=== PATIENT | female | born 1990 | race American Indian/Alaskan Native ===

== ENCOUNTER 2017-01-28 14:08 | Observation (INO) | payer MEDICAID, OTHER ==
[2017-01-28 14:24] VITALS: BMI 24.3
[2017-01-28 14:41] VITALS: BP 101/57; TEMP 97.5
[2017-01-28] MEDS ORDERED: Sodium Chloride 0.9% 1,000 ML IV STA (14:45)
[2017-01-28 15:05] LABS: URINE APPEARANCE CLEAR (CLEAR); URINE BILIRUBIN NEGATIVE (NEGATIVE); URINE BLOOD MODERATE (NEGATIVE); URINE COLOR YELLOW (YELLOW); URINE GLUCOSE (UA) NEGATIVE (NEGATIVE); URINE KETONE TRACE mg/dL (NEGATIVE); URINE LEUKOCYTE ESTERASE NEGATIVE Leu/uL (NEGATIVE); URINE PROTEIN NEGATIVE mg/dL (<30 mg/dL); URINE UROBILINOGEN 0.2 E.U./dL (<1 E.U./dL)
[2017-01-28 15:13] LABS: ADD MANUAL DIFF? NO
[2017-01-28 15:14] LABS: URINE BACTERIA FEW (NEG); URINE EPITHELIAL CELLS 0 - 2 /hpf (0-5); URINE WBC 0 - 2 /hpf (0-6)
[2017-01-28 15:17] LABS: BASO # 0.01 K/mm3 (0.0-2.0); BASO % 0.2 % (0.0-3.0); EOS # 0.1 (0.0-0.7); EOS % 2.5 % (1.5-5.0); GRAN # 2.44 (1.4-6.5); GRAN % 50.4 % (50.0-68.0); HEMATOCRIT 31.6 % (36.0-48.0); LYMPH # 2.1 (1.2-3.4); MEAN CORPUSCULAR HEMOGLOBIN 38.3 pg (25.0-35.0); MEAN CORPUSCULAR HGB CONC 36.1 g/dl (31.0-37.0); MEAN PLATELET VOLUME 8.7 fl (7.0-11.0); MONO # 0.1 (0.1-0.6); MONO % 2.9 % (1.0-6.0); PLATELET COUNT 250 10^3/uL (120.0-450.0); RED CELL DISTRIBUTION WIDTH 14.8 % (11.5-14.5); WHITE BLOOD COUNT 4.8 10^3/ul (4.5-11.0)
[2017-01-28 15:30] LABS: ALB/GLOB RATIO 1.4 (1.1-1.8); ALKALINE PHOSPHATASE 51 U/L (38-133); ALT/SGPT 25 U/L (7-56); AMYLASE 99 U/L (35-125); AST/SGOT 40 U/L (15-39); BILIRUBIN,TOTAL 0.9 mg/dL (0.2-1.3); BLOOD UREA NITROGEN 15 mg/dL (7-21); CALCIUM 9.7 mg/dL (8.4-10.5); CARBON DIOXIDE 31 mmol/L (21-33); CHLORIDE 102 mmol/L (98-107); GFR AFRICAN-AMERICAN > 60; GLUCOSE,RANDOM 84 mg/dL (70-110); LIPASE 85 U/L (23-300); POTASSIUM 4.7 mmol/L (3.6-5.0); SODIUM 140 mmol/L (132-148)
--- NOTE | 2017-01-28 16:20 | ED PDOC ---
Arrival/HPI - General Chief Complaint: GI Problem Time Seen by Provider: 01/28/17 14:29 Historian: Patient - History of Present Illness Narrative History of Present Illness (Text): 01/28/17 16:18 26-year-old female presents today with worsening abdominal pain since mid December. Patient states for almost a month the patient has been having diffuse abdominal pain greater in the right upper quadrant of the abdomen. Patient denies nausea vomiting or diarrhea. Complaining of urinating more frequently. Denies dysuria. Denies vaginal bleeding or vaginal discharge. Denies . No medications have been taken for pain at home. Patient denies any alleviating or exacerbating factors. Patient states she is also having back pain. No chest pain or shortness of breath. No other complaints Past Medical History - Provider Review Nursing Documentation Reviewed: Yes - Travel History Have you recently traveled outside [place] w/in the past 3 mons?: No - Infectious Disease Hx of Infectious Diseases: None - Tetanus Immunization Tetanus Immunization: Unknown - Past Medical History Past Medical History: No Previous - Cardiac Hx Cardiac Disorders: No - Pulmonary Hx Respiratory Disorders: No - Neurological Hx Neurological Disorder: No - HEENT Hx HEENT Disorder: No - Renal Hx Renal Disorder: No - Endocrine/Metabolic Hx Endocrine Disorders: No - Hematological/Oncological Hx Blood Disorders: No - Integumentary Hx Dermatological Disorder: No - Musculoskeletal/Rheumatological Hx Musculoskeletal Disorders: No - Gastrointestinal Hx Gastrointestinal Disorders: No - Genitourinary/Gynecological Hx Genitourinary Disorders: No - Psychiatric Hx Depression: No Hx Emotional Abuse: No Hx Physical Abuse: No Hx Substance Use: No - Past Surgical History Past Surgical History: No Previous - Anesthesia Hx Anesthesia: No Hx Anesthesia Reactions: No Hx Malignant Hyperthermia: No - Suicidal Assessment Feels Threatened In Home Enviroment: No Family/Social History - Physician Review Nursing Documentation Reviewed: Yes Family/Social History: Unknown Family HX Smoking Status: Former Smoker Hx Alcohol Use: No Hx Substance Use: No Hx Substance Use Treatment: No Allergies/Home Meds Allergies/Adverse Reactions: Allergies citric acid Allergy (Verified 01/28/17 14:24) ANAPHYLAXIS ORANGE Allergy (Verified 09/01/16 17:58) SHORTNESS OF BREATH Review of Systems - Review of Systems Constitutional: absent: Fatigue, Fevers Respiratory: absent: SOB, Cough Cardiovascular: absent: Chest Pain, Palpitations Gastrointestinal: Abdominal Pain. absent: Constipation, Diarrhea, Nausea, Vomiting, Appetite Changes Genitourinary Female: Frequency. absent: Dysuria, Hematuria, Vaginal Bleeding, Vaginal Discharge Musculoskeletal: Back Pain. absent: Arthralgias, Neck Pain Skin: absent: Rash, Pruritis Neurological: absent: Headache, Dizziness Psychiatric: absent: Anxiety, Depression Physical Exam Vital Signs Reviewed: Yes Vital Signs Temp Pulse Resp BP Pulse Ox 01/28/17 16:25 95 H 16 98 01/28/17 14:40 97.5 F L 97 H 18 101/57 L 100 Temperature: Afebrile Blood Pressure: Normal Pulse: Regular Respiratory Rate: Normal Appearance: Positive for: Well-Appearing, Non-Toxic, Comfortable Pain Distress: None Mental Status: Positive for: Alert and Oriented X 3 - Systems Exam Head: Present: Atraumatic Mouth: Present: Moist Mucous Membranes Neck: Present: Normal Range of Motion Respiratory/Chest: Present: Clear to Auscultation, Good Air Exchange. No: Respiratory Distress, Accessory Muscle Use Cardiovascular: Present: Regular Rate and Rhythm, Normal S1, S2. No: Murmurs Abdomen: Present: Tenderness (+ minimal ruq tenderness; ), Normal Bowel Sounds. No: Distention, Peritoneal Signs, Rebound Back: Present: Normal Inspection. No: CVA Tenderness, Midline Tenderness, Paraspinal Tenderness Neurological: Present: GCS=15, Speech Normal Skin: Present: Warm, Dry, Normal Color. No: Rashes Psychiatric: Present: Alert, Oriented x 3 Medical Decision Making ED Course and Treatment: 01/28/17 16:32 Patient is nontoxic well appearing with stable vital signs presenting with abdominal pain ruq, and lower abdomen. CBC wnl CMP wnl Amylase wnl Lipase wnl Urinalysis + blood CAT scan:FINDINGS: LOWER THORAX: Unremarkable. LIVER: Unremarkable. No gross lesion or ductal dilatation. GALLBLADDER AND BILE DUCTS: Unremarkable. PANCREAS: Unremarkable. No gross lesion or ductal dilatation. SPLEEN: Unremarkable. Small accessory splenule. ADRENALS: Unremarkable. No mass. KIDNEYS AND URETERS: Unremarkable. No hydronephrosis. No solid mass. VASCULATURE: Unremarkable. No aortic aneurysm. BOWEL: Unremarkable. No obstruction. No gross mural thickening. Constipation without fecal impaction or obstruction. APPENDIX: Unremarkable. Normal appendix. PERITONEUM: Unremarkable. No free fluid. No free air. LYMPH NODES: Multiple small mesenteric lymph nodes compatible with mesenteric adenitis. Similar small periaortic lymph nodes identified none larger than 1 cm. BLADDER: Unremarkable. REPRODUCTIVE: Left ovarian cyst 2.1 x 3.3 cm. BONES: No acute fracture. OTHER FINDINGS: None. IMPRESSION: 1. No evidence of renal calculus disease, obstructive uropathy, hydroureter. No bladder abnormalities identified. 2. Findings suggestive of mesenteric adenitis. 3. Unilateral left-sided adnexal cyst. Patient reassessment: pt non toxic well appearing; no distress. eating in er. Discussed all results with patient in depth all aspects of this case were discussed the attending of record. Impression: Abdominal pain, mesenteric adenitis, ovarian cyst Motrin every 6 hours as needed for pain Follow up with primary care physician within the next 2 days Follow up with assistant public defender within the next 2 days. Return immediately if symptoms worsen persist or if new symptoms develop: High fevers, increasing pain, vomiting, diarrhea or any other concerning symptoms develop - Lab Interpretations Lab Results: Lab Results 01/28/17 14:30: Urine Color Yellow, Urine Appearance Clear, Urine pH 6.0, Ur Specific Hamilton >= 1.030, Urine Protein Negative, Urine Glucose (UA) Negative, Urine Ketones Trace H, Urine Blood Moderate H, Urine Nitrate Negative, Urine Bilirubin Negative, Urine Urobilinogen 0.2, Ur Leukocyte Esterase Negative, Urine RBC 2 - 5, Urine WBC 0 - 2, Ur Epithelial Cells 0 - 2, Urine Bacteria Few , Urine HCG, Qual Negative - Medication Orders Current Medication Orders: Discontinued Medications Sodium Chloride (Sodium Chloride 0.9%) 1,000 mls @ 999 mls/hr IV .Q1H1M STA Stop: 01/28/17 15:45 Last Admin: 01/28/17 15:16 Dose: 999 MLS/HR eMAR Start Stop Document 01/28/17 15:16 [email or web address] (Rec: 01/28/17 15:16 [email or web address] [id number]) Intravenous Solution Start Date 01/28/17 Start Time 15:16 End Date 01/28/17 ED OBSERVATION Discharge: Yes Date of observation admission: 01/28/17 Time of observation admission: 14:45 - Observation admission statement Patient is being placed in observation because:: abdominal pain - Goals of Observation Goals of observation are:: improvement in symptoms. diagnosis of pain - Progress Note Progress Note: 01/28/17 15:55 pt non toxic well appearing; no distress. 01/28/17 18:18 pt non toxic well appearing; no distress. stable vitals. Disposition/Present on Arrival - Present on Arrival Any Indicators Present on Arrival: No History of DVT/PE: No History of Uncontrolled Diabetes: No Urinary Catheter: No History of Decub. Ulcer: No History Surgical Site Infection Following: None - Disposition Have Diagnosis and Disposition been Completed?: Yes Diagnosis: Abdominal pain, Mesenteric adenitis, Ovarian cyst Disposition: HOME/ ROUTINE Disposition Time: 18:21 Patient Plan: Discharge Patient Problems: Current Active Problems Problem Status Diagnosed Abdominal pain Acute Mesenteric adenitis Acute Ovarian cyst Acute Condition: GOOD
[2017-01-28 16:26] VITALS: PULSE 95; RESP 16; O2SAT 98
--- NOTE | 2017-01-28 18:14 | CT ---
PROCEDURE: CT Abdomen and Pelvis without intravenous contrast HISTORY: right sided ABDOMINAL PAIN/ back pain By history, negative test (concurrent with this examination). COMPARISON: None. TECHNIQUE: Unenhanced study. Neither oral nor intravenous contrast administered. Radiation dose: Total exam DLP = 696.71 mGy-cm. FINDINGS: LOWER THORAX: Unremarkable. LIVER: Unremarkable. No gross lesion or ductal dilatation. GALLBLADDER AND BILE DUCTS: Unremarkable. PANCREAS: Unremarkable. No gross lesion or ductal dilatation. SPLEEN: Unremarkable. Small accessory splenule. ADRENALS: Unremarkable. No mass. KIDNEYS AND URETERS: Unremarkable. No hydronephrosis. No solid mass. VASCULATURE: Unremarkable. No aortic aneurysm. BOWEL: Unremarkable. No obstruction. No gross mural thickening. Constipation without fecal impaction or obstruction. APPENDIX: Unremarkable. Normal appendix. PERITONEUM: Unremarkable. No free fluid. No free air. LYMPH NODES: Multiple small mesenteric lymph nodes compatible with mesenteric adenitis. Similar small periaortic lymph nodes identified none larger than 1 cm. BLADDER: Unremarkable. REPRODUCTIVE: Left ovarian cyst 2.1 x 3.3 cm. BONES: No acute fracture. OTHER FINDINGS: None. IMPRESSION: 1. No evidence of renal calculus disease, obstructive uropathy, hydroureter. No bladder abnormalities identified. 2. Findings suggestive of mesenteric adenitis. 3. Unilateral left-sided adnexal cyst.
== END 2017-01-28 18:22 | disposition home or self-care (01) ==
LOC: ED 14:08 → EROBSV 14:45
PROVIDERS: ADMIT Emergency Medicine; ATTEND Emergency Medicine
DX: R10.84 Generalized abdominal pain (principal); I88.0 Nonspecific mesenteric lymphadenitis; N83.202 Unspecified ovarian cyst, left side; Z87.891 Personal history of nicotine dependence
CPT/HCPCS: 74176; 80053; 81001; 82150; 83690; 84703; 85025; 99284; G0378; J7040

== ENCOUNTER 2017-10-02 13:28 | Emergency (ER) | payer MEDICAID, OTHER ==
[2017-10-02 13:40] VITALS: RESP 18; TEMP 98.3; O2SAT 100; BMI 25.8
--- NOTE | 2017-10-02 15:31 | ED PDOC ---
Arrival/HPI - General Chief Complaint: Lower Extremity Problem/Injury Time Seen by Provider: 10/02/17 13:46 Historian: Patient - History of Present Illness Narrative History of Present Illness (Text): 10/02/17 17:52 27 y/o female presents to the ED complaining of right knee pain since this morning. Pt states she's had the same knee pain intermittently for 8 yrs. States 8 yrs ago she had a knee injury from playing basketball. Every since then , she's had reoccurrence of pain everytime it's cold outside. Pt states she took Aspirin this morning with relief of pain. States last time she had an XR of the knee was 8 yrs ago. Denies any new trauma, fall, numbness of the lower extremity or any other symptoms. Past Medical History - Provider Review Nursing Documentation Reviewed: Yes - Travel History Have you recently traveled outside [place] w/in the past 3 mons?: No - Past History Past History: Non-Contributing - Infectious Disease Hx of Infectious Diseases: None - Tetanus Immunization Tetanus Immunization: Unknown - Past Medical History Past Medical History: No Previous - Cardiac Hx Cardiac Disorders: No - Pulmonary Hx Respiratory Disorders: No - Neurological Hx Neurological Disorder: No - HEENT Hx HEENT Disorder: No - Renal Hx Renal Disorder: No - Endocrine/Metabolic Hx Endocrine Disorders: No - Hematological/Oncological Hx Blood Disorders: No - Integumentary Hx Dermatological Disorder: No - Musculoskeletal/Rheumatological Hx Musculoskeletal Disorders: No - Gastrointestinal Hx Gastrointestinal Disorders: No - Genitourinary/Gynecological Hx Genitourinary Disorders: No - Psychiatric Hx Depression: No Hx Emotional Abuse: No Hx Physical Abuse: No Hx Substance Use: No - Past Surgical History Past Surgical History: No Previous - Anesthesia Hx Anesthesia: No Hx Anesthesia Reactions: No Hx Malignant Hyperthermia: No - Suicidal Assessment Feels Threatened In Home Enviroment: No Family/Social History - Physician Review Nursing Documentation Reviewed: Yes Family/Social History: Unknown Family HX Smoking Status: Former Smoker Hx Alcohol Use: No Hx Substance Use: No Hx Substance Use Treatment: No Allergies/Home Meds Allergies/Adverse Reactions: Allergies citric acid Allergy (Verified 10/02/17 13:40) ANAPHYLAXIS ORANGE Allergy (Verified 10/02/17 13:40) SHORTNESS OF BREATH Review of Systems - Physician Review All systems were reviewed & negative as marked: Yes - Review of Systems Constitutional: absent: Fevers Musculoskeletal: Other (right knee pain) Skin: Normal Psychiatric: Normal Physical Exam Vital Signs Reviewed: Yes Vital Signs Temp Pulse Resp BP Pulse Ox 10/02/17 15:49 91 H 18 117/72 100 10/02/17 13:37 98.3 F 97 H 18 112/75 100 Temperature: Afebrile Blood Pressure: Normal Pulse: Regular Respiratory Rate: Normal Appearance: Positive for: Well-Appearing, Non-Toxic Pain Distress: None Mental Status: Positive for: Alert and Oriented X 3 - Systems Exam Lower Extremity: Present: Normal Inspection, NORMAL PULSES, Normal ROM, Tenderness (mild tenderness on medial aspect of right knee), Neurovascularly Intact. No: CALF TENDERNESS, Swelling, Erythema, Deformity Neurological: Present: GCS=15 Skin: Present: Warm, Dry Psychiatric: Present: Alert, Oriented x 3 Medical Decision Making ED Course and Treatment: 10/02/17 18:15 Knee pain for 8 yrs with recent reoccurence since this morning. No pain while in the ED. XR of knee negative for fracture or any acute pathology. No reoccurrence of pain while in the ED. BERNICE wrap ordered. Follow up with PCP in 2 days advised. Pt expressed understanding and agrees with the plan. Reassessment Condition: Unchanged - RAD Interpretation Radiology Orders: 10/02/17 14:32 KNEE W PATELLA RIGHT 3 VIEW [RAD] Stat Disposition/Present on Arrival - Present on Arrival Any Indicators Present on Arrival: No History of DVT/PE: No History of Uncontrolled Diabetes: No Urinary Catheter: No History of Decub. Ulcer: No History Surgical Site Infection Following: None - Disposition Have Diagnosis and Disposition been Completed?: Yes Diagnosis: Knee pain, chronic Disposition: HOME/ ROUTINE Disposition Time: 15:28 Patient Plan: Discharge Condition: STABLE Discharge Instructions (ExitCare): Knee Pain (ED) Print Language: CYPRIOT Additional Instructions: Rest,apply ice, use bernice wrap for compression. Take Naproxen as needed for pain. FOllow up with a r specialist if no improvement of pain within 5 days. Return to the ED if symptoms worsen. Prescriptions: Naproxen [Naprosyn] 500 mg PO BID PRN #30 tablet PRN Reason: Pain, Moderate (4-7) Referrals: Susan Dexter MD [Primary Care Provider] - Follow up with primary
--- NOTE | 2017-10-02 15:34 | RAD ---
PROCEDURE: Right Knee Radiographs. HISTORY: knee pain COMPARISON: None. FINDINGS: BONES: Normal. No fracture. JOINTS: Normal. No osteoarthritis. JOINT EFFUSION: None. OTHER FINDINGS: None. IMPRESSION: Normal radiographs of the right knee.
[2017-10-02 16:00] VITALS: BP 117/72; PULSE 91
== END 2017-10-02 15:49 | disposition home or self-care (01) ==
LOC: ED 13:28
DX: M25.561 Pain in right knee (principal); G89.29 Other chronic pain

== ENCOUNTER 2017-12-03 06:08 | Emergency (ER) | payer OTHER ==
[2017-12-03 07:04] VITALS: RESP 16
[2017-12-03 07:23] VITALS: PULSE 82; O2SAT 99
[2017-12-03] MEDS ORDERED: Sodium Chloride 0.9% 1,000 ML IV STA (07:32)
[2017-12-03] MEDS ORDERED: Iohexol 240 (50 ml) ONE (07:37)
--- NOTE | 2017-12-03 08:07 | ED PDOC ---
Arrival/HPI - General Chief Complaint: Medical Clearance Time Seen by Provider: 12/03/17 07:15 Historian: Patient - History of Present Illness Narrative History of Present Illness (Text): 12/03/17 08:07 A 27 year old female presents to the emergency department complaining of diffuse abdominal pain for a month. Notes pain has been increasing over the past week. Patient reports similar complaint 8-9 months ago, where she was evaluated in emergency department, discharged and never followed up with outbound sales executive or physician. Patient denies any fever, nausea, vomiting, blood in stool, blood in urine, dysuria or any other complaints at this time. Time/Duration: Other (month) Symptom Onset: Sudden Symptom Course: Unchanged Activities at Onset: Rest Context: Home Associated Symptoms (Text): none Past Medical History - Provider Review Nursing Documentation Reviewed: Yes - Past History Past History: Non-Contributing - Infectious Disease Hx of Infectious Diseases: None - Tetanus Immunization Tetanus Immunization: Unknown - Past Medical History Past Medical History: No Previous - Cardiac Hx Cardiac Disorders: No - Pulmonary Hx Respiratory Disorders: No - Neurological Hx Neurological Disorder: No - HEENT Hx HEENT Disorder: No - Renal Hx Renal Disorder: No - Endocrine/Metabolic Hx Endocrine Disorders: No - Hematological/Oncological Hx Blood Disorders: No - Integumentary Hx Dermatological Disorder: No - Musculoskeletal/Rheumatological Hx Musculoskeletal Disorders: No - Gastrointestinal Hx Gastrointestinal Disorders: No - Genitourinary/Gynecological Hx Genitourinary Disorders: No - Psychiatric Hx Depression: No Hx Emotional Abuse: No Hx Physical Abuse: No Hx Substance Use: No - Past Surgical History Past Surgical History: No Previous - Anesthesia Hx Anesthesia: No Hx Anesthesia Reactions: No Hx Malignant Hyperthermia: No - Suicidal Assessment Feels Threatened In Home Enviroment: No Family/Social History - Physician Review Nursing Documentation Reviewed: Yes Family/Social History: No Known Family HX Smoking Status: Never Smoked Hx Alcohol Use: No Frequency of alcohol use: Daily Hx Substance Use: No Hx Substance Use Treatment: No Allergies/Home Meds Allergies/Adverse Reactions: Allergies No Known Allergies Allergy (Verified 12/03/17 07:05) Review of Systems - Physician Review All systems were reviewed & negative as marked: Yes - Review of Systems Constitutional: absent: Fevers Gastrointestinal: Abdominal Pain (diffuse). absent: Nausea, Vomiting, Hematochezia Genitourinary Female: absent: Dysuria, Hematuria Physical Exam Vital Signs Reviewed: Yes Vital Signs Temp Pulse Resp BP Pulse Ox 12/03/17 11:00 98.1 F 82 16 111/72 99 12/03/17 07:19 98.4 F 82 16 123/67 99 12/03/17 06:21 99.3 F 121 H 16 115/58 L 98 Temperature: Afebrile Blood Pressure: Hypotensive Pulse: Tachycardic Respiratory Rate: Normal Appearance: Positive for: Well-Appearing, Non-Toxic, Comfortable Pain Distress: None Mental Status: Positive for: Alert and Oriented X 3 - Systems Exam Head: Present: Atraumatic, Normocephalic Pupils: Present: PERRL Extroacular Muscles: Present: EOMI Conjunctiva: Present: Normal Mouth: Present: Moist Mucous Membranes Neck: Present: Normal Range of Motion Respiratory/Chest: Present: Clear to Auscultation, Good Air Exchange. No: Respiratory Distress, Accessory Muscle Use Cardiovascular: Present: Regular Rate and Rhythm, Normal S1, S2. No: Murmurs Abdomen: Present: Tenderness (diffuse), Normal Bowel Sounds, Other (not cooperative with exam, abd soft, positive bowel sounds). No: Distention, Peritoneal Signs Back: Present: Normal Inspection Upper Extremity: Present: Normal Inspection. No: Cyanosis, Edema Lower Extremity: Present: Normal Inspection. No: Edema Neurological: Present: GCS=15, CN II-XII Intact, Speech Normal Skin: Present: Warm, Dry, Normal Color. No: Rashes Psychiatric: Present: Alert, Oriented x 3, Normal Insight, Normal Concentration Medical Decision Making ED Course and Treatment: 12/03/17 08:04 Impression: A 27 year old female with diffuse abdominal pain. Plan: -- CT abd/pelvis -- labs -- Urinalysis -- Pepcid, IV fluids -- Reassess and disposition Prior Visits: Notes and results from previous visits were reviewed. Patient was last seen in the emergency department on 10/02/17 for evaluation of right knee pain. Progress Notes: 12/03/17 10:24 CT Abdomen and Pelvis with contrast Creator : Sidney Torres MD FINDINGS: LOWER THORAX: Unremarkable. LIVER: Unremarkable. No gross lesion or ductal dilatation. GALLBLADDER AND BILE DUCTS: Unremarkable. PANCREAS: Unremarkable. No gross lesion or ductal dilatation. SPLEEN: Unremarkable. ADRENALS: Unremarkable. No mass. KIDNEYS AND URETERS: Unremarkable. No hydronephrosis. No solid mass. VASCULATURE: Unremarkable. No aortic aneurysm. BOWEL: Unremarkable. No obstruction. No gross mural thickening. APPENDIX:Normal appendix. PERITONEUM: Unremarkable. No free fluid. No free air. LYMPH NODES: Unremarkable. No enlarged lymph nodes. BLADDER: Unremarkable. REPRODUCTIVE: There is a small amount of fluid in the cul-de-sac. Bilateral ovarian cysts are seen. BONES: No acute fracture. IMPRESSION: No evidence of appendicitis. Bilateral ovarian cysts. Small amount of fluid in the cul-de-sac consistent with recent cyst rupture. 12/03/17 10:45 On re-evaluation, patient feels better and is in no acute distress. I have discussed the results and plan with the patient, who expresses understanding. Patient in agreement with plan to be discharged home. Patient is stable for discharge. Patient was instructed to follow up with physician or return if symptoms worsen or new concerning symptoms arise. - Lab Interpretations Lab Results: 12/03/17 08:00 12/03/17 08:00 Lab Results 12/03/17 08:00: Sodium 144, Potassium 3.9, Chloride 108 H, Carbon Dioxide 25, Anion Gap 16, BUN 11, Creatinine 0.8, Est GFR ( Amer) > 60, Est GFR (Non- Af Amer) > 60, Random Glucose 92, Calcium 9.7, Total Bilirubin 0.5, AST 49 H, ALT 46, Alkaline Phosphatase 62, Total Protein 7.9, Albumin 4.7, Globulin 3.2, Albumin/Globulin Ratio 1.5, Amylase 67, Lipase 73 12/03/17 08:00: Urine Color Yellow, Urine Appearance Turbid, Urine pH 6.0, Ur Specific M[place]ers >= 1.030, Urine Protein Trace H, Urine Glucose (UA) Negative, Urine Ketones Trace H, Urine Blood Large H, Urine Nitrate Negative, Urine Bilirubin Negative, Urine Urobilinogen 1.0 H, Ur Leukocyte Esterase Negative, Urine RBC 10 - 15, Urine WBC 0 - 2, Ur Epithelial Cells 10 - 12, Urine Bacteria Mod 12/03/17 08:00: WBC 9.2 D, RBC 3.38 L, Hgb 12.6, Hct 37.4, MCV 110.7 H, MCH 37.3 H, MCHC 33.7, RDW 13.7, Plt Count 428, MPV 8.9, Gran % 68.7 H, Lymph % ( Auto) 25.5, [place] % (Auto) 4.1, Eos % (Auto) 1.5, Baso % (Auto) 0.2, Gran # 6.33 , Lymph # 2.4, Cand[place] # 0.4, Eos # 0.1, Baso # 0.02 I have reviewed the lab results: Yes - RAD Interpretation Radiology Orders: 12/03/17 07:32 ABD PELVIS PO & IV CONTRAST [CT] Stat - Medication Orders Current Medication Orders: Discontinued Medications Famotidine (Pepcid) 20 mg IVP STAT STA Stop: 12/03/17 07:33 Last Admin: 12/03/17 08:00 Dose: 20 mg IVP Administration Document 12/03/17 08:00 MS (Rec: 12/03/17 08:40 [place] [facility] [id number] Charges for Administration # of IVP Administrations 1 Sodium Chloride (Sodium Chloride 0.9%) 1,000 mls @ 1,000 mls/hr IV .Q1H STA Stop: 12/03/17 08:31 Last Admin: 12/03/17 08:40 Dose: 1,000 mls/hr eMAR Start Stop Document 12/03/17 08:40 MS (Rec: 12/03/17 08:40 MS [facility] [id number]) Intravenous Solution Start Date 12/03/17 Start Time 08:00 End Date 12/03/17 End time 09:00 Total Infusion Time 60 Ibuprofen (Motrin Tab) 600 mg PO STAT STA Stop: 12/03/17 10:44 Last Admin: 12/03/17 10:55 Dose: 600 mg MAR Pain/Vitals Document 12/03/17 10:55 MS (Rec: 12/03/17 11:02 MS [facility] [id number]) Pain Reassessment Is This A Pain ReAssessment? No Sleep Is patient sleeping during reassessment? No Pain Scale Used Pain Scale Used Numeric Location Upper or Lower Lower Pain Location Body Site Abdomen Description Intermittent - Scribe Statement The provider has reviewed the documentation as recorded by the Ela Garcia Provider Scribe Attestation: All medical record entries made by the Scribe were at my direction and personally dictated by me. I have reviewed the chart and agree that the record accurately reflects my personal performance of the history, physical exam, medical decision making, and the department course for this patient. I have also personally directed, reviewed, and agree with the discharge instructions and disposition. Disposition/Present on Arrival - Present on Arrival Any Indicators Present on Arrival: No History of DVT/PE: No History of Uncontrolled Diabetes: No Urinary Catheter: No History of Decub. Ulcer: No History Surgical Site Infection Following: None - Disposition Have Diagnosis and Disposition been Completed?: Yes Diagnosis: Ovarian cyst Disposition: HOME/ ROUTINE Disposition Time: 10:20 Condition: IMPROVED Discharge Instructions (ExitCare): Ovarian Cyst (ED) Additional Instructions: Thank you for letting us take care of you today. The emergency medical care you received today was directed at your acute symptoms. If you were prescribed any medication, please fill it and take as directed. It may take several days for your symptoms to resolve. Return to the Emergency Department if your symptoms worsen, do not improve, or if you have any other problems. Please contact your doctor or call one of the physicians/clinics you have been referred to that are listed on the Patient Visit Information form that is included in your discharge packet. Bring any paperwork you were given at discharge with you along with any medications you are taking to your follow up visit. Our treatment cannot replace ongoing medical care by a primary care provider (PCP) outside of the emergency department. Thank you for allowing the [facility] team to be part of your care today. Follow up with the clinic for outpatient care and management. Prescriptions: Ibuprofen [Motrin] 600 mg PO Q6 PRN #20 tab PRN Reason: Pain, Moderate (4-7) Referrals: [facility] [Outside] - Follow up with primary [facility] [Outside] - Follow up with primary Forms: [employer] ([place]ian)
[2017-12-03 08:23] LABS: BASO # 0.02 K/mm3 (0.0-2.0); BASO % 0.2 % (0.0-3.0); EOS # 0.1 (0.0-0.7); EOS % 1.5 % (1.5-5.0); GRAN # 6.33 (1.4-6.5); GRAN % 68.7 % (50.0-68.0); HEMOGLOBIN 12.6 g/dL (12.0-16.0); LYMPH # 2.4 (1.2-3.4); LYMPH % 25.5 % (22.0-35.0); MEAN CELL VOLUME 110.7 fl (80.0-105.0); MEAN CORPUSCULAR HEMOGLOBIN 37.3 pg (25.0-35.0); MEAN CORPUSCULAR HGB CONC 33.7 g/dl (31.0-37.0); MEAN PLATELET VOLUME 8.9 fl (7.0-11.0); MONO # 0.4 (0.1-0.6); MONO % 4.1 % (1.0-6.0); RBC 3.38 10^6/uL (3.5-6.1); RED CELL DISTRIBUTION WIDTH 13.7 % (11.5-14.5); URINE APPEARANCE TURBID (CLEAR); URINE BILIRUBIN NEGATIVE (NEGATIVE); URINE BLOOD LARGE (NEGATIVE); URINE COLOR YELLOW (YELLOW); URINE GLUCOSE (UA) NEGATIVE (NEGATIVE); URINE LEUKOCYTE ESTERASE NEGATIVE Leu/uL (NEGATIVE); URINE NITRATE NEGATIVE (NEGATIVE); URINE PROTEIN TRACE mg/dL (<30 mg/dL); WHITE BLOOD COUNT 9.2 10^3/ul (4.5-11.0)
[2017-12-03 08:33] LABS: BLOOD UREA NITROGEN 11 mg/dL (7-21); GFR AFRICAN-AMERICAN > 60; GFR NON-AFRICAN AMERICAN > 60
[2017-12-03 08:34] LABS: ALB/GLOB RATIO 1.5 (1.1-1.8); ALBUMIN 4.7 g/dL (3.0-4.8); ALT/SGPT 46 U/L (7-56); AMYLASE 67 U/L (35-125); AST/SGOT 49 U/L (14-36); CALCIUM 9.7 mg/dL (8.4-10.5); LIPASE 73 U/L (23-300)
[2017-12-03 08:36] LABS: URINE BACTERIA MOD (NEG); URINE WBC 0 - 2 /hpf (0-6)
[2017-12-03] MEDS ORDERED: Iohexol 350 MG/100 ML VIAL ONE (09:00)
--- NOTE | 2017-12-03 10:23 | CT ---
PROCEDURE: CT Abdomen and Pelvis with contrast HISTORY: abd pain- mostly in RLQ COMPARISON: None. TECHNIQUE: Contrast dose: 100 cc of Omni 350 Radiation dose: Total exam DLP = 887 mGy-cm. This CT exam was performed using one or more of the following dose reduction techniques: Automated exposure control, adjustment of the mA and/or kV according to patient size, and/or use of iterative reconstruction technique. FINDINGS: LOWER THORAX: Unremarkable. LIVER: Unremarkable. No gross lesion or ductal dilatation. GALLBLADDER AND BILE DUCTS: Unremarkable. PANCREAS: Unremarkable. No gross lesion or ductal dilatation. SPLEEN: Unremarkable. ADRENALS: Unremarkable. No mass. KIDNEYS AND URETERS: Unremarkable. No hydronephrosis. No solid mass. VASCULATURE: Unremarkable. No aortic aneurysm. BOWEL: Unremarkable. No obstruction. No gross mural thickening. APPENDIX: Normal appendix. PERITONEUM: Unremarkable. No free fluid. No free air. LYMPH NODES: Unremarkable. No enlarged lymph nodes. BLADDER: Unremarkable. REPRODUCTIVE: There is a small amount of fluid in the cul-de-sac. Bilateral ovarian cysts are seen. BONES: No acute fracture. OTHER FINDINGS: None. IMPRESSION: No evidence of appendicitis. Bilateral ovarian cysts. Small amount of fluid in the cul-de-sac consistent with recent cyst rupture.
[2017-12-03 11:14] VITALS: BP 111/72; TEMP 98.1
== END 2017-12-03 11:00 | disposition home or self-care (01) ==
LOC: ED 06:08
DX: N83.201 Unspecified ovarian cyst, right side (principal); N83.202 Unspecified ovarian cyst, left side
CPT/HCPCS: 74177; 80053; 81001; 82150; 83690; 85025; 87086; 96361; 96374; 99283; J7040; Q9966; Q9967

== ENCOUNTER 2017-12-09 10:01 | Inpatient (IN) | payer MEDICAID, OTHER ==
[2017-12-09 10:25] VITALS: BMI 26.6
--- NOTE | 2017-12-09 12:37 | ED PDOC ---
Arrival/HPI - General Chief Complaint: Cough, Cold, Congestion Time Seen by Provider: 12/09/17 11:08 Historian: Patient - History of Present Illness Narrative History of Present Illness (Text): 12/09/17 12:37 A 27 year old female presents to the emergency department complaining of a worsening cough for the past day and an episode of hemoptysis. She also notes right lower rib pain that radiates to her side. Patient was recently hospitalized 2 days ago for pneumonia and discharged on antibiotics, which she started taking today. Patient reports bilateral leg numbness for 1 year and weakness b/l Right greater than Left that began approximately 3 months ago. She notes being seen by a neurologist, who said she'd have to be worked up with Lupus. Patient denies any fever, chills, nausea, vomiting, abdominal pain, chest pain, shortness of breath or any other complaints. Patient denies any recent travel. PMD: Dr. Dexter Time/Duration: Other (few days) Symptom Course: Worsening (today) Context: Home Past Medical History - Provider Review Nursing Documentation Reviewed: Yes - Past History Past History: Non-Contributing - Infectious Disease Hx of Infectious Diseases: None - Tetanus Immunization Tetanus Immunization: Unknown - Past Medical History Past Medical History: No Previous - Cardiac Hx Cardiac Disorders: No - Pulmonary Hx Respiratory Disorders: Yes Hx Pneumonia: Yes - Neurological Hx Neurological Disorder: No - HEENT Hx HEENT Disorder: No - Renal Hx Renal Disorder: No - Endocrine/Metabolic Hx Endocrine Disorders: No - Hematological/Oncological Hx Blood Disorders: No - Integumentary Hx Dermatological Disorder: No - Musculoskeletal/Rheumatological Hx Musculoskeletal Disorders: Yes Hx Back Pain: Yes - Gastrointestinal Hx Gastrointestinal Disorders: No - Genitourinary/Gynecological Hx Genitourinary Disorders: Yes Other/Comment: OVARIAN CYST - Psychiatric Hx Psychophysiologic Disorder: Yes Hx Anxiety: Yes Hx Depression: No Hx Emotional Abuse: No Hx Physical Abuse: No Hx Substance Use: No - Past Surgical History Past Surgical History: No Previous - Surgical History Hx Cardiac Catheterization: No Hx Coronary Stent: No - Anesthesia Hx Anesthesia: No Hx Anesthesia Reactions: No Hx Malignant Hyperthermia: No - Suicidal Assessment Feels Threatened In Home Enviroment: No Family/Social History - Physician Review Nursing Documentation Reviewed: Yes Family/Social History: No Known Family HX Smoking Status: Never Smoked Hx Alcohol Use: No Hx Substance Use: No Hx Substance Use Treatment: No Allergies/Home Meds Allergies/Adverse Reactions: Allergies No Known Allergies Allergy (Verified 12/09/17 10:26) Review of Systems - Physician Review All systems were reviewed & negative as marked: Yes - Review of Systems Constitutional: absent: Fevers, Night Sweats Respiratory: Cough (+hemoptysis). absent: SOB Cardiovascular: absent: Chest Pain Gastrointestinal: absent: Abdominal Pain, Nausea, Vomiting Musculoskeletal: Other (right lower rib pain) Neurological: Other (chronic bilateral leg numbness/weakness) Physical Exam Vital Signs Reviewed: Yes Vital Signs Temp Pulse Resp BP Pulse Ox 12/09/17 21:44 121 H 18 106/72 99 12/09/17 19:10 125 H 18 110/70 98 12/09/17 17:00 137 H 18 103/63 99 12/09/17 15:44 99.9 F H 141 H 18 149/66 100 12/09/17 10:24 100.0 F H 130 H 20 124/71 96 Temperature: Febrile Blood Pressure: Normal Pulse: Tachycardic Respiratory Rate: Normal Appearance: Positive for: Well-Appearing, Non-Toxic, Comfortable Pain Distress: None Mental Status: Positive for: Alert and Oriented X 3 - Systems Exam Head: Present: Atraumatic, Normocephalic Pupils: Present: PERRL Extroacular Muscles: Present: EOMI Conjunctiva: Present: Normal Mouth: Present: Moist Mucous Membranes Neck: Present: Normal Range of Motion Respiratory/Chest: Present: Clear to Auscultation, Good Air Exchange, Tender to Palpation (right lower rib anterir chest tenderness). No: Respiratory Distress , Accessory Muscle Use Cardiovascular: Present: Regular Rate and Rhythm, Normal S1, S2. No: Murmurs Abdomen: Present: Normal Bowel Sounds. No: Tenderness, Distention, Peritoneal Signs Back: Present: Normal Inspection. No: Midline Tenderness, Paraspinal Tenderness Upper Extremity: Present: Normal Inspection. No: Cyanosis, Edema Lower Extremity: Present: NORMAL PULSES, Normal ROM, Swelling (trace swelling on right lower leg; no swelling on left), Other (Lower extremity weakness, right greater than left). No: Edema, CALF TENDERNESS, Tenderness, Erythema, Deformity, Temperature Abnormalties Neurological: Present: GCS=15, CN II-XII Intact, Speech Normal. No: Motor Func Grossly Intact (4/5 on left and 3/5 on right) Skin: Present: Warm, Dry, Normal Color. No: Rashes Psychiatric: Present: Alert, Oriented x 3, Normal Insight, Normal Concentration Medical Decision Making ED Course and Treatment: 12/09/17 12:37 Impression: A 27 year old female with worsening cough. Patient notes 1 episode of coughing up a blood and right lower rib pain. Patient also reports chronic bilateral leg numbness/weakness. Differential Diagnosis included but are not limited to: Pneumonia vs Viral Syndrome vs Chest wall MSK; Leg Weakness chronic Plan: -- Chest CT -- Chest xray -- EKG -- Labs -- Blood and Urine culture -- Urinalysis -- Rapid flu -- Tylenol -- Reassess and disposition Progress Notes: Report Date : 12/09/2017 15:15:42 PROCEDURE: CT Chest without contrast Dictator : Arianna Weems MD IMPRESSION: Findings are compatible with pneumonia in the posterior right lower lobe. No pleural effusion. Follow-up after medical management is recommended to ensure complete resolution. 12/09/17 15:40 Reviewed labs and imaging with patient, who expresses understanding. Patient reports feeling anxious, will order Ativan. She said the last time she was in the hospital she thought she was tachycardic because of her anxiety. Report Date : 12/09/2017 16:48:08 PROCEDURE: CHEST RADIOGRAPH, 1 VIEW Dictator : Arianna Weems MD IMPRESSION: Right lower lobe pneumonia. Follow-up to resolution is advised 12/09/17 18:30 EKG shows sinus tachycardia at 137 BPM with T-wave inversions in V4-V6 which is a change from previous EKGs 11/11/18 and 09/01/16. Interpreted by me. 12/09/17 19:20 Patient continues to be tachy at 125 bpm despite Ativan PO. Considering the hemoptysis may not be from PNA, will consider PE. Explained to patient that a CTA is indicated and she agreed to repeat CT despite further radiation. LE doppler ordered. 12/09/17 21:11 Spoke with organic extractions technician, reports positive for DVT on right. 12/09/17 22:[address] Berg, accepts admission to his service. He will f/u CT results. Heparin drip started on actual weights. Patient could not tolerate CT because of pain to her right ribs while laying down. Morphine IV ordered and will repeat attempt at CT. Oxy sat 100% on RA and pt denies CP and SOB. Patient is stable for Telemetry. - Critical Care Critical Care Minutes: 60 minutes - Lab Interpretations Lab Results: 12/09/17 14:45 12/09/17 17:00 Lab Results 12/09/17 19:50: pO2 39, VBG pH 7.39, VBG pCO2 46.0, VBG HCO3 27.8, VBG Total CO2 29.2 H, VBG O2 Sat (Calc) 74.8 H, VBG Base Excess 2.2 H, VBG Potassium 4.2, Sodium 139.0, Chloride 107.0, Glucose 107 H, Lactate 1.1, FiO2 21.0, Venous Blood Potassium 4.2 12/09/17 17:00: Sodium 141, Chloride 105, Potassium 4.1, Carbon Dioxide 25, Anion Gap 15, BUN 15, Creatinine 0.8, Est GFR ( Amer) > 60, Est GFR (Non- Af Amer) > 60, Random Glucose 95, Calcium 10.0, Total Bilirubin 0.7, AST 43 H, ALT 65 H, Alkaline Phosphatase 82, Total Protein 7.6, Albumin 4.2, Globulin 3.4 , Albumin/Globulin Ratio 1.2, Lipase 99 12/09/17 14:45: Influenza Typ A,B (EIA) Negative for flu a/b 12/09/17 14:45: pO2 42, VBG pH 7.36, VBG pCO2 46.0, VBG HCO3 26.0, VBG Total CO2 27.4, VBG O2 Sat (Calc) 76.0 H, VBG Base Excess 0.1, VBG Potassium 4.9, Sodium 143.0, Chloride 108.0 H, Glucose 98, Lactate 2.0, FiO2 21.0, Venous Blood Potassium 4.9 12/09/17 14:45: WBC 11.8 H, RBC 3.09 L, Hgb 11.4 L, Hct 35.0 L, MCV 113.3 H, MCH 36.9 H, MCHC 32.6, RDW 14.1, Plt Count 272, MPV 9.3, Gran % 77.7 H, Lymph % (Auto) 15.7 L, [place] % (Auto) 6.3 H, Eos % (Auto) 0.2 L, Baso % (Auto) 0.1, Gran # 9.16 H, Lymph # 1.9, [place] # 0.7 H, Eos # 0.0, Baso # 0.01 12/09/17 13:42: Urine Color Yellow, Urine Appearance Turbid, Urine pH 5.5, Ur Specific [place] >= 1.030, Urine Protein 100 H, Urine Glucose (UA) Negative, Urine Ketones Negative, Urine Blood Large H, Urine Nitrate Negative, Urine Bilirubin Negative, Urine Urobilinogen 1.0 H, Ur Leukocyte Esterase Negative, Urine RBC 10 - 15, Urine WBC 0 - 2, Ur Epithelial Cells 6 - 8, Urine Bacteria Few I have reviewed the lab results: Yes - RAD Interpretation Radiology Orders: 12/09/17 12:42 CHEST ONE VIEW [RAD] Stat 12/09/17 13:21 CHEST W/O CONTRAST [CT] Stat 12/09/17 19:08 ANGIO CHEST PE PROTOCOL [CT] Stat DUPLEX LOWER EXTRM VEIN BILAT [US] Stat - Medication Orders Current Medication Orders: Discontinued Medications Acetaminophen (Tylenol 325mg Tab) 975 mg PO STAT STA Stop: 12/09/17 12:43 Last Admin: 12/09/17 15:23 Dose: 975 mg MAR Pain/Vitals Document 12/09/17 15:23 OCS (Rec: 12/09/17 15:[address] [facility]-[id number]) Pain Reassessment Is This A Pain ReAssessment? Yes Sleep Is patient sleeping during reassessment? No Presence of Pain Presence of Pain Yes Location Left, Right or Bilateral Bilateral Pain Location Body Site Back Description Constant Intensity 7 Scale Used Numeric Aggravating Factors ADL's Lorazepam (Ativan) 1 mg PO ONCE ONE PRN Reason: Protocol Stop: 12/09/17 16:15 Last Admin: 12/09/17 17:35 Dose: 1 mg Morphine Sulfate (Morphine) 4 mg IVP STAT STA Stop: 12/09/17 21:59 - Scribe Statement The provider has reviewed the documentation as recorded by the Jamieibhusam Manning Provider Scribe Attestation: All medical record entries made by the Scribe were at my direction and personally dictated by me. I have reviewed the chart and agree that the record accurately reflects my personal performance of the history, physical exam, medical decision making, and the department course for this patient. I have also personally directed, reviewed, and agree with the discharge instructions and disposition. Disposition/Present on Arrival - Present on Arrival Any Indicators Present on Arrival: No History of DVT/PE: No History of Uncontrolled Diabetes: No Urinary Catheter: No History of Decub. Ulcer: No History Surgical Site Infection Following: None - Disposition Have Diagnosis and Disposition been Completed?: Yes Diagnosis: Pneumonia, Leg weakness, DVT (deep venous thrombosis) Disposition: HOSPITALIZED Disposition Time: 18:16 Patient Plan: Admission Patient Problems: Current Active Problems Problem Status Onset DVT (deep venous thrombosis) Acute Leg weakness Acute Pneumonia Acute Condition: GUARDED Additional Instructions: Ms Perez, thank you for letting us take care of you today. Your provider was Dr. Bullock. You were treated for Pneumonia; Leg Weakness. The emergency medical care you received today was directed at your acute symptoms. If you were prescribed any medication, please fill it and take as directed. It may take several days for your symptoms to resolve. Return to the Emergency Department if your symptoms worsen, do not improve, or if you have any other problems. Please contact your doctor or call one of the physicians/clinics you have been referred to that are listed on the Patient Visit Information form that is included in your discharge packet. Bring any paperwork you were given at discharge with you along with any medications you are taking to your follow up visit. Our treatment cannot replace ongoing medical care by a primary care provider (PCP) outside of the emergency department. Thank you for allowing the [facility] team to be part of your care today. If you had an X-Ray or CT scan: A Radiologist will review the ED reading if any change in treatment is needed we will contact you. If you had a blood, urine, or wound culture: It will take several days for the results, if any change in treatment is needed we will contact you. If you had an STI test: It will take 48 hours for the results. Please call after 1 week if you have not heard back. Referrals: [facility] [Outside] - Follow up with primary Susan Dexter MD [Primary Care Provider] - Follow up with primary Forms: [employer] ([place])
[2017-12-09 13:57] LABS: PH,URINE 5.5 (4.7-8.0); URINE APPEARANCE TURBID (CLEAR); URINE BILIRUBIN NEGATIVE (NEGATIVE); URINE BLOOD LARGE (NEGATIVE); URINE COLOR YELLOW (YELLOW); URINE GLUCOSE (UA) NEGATIVE (NEGATIVE); URINE LEUKOCYTE ESTERASE NEGATIVE Leu/uL (NEGATIVE); URINE NITRATE NEGATIVE (NEGATIVE); URINE PROTEIN 100 mg/dL (<30 mg/dL)
[2017-12-09 14:03] LABS: URINE BACTERIA FEW (NEG); URINE WBC 0 - 2 /hpf (0-6)
[2017-12-09 14:55] LABS: VENOUS BLOOD GAS BASE EXCESS 0.1 mmol/L (0.0-2.0); VENOUS BLOOD GAS PO2 42 mm/Hg (30-55); VENOUS BLOOD PH 7.36 (7.32-7.43)
[2017-12-09 15:14] LABS: BASO # 0.01 K/mm3 (0.0-2.0); BASO % 0.1 % (0.0-3.0); EOS % 0.2 % (1.5-5.0); GRAN # 9.16 (1.4-6.5); GRAN % 77.7 % (50.0-68.0); HEMOGLOBIN 11.4 g/dL (12.0-16.0); LYMPH # 1.9 (1.2-3.4); LYMPH % 15.7 % (22.0-35.0); MEAN CELL VOLUME 113.3 fl (80.0-105.0); MEAN CORPUSCULAR HEMOGLOBIN 36.9 pg (25.0-35.0); MEAN CORPUSCULAR HGB CONC 32.6 g/dl (31.0-37.0); MEAN PLATELET VOLUME 9.3 fl (7.0-11.0); MONO # 0.7 (0.1-0.6); MONO % 6.3 % (1.0-6.0); RBC 3.09 10^6/uL (3.5-6.1); RED CELL DISTRIBUTION WIDTH 14.1 % (11.5-14.5); WHITE BLOOD COUNT 11.8 10^3/ul (4.5-11.0)
--- NOTE | 2017-12-09 15:17 | CT ---
PROCEDURE: CT Chest without contrast HISTORY: Hemoptysis COMPARISON: Plain radiographs from 12/07/2017 TECHNIQUE: Contiguous axial images were obtained through the chest without intravenous contrast enhancement. Sagittal and coronal reconstructions were performed. Radiation dose (DLP): 396.48 mGy-cm. This CT exam was performed using one or more of the following dose reduction techniques: Automated exposure control, adjustment of the mA and/or kV according to patient size, and/or use of iterative reconstruction technique. FINDINGS: LUNGS: The lungs are well inflated. There is confluent airspace disease in the posterior right lower lobe. There is also discoid atelectasis in the lateral basal segment of the left lower lobe. The left lung is clear. There are no endobronchial lesions. MEDIASTINUM: The aorta is normal in caliber. The heart is normal in size. No pericardial effusion. No bulky mediastinal lymphadenopathy. PLEURA: No pleural fluid. No pneumothorax. BONES: No fracture. No destructive lesion. Within normal limits for the patient's age. UPPER ABDOMEN: Grossly unremarkable. OTHER FINDINGS: None. IMPRESSION: Findings are compatible with pneumonia in the posterior right lower lobe. No pleural effusion. Follow-up after medical management is recommended to ensure complete resolution.
--- NOTE | 2017-12-09 16:49 | RAD ---
PROCEDURE: CHEST RADIOGRAPH, 1 VIEW HISTORY: cough r/o pna COMPARISON: 12/07/2017 FINDINGS: LUNGS: The lungs are well inflated. There is confluent airspace disease in the right lower lobe. PLEURA: No pneumothorax or pleural fluid seen. CARDIOVASCULAR: Normal. OSSEOUS STRUCTURES: No significant abnormalities. VISUALIZED UPPER ABDOMEN: Normal. OTHER FINDINGS: None. IMPRESSION: Right lower lobe pneumonia. Follow-up to resolution is advised
[2017-12-09 17:38] LABS: ALB/GLOB RATIO 1.2 (1.1-1.8); ALBUMIN 4.2 g/dL (3.0-4.8); ALT/SGPT 65 U/L (7-56); AST/SGOT 43 U/L (14-36); BLOOD UREA NITROGEN 15 mg/dL (7-21); GFR AFRICAN-AMERICAN > 60; GFR NON-AFRICAN AMERICAN > 60; LIPASE 99 U/L (23-300)
--- NOTE | 2017-12-09 17:57 | CARD ---
APPROVED REPORT EKG Measurement Heart [id number] NC 104P [id number] <Conclusion> Sinus tachycardia with short NC T wave abnormality, consider lateral ischemia Abnormal ECG
[2017-12-09 20:07] LABS: VENOUS BLOOD GAS BASE EXCESS 2.2 mmol/L (0.0-2.0); VENOUS BLOOD GAS PO2 39 mm/Hg (30-55); VENOUS BLOOD PH 7.39 (7.32-7.43)
[2017-12-09] MEDS ORDERED: Iodixanol 320 MG/ML 100 ML BOTTLE IV ONE (20:25)
[2017-12-09] MEDS ORDERED: Morphine 4 mg/ml ISec IVP STA (21:58)
--- NOTE | 2017-12-09 22:41 | CP.PCM.HP ---
<Christian Gonzalez - Last Filed: 12/09/17 23:10> History of Present Illness - History of Present Illness History of Present Illness: CC: Cough with hemoptysis Subjective: HPI: Patient is a 27 year old female with past medical history of ovarian cysts, right patellar hair line fracture, community acquired pneumonia who presents to the emergency department for evaluation and treatment of cough and hemoptysis. States that she experienced cough with red tinged sputum. She was concerned and was brought in by EMS. Admits to swelling in her right lower extremity. Also admits to baseline difficulty ambulating due to sacral pain but is able to walk with assistance. Admits to baseline abdominal discomfort which she believes is secondary to not experiencing a bowel movement in several days. Admits to right lateral wall rib discomfort that radiates to the right side of her back. Denies provoking events. Patient denies intractable headache, fever, chills, dizziness , ringing in the ears, cough, shortness of breath, nausea, vomiting, and diarrhea. ROS: 12 point review of systems negative except as indicated in HPI PMHx: ovarian cysts, right patellar hair line fracture PSHx: denies Family Hx: mother- htn, hpl, pancreatic cancer Social Hx: denies ETOH use, quit tobacco use 1 year ago, smoked for 2-3 years 5 cigs/day, denies illicit drug use Medications: Please see medication reconciliation PMD: Dr. Susan Sanchez located in [facility]: [facility] [place] Physical Examination: - Constitutional Appears: Non-toxic, No Acute Distress - Head Exam Head Exam: atraumatic, normocephalic - Eye Exam Eye Exam: Normal appearance, PERRL. absent: Scleral icterus - ENT Exam ENT Exam: Mucous Membranes Moist - Neck Exam Neck exam: Normal Inspection - Respiratory Exam Respiratory Exam: Normal Breathing Pattern, decreased breath sounds Right lower lobe - Cardiovascular Exam Cardiovascular Exam: tachycardia, +S1, +S2. absent: Gallop, JVD - GI/Abdominal Exam GI & Abdominal Exam: Normal Bowel Sounds, absent: Distended, Guarding, Pulsatile Mass, Rebound, Rigid - Extremities Exam Extremities exam: calf tenderness in right lower extremity; trace edema in right lower extremity - Neurological Exam Neurological exam: Patient is awake, alert, responds to verbal stimuli, answers questions appropriately, follows commands, and moves extremities past midline, CN II-XII intact, muscle strength 5/5 throughout, sensation intact to touch throughout - Psychiatric Exam Psychiatric exam: anxious - Skin Skin Exam: warm and dry Assessment and Plan: Patient is a 27 year old female with past medical history of ovarian cysts who was admitted for evaluation and treatment of cough with blood tinged sputum production. Cough/Hemoptysis - Extremity ultrasound- as per ED physician, DVT is seen in right LE - CT angio ordered by ED and pending at the time of admission - heparin bolus given and heparin drip to be started in ED - suspected unprovoked PE- cognos report developer consulted- appreciate recommendations EKG Abnormality - sinus tachycardia, t wave abnormality Qtc- 564ms - cardiac isoenzymes stat and trended - aspirin started Back Pain; Rib Pain - 12/08/[address]- No evidence of an acute thoracic spine abnormality - 12/08/[address]- No evidence of an acute abnormality in the lumbar spine; Right lower lobe infiltrate and consolidation with trace right pleural effusion suspicious for right lower lobe pneumonia. - high risk fall precautions - PT/OT evaluation and treatment - ibuprofen prn pain Community Acquired Pneumonia; Sepsis - blood cultures completed recent hospitalization - IVF LR @ 77 - atypicals- legionella, mycoplasma, strep ordered in previous visit - c/w doxycycline - encourage incentive spirometer use Abdominal Discomfort; Constipation - start miralax - c/w colace 100 mg BID Elevated LFTs - avoid hepatotoxins - monitor closely via CMP Prophylaxis - DVT ppx- patient has DVT in right LE- heparin bolus given in ED and heparin drip started - GI ppx- not indicated Patient case discussed with and plan approved by attending physician. Present on Admission - Present on Admission Any Indicators Present on Admission: No Past Patient History - Infectious Disease Hx of Infectious Diseases: None - Tetanus Immunizations Tetanus Immunization: Unknown - Past Social History Smoking Status: Never Smoked - CARDIAC Hx Cardiac Disorders: No - PULMONARY Hx Respiratory Disorders: Yes Hx Pneumonia: Yes - NEUROLOGICAL Hx Neurological Disorder: No - HEENT Hx HEENT Problems: No - RENAL Hx Chronic Kidney Disease: No - ENDOCRINE/METABOLIC Hx Endocrine Disorders: No - HEMATOLOGICAL/ONCOLOGICAL Hx Blood Disorders: No - INTEGUMENTARY Hx Dermatological Problems: No - MUSCULOSKELETAL/RHEUMATOLOGICAL Hx Musculoskeletal Disorders: Yes Hx Back Pain: Yes - GASTROINTESTINAL Hx Gastrointestinal Disorders: No - GENITOURINARY/GYNECOLOGICAL Hx Genitourinary Disorders: Yes Other/Comment: OVARIAN CYST - PSYCHIATRIC Hx Psychophysiologic Disorder: Yes Hx Anxiety: Yes Hx Depression: No Hx Emotional Abuse: No Hx Physical Abuse: No Hx Substance Use: No - SURGICAL HISTORY Hx Cardiac Catheterization: No Hx Coronary Stent: No - ANESTHESIA Hx Anesthesia: No Hx Anesthesia Reactions: No Hx Malignant Hyperthermia: No Meds Allergies/Adverse Reactions: Allergies Allergy/AdvReac Type Severity Reaction Status Date / Time No Known Allergies Allergy Verified 12/09/17 10:26 Results - Vital Signs Recent Vital Signs: Last Vital Signs Temp 99.9 F H 12/09/17 15:44 Pulse 121 H 12/09/17 21:44 Resp 18 12/09/17 21:44 BP 106/72 12/09/17 21:44 Pulse Ox 99 12/09/17 21:44 - Labs Result Diagrams: 12/09/17 14:45 12/09/17 17:00 <Georges Berg MD - Last Filed: 12/10/17 06:00> Results - Vital Signs Recent Vital Signs: Last Vital Signs Temp 100.8 F H 12/10/17 01:19 Pulse 130 H 12/10/17 02:00 Resp 20 12/10/17 01:19 BP 118/80 12/10/17 01:19 Pulse Ox 96 12/09/17 23:17 - Labs Result Diagrams: 12/09/17 14:45 12/09/17 17:00 Labs: Laboratory Results - last 24 hr 12/10/17 12/10/17 00:30 00:30 PT 16.3 H INR 1.42 H APTT 34.5 Lactate Dehydrogenase 828 H Total Creatine Kinase 46 Troponin I < 0.01 Attending/Attestation - Attestation I have personally seen and examined this patient.: Yes I have fully participated in the care of the patient.: Yes I have reviewed all pertinent clinical information: Yes Notes (Text): -I agree with the above H&P completed by the resident physician with the following additions and/or changes: -The patient is a 27 year old woman with a history of ovarian cysts who was recently admitted [place] [facility] [place] days ago for treatment of community acquired pneumonia. She was subsequently discharged home yesterday (12/09/17) on oral antibiotics in stable condition. Since her discharge she developed new onset cough with blood-tinged sputum, right lower extremity pain and swelling and worsening sacral pain. As a result of these new symptoms, she returns to the [facility] ED today, where she was found to have persistent sinus tachycardia ([id number]). Lower extremity Doppler U/S done in the ED confirmed acute DVT and the patient was admitted late this evening to the telemetry latif on therapeutic Heparin drip. Shortly upon arrival to the telemetry latif (at approx 1:30am), the results of her CT-chest angiogram (also done earlier in the ED) returned, showing a large saddle emboli. As a result of these new CT findings, she was quickly upgraded to the ICU early this morning (at approx. 2am) for closer monitoring. Since arrival to the ED, she has remained hemodynamically stable with a normal respiratory rate and O2 sats. She denies any prior history of blood clots, family history of blood clots, OCP use or recent history of prolonged immobility. Of note, in the ED, she spiked multiple temperatures (as high as 102.1), which may be due to her community acquired pneumonia (and/or acute saddle embolus). As a result, she was started on empiric IV Azithromycin and Ceftriaxone (instead continuing the oral Doxycycline she had recently been taking). Because her clots appear to be unprovoked, a hematology consult has been placed for further evaluation. In addition, a 2D-echo has been ordered to evaluate for RV strain.
[2017-12-09] MEDS: Heparin25000 units/250ml 1/2NS 25,000 UNITS/250 ML BAG IV PRN (23:03)
[2017-12-09] MEDS ORDERED: Lactated Ringer's 1,000 ML IV SCH (23:45)
[2017-12-09] MEDS ORDERED: POLYETHYLENE GLYCOL 3350 17 GM/Dose PACKET PO STA (23:46)
[2017-12-10 00:51] LABS: INR 1.42 (0.93-1.08); PARTIAL THROMBOPLASTIN TIME 34.5 Seconds (25.1-36.5); PROTHROMBIN TIME 16.3 SECONDS (9.4-12.5)
[2017-12-10 01:12] LABS: TROPONIN I < 0.01 ng/mL
--- NOTE | 2017-12-10 01:23 | CT ---
EXAM: CT Angiography Chest With Intravenous Contrast EXAM DATE/TIME: 12/09/2017 7:08 PM CLINICAL HISTORY: 27 years old, female; Pain; Other: Back pain; Additional info: Hemoptysis R/O pe TECHNIQUE: Axial computed tomographic angiography images of the chest with intravenous contrast using pulmonary embolism protocol. All CT scans at this facility use one or more dose reduction techniques, viz.: automated exposure control; ma/kV adjustment per patient size (including targeted exams where dose is matched to indication; i.e. head); or iterative reconstruction technique. MIP reconstructed images were created and reviewed. Coronal and sagittal reformatted images were created and reviewed. CONTRAST: 94 mL of [id number] administered intravenously. COMPARISON: CT - CHEST W/O CONTRAST 2017-12-09 14:51 FINDINGS: Artifacts: Motion artifact degrades image quality. Heart, aorta and Pulmonary arteries: The heart is enlarged.There is fluid in pericardial recesses.There is no aneurysm. Main pulmonary artery is dilated 3.37 m in diameter. There is a saddle embolus. Embolus extends into right lower lobe pulmonary arteries with occlusion. There is extension into right middle lobe vessels. Motion limits evaluation of right upper lobe vessels. There is extension into the left upper lobe pulmonary arteries. Lungs and pleural spaces: Trachea and main bronchi are patent.There is no pneumothorax. There are patchy groundglass opacities in the right upper lobe. There is minimal atelectasis and scarring in the right middle lobe. There is a moderate right pleural effusion. There is airspace disease at the right base. There is minimal dependent atelectasis in the left lung. There is no left effusion. Mediastinum: The esophagus is unremarkable. There are no pathologically enlarged mediastinal nodes. Thyroid: Thyroid is unremarkable Bones/joints: There are no acute osseous abnormalities. Soft tissues: unremarkable Upper abdomen: There are no acute abnormalities in the visualized portion of the abdomen. IMPRESSION: Saddle embolus with extension primarily into right lower, middle and left upper lobe pulmonary arteries; interval development of a small right effusion with increasing right lower lobe airspace disease Additional nonemergent findings as described above.
[2017-12-10] MEDS: Sodium Chloride 0.9% 1,000 ML IV SCH ×3 (01:46→18:12)
[2017-12-10] MEDS: Pantoprazole 40 mg EC Tab PO SCH (05:40)
[2017-12-10 07:09] LABS: TROPONIN I < 0.01 ng/mL
[2017-12-10 07:18] LABS: BASO # 0.02 K/mm3 (0.0-2.0); BASO % 0.2 % (0.0-3.0); EOS # 0.1 (0.0-0.7); EOS % 0.5 % (1.5-5.0); GRAN # 7.44 (1.4-6.5); GRAN % 67.3 % (50.0-68.0); HEMOGLOBIN 10.8 g/dL (12.0-16.0); LYMPH # 2.4 (1.2-3.4); LYMPH % 22.1 % (22.0-35.0); MEAN CELL VOLUME 112.1 fl (80.0-105.0); MEAN CORPUSCULAR HEMOGLOBIN 36.4 pg (25.0-35.0); MEAN CORPUSCULAR HGB CONC 32.4 g/dl (31.0-37.0); MONO # 1.1 (0.1-0.6); MONO % 9.9 % (1.0-6.0); RBC 2.97 10^6/uL (3.5-6.1); RED CELL DISTRIBUTION WIDTH 13.8 % (11.5-14.5); WHITE BLOOD COUNT 11.1 10^3/ul (4.5-11.0)
[2017-12-10 07:19] LABS: ALB/GLOB RATIO 1.2 (1.1-1.8); ALBUMIN 3.7 g/dL (3.0-4.8); ALT/SGPT 80 U/L (7-56); AST/SGOT 72 U/L (14-36); BLOOD UREA NITROGEN 14 mg/dL (7-21); CALCIUM 9.5 mg/dL (8.4-10.5); GFR AFRICAN-AMERICAN > 60; GFR NON-AFRICAN AMERICAN > 60; MAGNESIUM 2.2 mg/dL (1.7-2.2)
--- NOTE | 2017-12-10 07:22 | CP.PCM.CON ---
<Mak Hernández - Last Filed: 12/10/17 10:22> History of Present Illness - History of Present Illness History of Present Illness: Critical Care Progress note- Dr. Medina 27F pmhx of ovarian cysts, r. patellar hair line fracture, recently diagnosed community acquired pneumonia who was intially admitted on 12/08/17 for unprovoked back pain discharged on doxy, and currently presents with cough and hemoptysis for 1 day. Admits to being exposed to sick contact with pneumonia. patient states increased swelling and decreased ability to ambulate due to pain. During work up was found to have saddle embolus. Patient was then brought to the ICU and started on heparin drip. During encounter patient denies long travel or extended period of time, any physical traumatic events, or known history of hypercoagulable disease. During the night, patient had two BM. Deneis current: fever, chills, loss of consciousness, tinnitus, nausea, vomiting , diarrhea, PMH: ovarian cysts, R patellar hair line fracture, anxiety PSH: denies ALL: NKDA Socialhx: former tobacco quit 1 year ago 3cigs/day for 5 years, deneis ETOh, recreational drug use FamilyHx: mother- pancreatic cancer, hx of sickle cell, father side unknown Review of Systems - Review of Systems All systems: reviewed and no additional remarkable complaints except - Constitutional Constitutional: As Per HPI Past Patient History - Infectious Disease Hx of Infectious Diseases: None - Tetanus Immunizations Tetanus Immunization: Unknown - Past Social History Smoking Status: Former Smoker - CARDIAC Hx Cardiac Disorders: No - PULMONARY Hx Respiratory Disorders: Yes Hx Pneumonia: Yes - NEUROLOGICAL Hx Neurological Disorder: Yes (numbness to lower extremities) - HEENT Hx HEENT Problems: No - RENAL Hx Chronic Kidney Disease: No - ENDOCRINE/METABOLIC Hx Endocrine Disorders: No - HEMATOLOGICAL/ONCOLOGICAL Hx Blood Disorders: No - INTEGUMENTARY Hx Dermatological Problems: No - MUSCULOSKELETAL/RHEUMATOLOGICAL Hx Musculoskeletal Disorders: Yes Hx Falls: Yes (In ER 12/07/17) - GASTROINTESTINAL Hx Gastrointestinal Disorders: No - GENITOURINARY/GYNECOLOGICAL Hx Genitourinary Disorders: Yes Other/Comment: OVARIAN CYST - PSYCHIATRIC Hx Psychophysiologic Disorder: Yes Hx Anxiety: Yes Hx Substance Use: No - SURGICAL HISTORY Hx Surgeries: Yes ([place] tooth removal) Hx Cardiac Catheterization: No Hx Coronary Stent: No - ANESTHESIA Hx Anesthesia: No Hx Anesthesia Reactions: No Hx Malignant Hyperthermia: No Meds Allergies/Adverse Reactions: Allergies Allergy/AdvReac Type Severity Reaction Status Date / Time No Known Allergies Allergy Verified 12/09/17 10:26 - Medications Medications: Current Medications Acetaminophen (Tylenol 325mg Tab) 650 mg PO Q4H PRN PRN Reason: Fever >100.4 F Aspirin (Ecotrin) 81 mg PO DAILY [facility] Docusate Sodium (Colace) 100 mg PO BID [facility] Heparin Sodium/Sodium Chloride (Heparin 57974 Units/250ml 1/2 Normal Saline) 25 ,000 units in 250 mls @ 16.901 mls/hr IV .[id number] PRN; Protocol; 18 UNITS/KG/HR PRN Reason: ADJUST RATE PER PROTOCOL Last Admin: 12/09/17 23:03 Dose: 18 units/kg/hr, 16.901 mls/hr Ceftriaxone Sodium (Rocephin 1 Gram Ivpb) 1 gm in 100 mls @ 100 mls/hr IVPB DAILY [facility] PRN Reason: Protocol Azithromycin (Zithromax 500mg In Ns) 500 mg in 250 mls @ 167 mls/hr IVPB DAILY [facility] PRN Reason: Protocol Sodium Chloride (Sodium Chloride 0.9%) 1,000 mls @ 125 mls/hr IV .Q8H [facility] Last Admin: 12/10/17 01:46 Dose: 125 mls/hr Ibuprofen (Motrin Tab) 600 mg PO Q6H PRN PRN Reason: Pain, moderate (4-7) Pantoprazole Sodium (Protonix Ec Tab) 40 mg PO 0600 [facility] Last Admin: 12/10/17 05:40 Dose: 40 mg Polyethylene Glycol (Miralax) 17 gm PO DAILY [facility] Physical Exam - Constitutional Appears: Non-toxic, No Acute Distress - Head Exam Head Exam: ATRAUMATIC - Eye Exam Eye Exam: EOMI. absent: Scleral icterus - ENT Exam ENT Exam: Mucous Membranes Moist - Neck Exam Neck exam: Positive for: Normal Inspection - Respiratory Exam Respiratory Exam: NORMAL BREATHING PATTERN. absent: Accessory Muscle Use, Respiratory Distress - Cardiovascular Exam Cardiovascular Exam: Tachycardia, +S1, +S2. absent: Bradycardia - GI/Abdominal Exam GI & Abdominal Exam: Distended, Soft. absent: Firm, Guarding, Rigid, Tenderness - Extremities Exam Extremities exam: Positive for: normal inspection. Negative for: calf tenderness - Back Exam Back exam: absent: CVA tenderness (L), CVA tenderness (R) - Neurological Exam Neurological exam: Alert, Oriented x3 - Skin Skin Exam: Dry, Intact, Warm Results - Vital Signs Recent Vital Signs: Last Vital Signs Temp 100.8 F H 12/10/17 01:19 Pulse 130 H 12/10/17 02:00 Resp 20 12/10/17 01:19 BP 118/80 12/10/17 01:19 Pulse Ox 96 12/09/17 23:17 - Labs Result Diagrams: 12/10/17 05:30 12/10/17 05:30 Labs: Laboratory Results - last 24 hr 12/10/17 12/10/17 12/10/17 00:30 00:30 05:30 PT 16.3 H INR 1.42 H APTT 34.5 Sodium 142 Potassium 4.0 Chloride 106 Carbon Dioxide 25 Anion Gap 15 BUN 14 Creatinine 0.8 Est GFR ( Amer) > 60 Est GFR (Non-Af Amer) > 60 Random Glucose 87 Calcium 9.5 Phosphorus 4.0 Magnesium 2.2 Total Bilirubin 0.8 AST 72 H D ALT 80 H Alkaline Phosphatase 77 Lactate Dehydrogenase 828 H 705 H Total Creatine Kinase 46 50 Troponin I < 0.01 < 0.01 Total Protein 6.9 Albumin 3.7 Globulin 3.2 Albumin/Globulin Ratio 1.2 12/10/17 05:30 PT INR APTT 73.8 H Sodium Potassium Chloride Carbon Dioxide Anion Gap BUN Creatinine Est GFR ( Amer) Est GFR (Non-Af Amer) Random Glucose Calcium Phosphorus Magnesium Total Bilirubin AST ALT Alkaline Phosphatase Lactate Dehydrogenase Total Creatine Kinase Troponin I Total Protein Albumin Globulin Albumin/Globulin Ratio Assessment & Plan - Assessment and Plan (Free Text) Assessment: 27F pmhx of ovarian cysts, diagnosed with unprovoked DVT with saddle embolus confirmed on CT, on heparin drip Plan: Neuro: AAOx3, responds to verbal stimuli, answers questions appropriately, moves extremities past midline Pain control PRN maintain normothermia Cardio: monitor vitals MAP > 65 sinus tachycardia 2/2 PE vs anxiety f/u ECHO for right heart strain Trops neg x 2 Pulm: Pt comfortable on room air maintain SaO2 > 92% GI: Regular Diet miralax and Colace for constipation mild transaminitis Renal/Electrolytes: Replete lytes PRN Endo: keep pt euglycemic and euvolemia Heme: DVT, saddle embolus- heparin drip and asprin workup for hypercoagulable state c/s heme onc: Dr. Mason ID: pending blood, sputum cx, PCT CAP- Zyvox, Cefepime as well as Zithromax urine Legionella Ag pening rapid flu test is negative, cannot r/o flu start Tamiflu as per ID c/s Dr. Vasquez Psych: hx of anxiety alprazolam PRN c/s Psych Dr. Martin PPX: GI- PTX DVT- Heparin drip discussed with Dr. Medina critical care attending Mak Hernández PGY1 <Nakul Medina - Last Filed: 12/10/17 12:49> Meds - Medications Medications: Current Medications Acetaminophen (Tylenol 325mg Tab) 650 mg PO Q4H PRN PRN Reason: Fever >100.4 F Alprazolam (Xanax) 0.5 mg PO TID PRN; Protocol PRN Reason: Anxiety Last Admin: 12/10/17 09:37 Dose: 0.5 mg Aspirin (Ecotrin) 81 mg PO DAILY [facility] Last Admin: 12/10/17 09:33 Dose: 81 mg Docusate Sodium (Colace) 100 mg PO BID [facility] Last Admin: 12/10/17 09:23 Dose: 100 mg Heparin Sodium/Sodium Chloride (Heparin 72026 Units/250ml 1/2 Normal Saline) 25 ,000 units in 250 mls @ 16.901 mls/hr IV .[id number] PRN; Protocol; 18 UNITS/KG/HR PRN Reason: ADJUST RATE PER PROTOCOL Last Admin: 12/09/17 23:03 Dose: 18 units/kg/hr, 16.901 mls/hr Azithromycin (Zithromax 500mg In Ns) 500 mg in 250 mls @ 167 mls/hr IVPB DAILY [facility] PRN Reason: Protocol Last Admin: 12/10/17 10:43 Dose: 167 mls/hr Sodium Chloride (Sodium Chloride 0.9%) 1,000 mls @ 125 mls/hr IV .Q8H [facility] Last Admin: 12/10/17 09:21 Dose: 125 mls/hr Cefepime HCl (Maxipime 2gm) 2 gm in 100 mls @ 100 mls/hr IVPB Q8 [facility] PRN Reason: Protocol Stop: 12/15/17 08:46 Last Admin: 12/10/17 09:25 Dose: 100 mls/hr Linezolid (Zyvox 600mg/300ml D5w) 600 mg in 300 mls @ 200 mls/hr IVPB Q12 [facility] PRN Reason: Protocol Stop: 12/17/17 10:01 Last Admin: 12/10/17 09:27 Dose: 200 mls/hr Ibuprofen (Motrin Tab) 600 mg PO Q6H PRN PRN Reason: Pain, moderate (4-7) Pantoprazole Sodium (Protonix Ec Tab) 40 mg PO 0600 [facility] Last Admin: 12/10/17 05:40 Dose: 40 mg Polyethylene Glycol (Miralax) 17 gm PO DAILY [facility] Last Admin: 12/10/17 09:25 Dose: 17 gm Results - Vital Signs Recent Vital Signs: Last Vital Signs Temp 98.8 F 12/10/17 08:00 Pulse 144 H 12/10/17 08:01 Resp 32 H 12/10/17 08:01 BP 144/67 12/10/17 08:01 Pulse Ox 100 12/10/17 08:01 - Labs Result Diagrams: 12/10/17 05:30 12/10/17 05:30 Labs: Laboratory Results - last 24 hr 12/10/17 12/10/17 12/10/17 00:30 00:30 05:30 WBC 11.1 H RBC 2.97 L Hgb 10.8 L Hct 33.3 L MCV 112.1 H MCH 36.4 H MCHC 32.4 RDW 13.8 Plt Count 258 MPV 10.0 Gran % 67.3 Lymph % (Auto) 22.1 [place] % (Auto) 9.9 H Eos % (Auto) 0.5 L Baso % (Auto) 0.2 Gran # 7.44 H Lymph # 2.4 [place] # 1.1 H Eos # 0.1 Baso # 0.02 ESR PT 16.3 H INR 1.42 H APTT 34.5 Sodium Potassium Chloride Carbon Dioxide Anion Gap BUN Creatinine Est GFR ( Amer) Est GFR (Non-Af Amer) Random Glucose Calcium Phosphorus Magnesium Total Bilirubin AST ALT Alkaline Phosphatase Lactate Dehydrogenase 828 H Total Creatine Kinase 46 Troponin I < 0.01 NT-Pro-B Natriuret Pep Total Protein Albumin Globulin Albumin/Globulin Ratio 12/10/17 12/10/17 12/10/17 05:30 05:30 05:30 WBC RBC Hgb Hct MCV MCH MCHC RDW Plt Count MPV Gran % Lymph % (Auto) [place] % (Auto) Eos % (Auto) Baso % (Auto) Gran # Lymph # [place] # Eos # Baso # ESR PT INR APTT 73.8 H Sodium 142 Potassium 4.0 Chloride 106 Carbon Dioxide 25 Anion Gap 15 BUN 14 Creatinine 0.8 Est GFR ( Amer) > 60 Est GFR (Non-Af Amer) > 60 Random Glucose 87 Calcium 9.5 Phosphorus 4.0 Magnesium 2.2 Total Bilirubin 0.8 AST 72 H D ALT 80 H Alkaline Phosphatase 77 Lactate Dehydrogenase 705 H Total Creatine Kinase 50 Troponin I < 0.01 NT-Pro-B Natriuret Pep 36.3 Total Protein 6.9 Albumin 3.7 Globulin 3.2 Albumin/Globulin Ratio 1.2 12/10/17 12/10/17 12/10/17 05:30 11:00 11:00 WBC RBC Hgb Hct MCV MCH MCHC RDW Plt Count MPV Gran % Lymph % (Auto) [place] % (Auto) Eos % (Auto) Baso % (Auto) Gran # Lymph # [place] # Eos # Baso # ESR 70 H PT INR APTT 91.1 H Sodium Potassium Chloride Carbon Dioxide Anion Gap BUN Creatinine Est GFR ( Amer) Est GFR (Non-Af Amer) Random Glucose Calcium Phosphorus Magnesium Total Bilirubin AST ALT Alkaline Phosphatase Lactate Dehydrogenase 874 H Total Creatine Kinase 145 Troponin I < 0.01 NT-Pro-B Natriuret Pep Total Protein Albumin Globulin Albumin/Globulin Ratio Attending/Attestation - Attestation I have personally seen and examined this patient.: Yes I have fully participated in the care of the patient.: Yes I have reviewed all pertinent clinical information: Yes Notes (Text): 12/10/17 12:34 27 yo with seemingly unprovoked VTE episode with both PE (saddle) and DVT. Despite large clot burden on CT chest and saddle position, BP is stable despite substantial tachycardia, no IVC plethoras, troponin x 3 and BNP are WNL, which suggests no RV strain. Formal Echo is pending. Patient reports some anxiety as well-->while feeling anxious may potentially be related to PE, labs data ( troponin x 3 neg and BNP WNL) and bedside echo observation (No IVC plethoras and no obvious RV systolic dysfunction and dilatation) makes it less likely. Xanax 0.5 mg PO given. Meanwhile, patient is on therapeutic anticoagulation with heparin. If hemodynamics remains stable will switch to DOA. Fever likely related to PE+DVT (PIOPED trial), but cant rule out infectious etiology-->will continue with empiric abx presently. ccm time 40 min
[2017-12-10] MEDS ORDERED: Sodium Chloride 0.9% 500 ML IV STA (07:38)
--- NOTE | 2017-12-10 08:40 | US ---
HISTORY: Leg pain and swelling. Evaluate for DVT PHYSICIAN(S): Aniket Rosen MD. TECHNIQUE: Duplex sonography and color-flow Doppler with graded compression were used to evaluate the deep venous systems of both lower extremities. FINDINGS: Occlusive thrombus is seen in the mid to distal right femoral vein and popliteal vein. The tibial veins are not well seen. The right common femoral vein is patent and compressible. There is no sonographic evidence of deep venous thrombosis in the visualized segments of left lower extremity. IMPRESSION: Extensive occlusive thrombus in the right femoral and popliteal veins .
[2017-12-10] MEDS: Cefepime IV 2 gm in NS 2 GM/100 ML BAG IVPB SCH ×3 (09:25→21:16)
[2017-12-10] MEDS: POLYETHYLENE GLYCOL 3350 17 GM/Dose PACKET PO SCH (09:25)
[2017-12-10] MEDS: Linezolid 600 mg in D5W 300 ml 600 MG/300 ML BAG IVPB SCH ×2 (09:27→21:17)
[2017-12-10] MEDS ORDERED: cefTRIAXone 1 gm 1 GM/100 ML BAG IVPB SCH (10:00)
--- NOTE | 2017-12-10 10:06 | CP.PCM.CON ---
History of Present Illness - History of Present Illness History of Present Illness: 27 year old female with PMH of ovarian cysts, history of fracture of right patella, history of community-acquired pneumonia, obesity with BMI 31 was admitted [facility] about 3 days ago for presumed pneumonia and was given Rocephin and Zithromax and discharged on PO doxycycline. She received a dose of IV Vancomycin but she developed redness with it. When she got home, she continued to have cough and blood-tinged sputum as well as fevers and dyspnea. In the ED, CT scan showed right lower lobe infiltrate and air bronchograms, as well as pulmonary embolism. She denies known TB contacts, born in the [place] She denies headache or dizziness, has right sided chest pain (pleuritic), no nausea or vomiting, no abdominal pain, no diarrhea, no dysuria, has some sore throat from coughing, no rhinorrhea. Infectious Diseases consult is requested to further evaluate and manage. Review of Systems - Review of Systems All systems: reviewed and no additional remarkable complaints except (as per HPI ) Past Patient History - Infectious Disease Hx of Infectious Diseases: None - Tetanus Immunizations Tetanus Immunization: Unknown - Past Social History Smoking Status: Former Smoker - CARDIAC Hx Cardiac Disorders: No - PULMONARY Hx Respiratory Disorders: Yes Hx Pneumonia: Yes - NEUROLOGICAL Hx Neurological Disorder: Yes (numbness to lower extremities) - HEENT Hx HEENT Problems: No - RENAL Hx Chronic Kidney Disease: No - ENDOCRINE/METABOLIC Hx Endocrine Disorders: No - HEMATOLOGICAL/ONCOLOGICAL Hx Blood Disorders: No - INTEGUMENTARY Hx Dermatological Problems: No - MUSCULOSKELETAL/RHEUMATOLOGICAL Hx Musculoskeletal Disorders: Yes Hx Falls: Yes (In ER 12/07/17) - GASTROINTESTINAL Hx Gastrointestinal Disorders: No - GENITOURINARY/GYNECOLOGICAL Hx Genitourinary Disorders: Yes Other/Comment: OVARIAN CYST - PSYCHIATRIC Hx Psychophysiologic Disorder: Yes Hx Anxiety: Yes Hx Substance Use: No - SURGICAL HISTORY Hx Surgeries: Yes ([place] tooth removal) Hx Cardiac Catheterization: No Hx Coronary Stent: No - ANESTHESIA Hx Anesthesia: No Hx Anesthesia Reactions: No Hx Malignant Hyperthermia: No Meds Allergies/Adverse Reactions: Allergies Allergy/AdvReac Type Severity Reaction Status Date / Time No Known Allergies Allergy Verified 12/09/17 10:26 - Medications Medications: Current Medications Acetaminophen (Tylenol 325mg Tab) 650 mg PO Q4H PRN PRN Reason: Fever >100.4 F Alprazolam (Xanax) 0.5 mg PO TID PRN; Protocol PRN Reason: Anxiety Last Admin: 12/10/17 09:37 Dose: 0.5 mg Aspirin (Ecotrin) 81 mg PO DAILY [facility] Last Admin: 12/10/17 09:33 Dose: 81 mg Docusate Sodium (Colace) 100 mg PO BID [facility] Last Admin: 12/10/17 09:23 Dose: 100 mg Heparin Sodium/Sodium Chloride (Heparin 63430 Units/250ml 1/2 Normal Saline) 25 ,000 units in 250 mls @ 16.901 mls/hr IV .[id number] PRN; Protocol; 18 UNITS/KG/HR PRN Reason: ADJUST RATE PER PROTOCOL Last Admin: 12/09/17 23:03 Dose: 18 units/kg/hr, 16.901 mls/hr Azithromycin (Zithromax 500mg In Ns) 500 mg in 250 mls @ 167 mls/hr IVPB DAILY [facility] PRN Reason: Protocol Sodium Chloride (Sodium Chloride 0.9%) 1,000 mls @ 125 mls/hr IV .Q8H [facility] Last Admin: 12/10/17 09:21 Dose: 125 mls/hr Cefepime HCl (Maxipime 2gm) 2 gm in 100 mls @ 100 mls/hr IVPB Q8 [facility] PRN Reason: Protocol Stop: 12/15/17 08:46 Last Admin: 12/10/17 09:25 Dose: 100 mls/hr Linezolid (Zyvox 600mg/300ml D5w) 600 mg in 300 mls @ 200 mls/hr IVPB Q12 [facility] PRN Reason: Protocol Stop: 12/17/17 10:01 Last Admin: 12/10/17 09:27 Dose: 200 mls/hr Ibuprofen (Motrin Tab) 600 mg PO Q6H PRN PRN Reason: Pain, moderate (4-7) Pantoprazole Sodium (Protonix Ec Tab) 40 mg PO 0600 [facility] Last Admin: 12/10/17 05:40 Dose: 40 mg Polyethylene Glycol (Miralax) 17 gm PO DAILY [facility] Last Admin: 12/10/17 09:25 Dose: 17 gm Physical Exam - Constitutional Appears: Other (tachycardic and tachypneic) - Head Exam Head Exam: NORMAL INSPECTION - ENT Exam ENT Exam: Mucous Membranes Moist - Neck Exam Neck exam: Negative for: Lymphadenopathy, Meningismus - Respiratory Exam Respiratory Exam: Decreased Breath Sounds - Cardiovascular Exam Cardiovascular Exam: +S1, +S2 - GI/Abdominal Exam GI & Abdominal Exam: Soft. absent: Tenderness Results - Vital Signs Recent Vital Signs: Last Vital Signs Temp 98.8 F 12/10/17 08:00 Pulse 144 H 12/10/17 08:01 Resp 32 H 12/10/17 08:01 BP 144/67 12/10/17 08:01 Pulse Ox 100 12/10/17 08:01 - Labs Result Diagrams: 12/10/17 05:30 12/10/17 05:30 Labs: Laboratory Results - last 24 hr 12/10/17 12/10/17 12/10/17 00:30 00:30 05:30 WBC 11.1 H RBC 2.97 L Hgb 10.8 L Hct 33.3 L MCV 112.1 H MCH 36.4 H MCHC 32.4 RDW 13.8 Plt Count 258 MPV 10.0 Gran % 67.3 Lymph % (Auto) 22.1 [place] % (Auto) 9.9 H Eos % (Auto) 0.5 L Baso % (Auto) 0.2 Gran # 7.44 H Lymph # 2.4 [place] # 1.1 H Eos # 0.1 Baso # 0.02 PT 16.3 H INR 1.42 H APTT 34.5 Sodium Potassium Chloride Carbon Dioxide Anion Gap BUN Creatinine Est GFR ( Amer) Est GFR (Non-Af Amer) Random Glucose Calcium Phosphorus Magnesium Total Bilirubin AST ALT Alkaline Phosphatase Lactate Dehydrogenase 828 H Total Creatine Kinase 46 Troponin I < 0.01 NT-Pro-B Natriuret Pep Total Protein Albumin Globulin Albumin/Globulin Ratio 12/10/17 12/10/17 12/10/17 05:30 05:30 05:30 WBC RBC Hgb Hct MCV MCH MCHC RDW Plt Count MPV Gran % Lymph % (Auto) [place] % (Auto) Eos % (Auto) Baso % (Auto) Gran # Lymph # [place] # Eos # Baso # PT INR APTT 73.8 H Sodium 142 Potassium 4.0 Chloride 106 Carbon Dioxide 25 Anion Gap 15 BUN 14 Creatinine 0.8 Est GFR ( Amer) > 60 Est GFR (Non-Af Amer) > 60 Random Glucose 87 Calcium 9.5 Phosphorus 4.0 Magnesium 2.2 Total Bilirubin 0.8 AST 72 H D ALT 80 H Alkaline Phosphatase 77 Lactate Dehydrogenase 705 H Total Creatine Kinase 50 Troponin I < 0.01 NT-Pro-B Natriuret Pep 36.3 Total Protein 6.9 Albumin 3.7 Globulin 3.2 Albumin/Globulin Ratio 1.2 Assessment & Plan - Assessment and Plan (Free Text) Plan: Assessment Severe sepsis with hypoxic respiratory failure due to right sided HCAP on top of right sided pulmonary emboli ovarian cysts history of fracture of right patella history of community-acquired pneumonia obesity with BMI 31 Plan Since the patient had been recently admitted for at least 2 days, will start the patient on Zyvox and Cefepime as well as Zithromax pending blood, sputum cx , PCT, urine Legionella Ag; rapid flu test is negative but cannot rule out Influenza - will also start Tamiflu follow up hypercoagulable work up; patient is on Heparin Follow up HIV test will monitor clinically
[2017-12-10] MEDS: Azithromycin 500MG/NS 250ml 500 MG/250 ML BAG IVPB SCH (10:43)
[2017-12-10 11:36] LABS: TROPONIN I < 0.01 ng/mL
--- NOTE | 2017-12-10 12:45 | CON ---
DATE: 12/10/2017 HISTORY OF PRESENT ILLNESS: This is a 27-year-old lady without significant past medical history who presented yesterday with right-sided pleuritic chest pain associated with some shortness of breath. Subsequently, she was found to have right lower lobe infiltrate. She did have some bloody streaks in her sputum. She also had an episode of fever. No nausea, no vomiting or diarrhea, no constipation. CAT scan with IV contrast revealed pulmonary embolism (saddle). The patient was started on therapeutic anticoagulation. Her troponin x3 were negative. ProBNP is negative. She, however, was somewhat tachycardic and anxious, and she was admitted to ICU for further management and monitoring. The patient also admits to baseline difficulty ambulating due to sacral pain but is able to walk with assistance. Of note, in the past patient was referred by her primary medical doctor to rule out diagnosis of SLE based on her outpatient symptoms and presentation. No details of that workup is available at present time. PAST MEDICAL HISTORY: Ovarian cyst, right patellar hairline fracture. SOCIAL HISTORY: No alcohol or illicit drug abuse. The patient quit tobacco smoking about 1 year ago. She used to smoke for 2 to 3 years, five cigarettes a day. FAMILY HISTORY: Noncontributory. PAST SURGICAL HISTORY: None. HOME MEDICATIONS: Doxycycline and Motrin. Medications in the hospital, Tylenol p.r.n., aspirin, Colace, heparin drip, ibuprofen p.r.n., Protonix, MiraLax, ceftriaxone, normal saline 125 mL/hour, azithromycin. REVIEW OF SYSTEMS: Review of 12-organ system other than mentioned in history of present illness is negative. PHYSICAL EXAMINATION: VITAL SIGNS: Heart rate 142, respiratory rate 24, oxygen saturation 100% on room air, blood pressure 97/56. ENT: Atraumatic. HEAD AND NECK: Atraumatic. LUNGS: Decreased breath sounds on the right side. Some crackles on the right side. ABDOMEN: Soft, nontender, nondistended. HEART: Regular rate and rhythm. S1, S2 normal. ABDOMEN: Soft, nontender, nondistended. MUSCULOSKELETAL: Trace bilateral pedal and ankle edema bilaterally. SKIN: Moist. PSYCHIATRIC: The patient is alert and oriented x3. Slightly anxious. LABORATORY DATA: WBC 11.1, hemoglobin 10.8, platelet count 258. Sodium 142, potassium 4, chloride 106, carbon dioxide 25, BUN 14, creatinine 0.8, glucose 87, AST 72, ALT 80, total bilirubin 0.8, alkaline phosphatase 77, lactate dehydrogenase 705. Troponin x2 negative. INR 1.42. PTT is 73.8 (the patient is on therapeutic anticoagulation with heparin). ABG showed pH 7.39, lactic acid 1.1. Urine is negative for leukocyte esterase and nitrites, however, large blood and rbc's 10 to 15, mild proteinuria at 100. Influenza rapid test is negative. Chest CT showed saddle embolus with extension primarily into right lower middle and left upper lobe pulmonary arteries, interval development of a small right effusion with increasing right lower lobe airspace disease. Bilateral lower extremity Doppler study was also found to be positive for DVT. ASSESSMENT: This is a 27-year-old lady without significant past medical history who, however, was referred as an outpatient to rule out diagnosis of systemic lupus erythematosus, now presented with deep venous thrombosis and pulmonary embolism. Her troponin x3 was negative. Her proBNP is normal. Echocardiogram was ordered and pending. Bedside point of care ultrasound did not reveal significant right ventricular strain, IVC is small about 1.5 cm. The patient received 500 mL of IV fluid bolus. Her anxiety improved and HR went down from 150 to 130. At present time, the patient appears to be at low risk for short-term mortality in the setting of submassive pulmonary embolism. We will proceed with therapeutic anticoagulation. If formal Echo confirms lack of RV strain she will be switched to DOA. At present time, the patient also appears to be anxious that may contribute to elevated heart rate. We will continue to target euvolemia, euglycemia, normothermia, and oxygen saturation more than 90%. We will avoid fluid over-resuscitation to avoid putting extra strain on right ventricle. ccm time 40 min Nakul Medina MD [facility]
--- NOTE | 2017-12-10 13:17 | PN ---
DATE: HEMATOLOGY EVALUATION This is a 27-year-old woman with saddle embolism and pulmonary embolism. She is now acutely ill and is started on her heparin. I have ordered various blood tests to help determine if there is an underlying coagulopathy. This includes a Leiden factor V mutation, the prothrombin 14842 mutation, protein C, protein S, which may be falsely low on heparin, but I ordered anyway, the lupus anticoagulant, anticardiolipin antibody, antithrombin 3 antibody. At this point, however, regardless of whether there are positive results from these tests, she will require the acute treatment for blood clots and to be maintained on this for at least 6 to 9 months. So, we await some of these results. She is being treated acutely. Chidi Mason MD
[2017-12-10] MEDS: Heparin25000 units/250ml 1/2NS 25,000 UNITS/250 ML BAG IV PRN (14:27)
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
[2017-12-10] MEDS ORDERED: Sodium Chloride 0.9% 500 ML IV SCH (15:30)
[2017-12-10] MEDS ORDERED: Sodium Chloride 0.9% 1,000 ML IV SCH (19:00)
[2017-12-10 20:05] LABS: PARTIAL THROMBOPLASTIN TIME 88.1 Seconds (25.1-36.5)
[2017-12-10 20:18] LABS: INR 1.5 (0.93-1.08); PROTHROMBIN TIME 17.3 SECONDS (9.4-12.5)
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
[2017-12-10 22:52] LABS: VENOUS BLOOD GAS BASE EXCESS -1.6 mmol/L (0.0-2.0); VENOUS BLOOD GAS PO2 83 mm/Hg (30-55); VENOUS BLOOD PH 7.44 (7.32-7.43)
[2017-12-10 23:00] LABS: BLOOD UREA NITROGEN 13 mg/dL (7-21); CALCIUM 8.3 mg/dL (8.4-10.5); GFR AFRICAN-AMERICAN > 60; GFR NON-AFRICAN AMERICAN > 60; MAGNESIUM 2.1 mg/dL (1.7-2.2)
[2017-12-11] MEDS: Sodium Chloride 0.9% 1,000 ML IV SCH ×3 (04:00→17:15)
[2017-12-11 05:02] LABS: BASO # 0.01 K/mm3 (0.0-2.0); BASO % 0.1 % (0.0-3.0); EOS # 0.1 (0.0-0.7); EOS % 0.7 % (1.5-5.0); GRAN # 6.14 (1.4-6.5); GRAN % 68.4 % (50.0-68.0); MEAN CELL VOLUME 110.7 fl (80.0-105.0); MEAN CORPUSCULAR HGB CONC 33.5 g/dl (31.0-37.0); MEAN PLATELET VOLUME 10.1 fl (7.0-11.0); MONO # 0.8 (0.1-0.6); MONO % 8.8 % (1.0-6.0); RBC 2.43 10^6/uL (3.5-6.1); RED CELL DISTRIBUTION WIDTH 13.8 % (11.5-14.5)
[2017-12-11] MEDS: Cefepime IV 2 gm in NS 2 GM/100 ML BAG IVPB SCH ×3 (05:05→21:53)
[2017-12-11] MEDS: Pantoprazole 40 mg EC Tab PO SCH (05:06)
[2017-12-11 05:24] LABS: ALB/GLOB RATIO 1.1 (1.1-1.8); ALT/SGPT 162 U/L (7-56); AST/SGOT 131 U/L (14-36); BLOOD UREA NITROGEN 13 mg/dL (7-21); CALCIUM 8.5 mg/dL (8.4-10.5); GFR AFRICAN-AMERICAN > 60; GFR NON-AFRICAN AMERICAN > 60; MAGNESIUM 2.3 mg/dL (1.7-2.2)
[2017-12-11] MEDS: Heparin25000 units/250ml 1/2NS 25,000 UNITS/250 ML BAG IV PRN (08:25)
[2017-12-11 08:34] LABS: IRON 13 ug/dL (45-180)
[2017-12-11 08:43] LABS: % IRON SATURATION 5 % (20-55); TOTAL IRON BINDING CAPACITY 251 ug/dL (265-497)
--- NOTE | 2017-12-11 08:50 | PN ---
DATE: 12/11/2017 DOOR PATCHER NOTE SUBJECTIVE: The patient is resting on room air. O2 saturation is 95%. The patient has been evaluated by Psych and does have anxiety and panic disorders. At this time, she is not complaining of increased shortness of breath, cough, wheezing, or chest congestion. No chest pain. No fever, chills, nausea or vomiting. No diarrhea. No abdominal pain. PHYSICAL EXAMINATION: VITAL SIGNS: Note that her temperature is 99.3, her pulse is 118, respirations are 23 and BP is 98/62. O2 saturation is 94% on room air. HEENT: Head is atraumatic, normocephalic. Eyes reactive to light. Ears, nose and throat seem to be within normal limits. NECK: Supple. No JVD. No thyroid enlargement. No lymph nodes. HEART: Has a regular rate and rhythm. Normal S1, S2, but tachycardic. LUNGS: Reveal decreased breath sounds at the right base and occasional crackle at the right base as well. ABDOMEN: Soft. Decreased bowel sounds. No organomegaly noted. GENITALIA: Deferred. RECTAL: Deferred. MUSCULOSKELETAL: No joint deformities. EXTREMITIES: Reveal no significant edema. NEUROLOGIC: She seemed to be grossly intact. LABORATORY DATA: As far as her laboratories, the patient's white count is 9.0, hemoglobin is 9.0, hematocrit is 26.9 with platelets of 252,000. PTT is 67.2. The patient's sodium is 141, potassium 4.0, chloride 111, CO2 of 21 with a BUN of 13, creatinine 0.8 and a glucose of 101. IMPRESSION AND PLAN: This patient has a saddle pulmonary embolus, noted to have anemia, anxiety disorder, tachycardia, possible right lower lobe pneumonia. As far as our plan, we will continue with IV heparin and follow her PTT closely. Continue with aggressive pulmonary toilet. The patient will be monitored closely in the ICU and is on O2 support. The patient is getting aspirin as well as IV heparin as stated above. She is on cefepime antibiotics. The patient is getting Xanax p.r.n. and is also on azithromycin. We will continue to observe closely and treat aggressively along with the other consultants and the primary care doctor. Rivas Walker MD [facility] # [id number]
[2017-12-11] MEDS: Linezolid 600 mg in D5W 300 ml 600 MG/300 ML BAG IVPB SCH ×2 (09:37→21:52)
[2017-12-11] MEDS: POLYETHYLENE GLYCOL 3350 17 GM/Dose PACKET PO SCH (09:40)
[2017-12-11] MEDS: Azithromycin 500MG/NS 250ml 500 MG/250 ML BAG IVPB SCH (09:46)
--- NOTE | 2017-12-11 09:55 | US ---
HISTORY: elevated lft, bedside COMPARISON: None. TECHNIQUE: Grayscale imaging was performed. FINDINGS: LIVER: Measures 16.5 cm. There is diffuse increased echogenicity of the liver parenchyma. No mass. No intrahepatic bile duct dilatation. GALLBLADDER: There are no gallstones, wall thickening or pericholecystic fluid. The sonographic Mensah's sign is negative COMMON BILE DUCT: Measures 5.0 mm. No stones. No dilatation. PANCREAS: Unremarkable as visualized. No mass. No ductal dilatation. RIGHT KIDNEY: Measures 10.5cm. Normal echogenicity. No calculus, mass, or hydronephrosis. LEFT KIDNEY: Measures 10.4cm. Normal echogenicity. No calculus, mass, or hydronephrosis. SPLEEN: Normal in size and contour. No mass. AORTA: No aneurysmal dilatation. IVC: Unremarkable. OTHER FINDINGS: None. IMPRESSION: Mild hepatomegaly. Diffuse increased echogenicity in the liver may reflect hepatic steatosis however parenchymal infectious/ inflammatory etiologies cannot be entirely excluded. Clinical and laboratory correlation is advised.
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
[2017-12-11 10:59] LABS: FERRITIN 43.7 ng/mL
[2017-12-11 11:29] LABS: FOLATE > 20.0 ng/mL
--- NOTE | 2017-12-11 16:07 | CARD ---
APPROVED REPORT EKG Measurement Heart [id number] IA [id number] <Conclusion> Sinus tachycardia Possible Left atrial enlargement Cannot rule out Anterior infarct, age undetermined Abnormal ECG
--- NOTE | 2017-12-11 18:51 | PN ---
DATE: 12/11/2017 SUBJECTIVE: The patient is seen early this morning in the ICU, comfortable on exam. PHYSICAL EXAMINATION: VITAL SIGNS: Temperature is 98, T-max yesterday was 102, respiratory rate of 24, heart rate of 121. HEENT: Unremarkable. NECK: Supple. LUNGS: Decreased breath sounds. HEART: Normal S1 and S2. ABDOMEN: Soft and nontender. LABORATORY DATA: Reveals a white count of 9000, hemoglobin of 9, platelets of 252. Coagulation is noted. BUN of 13, creatinine of 0.8. Procalcitonin 0.10 that was done yesterday 12/10/2017. Microbiology reveals the blood cultures are negative. The MRSA screen is negative. Urine cultures are negative. The patient had abdominal ultrasound, which reveals the gallbladder, no stones, mild hepatomegaly, diffusely increased echogenicity of the liver. MEDICATIONS: Review of orders reveal the patient to be on cefepime and Linezolid. ASSESSMENT AND PLAN: This is a 27-year-old female with a history of ovarian cyst, history of fracture of the right patella, history of community-acquired pneumonia, obesity, body mass index of 31 who was admitted, but there seemed to be presumed pneumonia and was given ceftriaxone and Zithromax, discharged on p.o. doxycycline, was given a dose of vancomycin. Now, the patient has pulmonary emboli bronchograms. However, the patient has a normal procalcitonin and: 1. Severe sepsis with hypoxic respiratory failure due to right-sided healthcare-associated pneumonia with a normal procalcitonin and significant pulmonary emboli, on Zyvox and cefepime as well as Zithromax. Blood culture and urine culture are negative. Nares, MRSA is not detected and urine for Legionella is pending. The patient is on cefepime, erythromycin, and Zyvox. Review of the previous chart is noted. We will continue present course and we will repeat a procalcitonin. We will follow with you. Nikhil Gonzalez MD
--- NOTE | 2017-12-11 22:08 | CON ---
DATE: HISTORY OF PRESENT ILLNESS: The patient is a 27-year-old female with no formal psychiatric history per report, though does have a history of impulse control disorder, which required anger management classes in the past. The patient is being seen by Psychiatry due to reports of anxiety because of current medical issues from the of her mother a year prior. The patient had a pulmonary embolism recently and this has been very difficult for her. She also reports social anxiety in her prior job at [employer]. In general, she has been very anxious with some mild feelings of panic on the unit, though in good control, and coherent without any delusions or disorganized thoughts. I met with her at the bedside and she is well oriented to circumstances, month, year, and date. The patient appears little anxious , although her symptoms are a lot better since yesterday. She reported that she got a lot of sleep and she felt that this was restful sleep as prior nights she had a lot of incidences of waking up multiple times. She is tolerating her current medications well. She also has Xanax does help her with anxiety, aware that standing SSRI cannot be prescribed due to comfort with her other medications. The patient denies major depressive symptoms of hopelessness, guilt or loss of hope. She indicates that her main concerns are her anxiety and she does feel calmer today. She does state that prior it has been difficult because her mother , admitted in the same unit just a week prior; however, she at times claiming the the fact that she is "with me in someway." The patient is concerned about the diagnosis of pulmonary embolism other providers; however, as noted she is hopeful about the future and definitely going to work with medical team to optimize her medical condition. The patient is clear neurologically, she is not hallucinating, and there has been no major . Insight and judgment are appear to be fair. VITAL SIGNS AND LAB WORK: Reviewed by the provider. RELEVANT PSYCHIATRIC MEDICATIONS: Include Sonata 5 mg at bedtime p.r.n., as well as alprazolam 0.5 mg p.o. t.i.d.,p.r.n., of which, the patient received one dose in the morning. IMPRESSION: Adjustment disorder with anxiety, rule out generalized anxiety disorder, rule out panic disorder, and as per history, impulse control disorder. PLAN: We will continue with Xanax 0.5 mg t.i.d. p.r.n., as well as Sonata 5 mg at bedtime p.r.n. The patient would benefit from referral to see a therapist once she discharged. However, she does not meet any criteria for inpatient psychiatric stabilization, she is not a danger to herself or others. She is organized and not demonstrating any major profound dysfunction due to her anxiety symptoms. When she is medically cleared, she may be discharged, but __07:29__ provide her with psychiatric referrals for therapy and medication management, as well as scripts to last until an initial basic evaluation date can be established with a mental health care provider. Mykel Rich MD
[2017-12-12] MEDS: Pantoprazole 40 mg EC Tab PO SCH (05:26)
[2017-12-12] MEDS: Cefepime IV 2 gm in NS 2 GM/100 ML BAG IVPB SCH (05:27)
[2017-12-12] MEDS: Heparin25000 units/250ml 1/2NS 25,000 UNITS/250 ML BAG IV PRN ×2 (05:28→20:54)
[2017-12-12 06:23] LABS: BASO # 0.02 K/mm3 (0.0-2.0); BASO % 0.3 % (0.0-3.0); EOS # 0.2 (0.0-0.7); EOS % 2.9 % (1.5-5.0); GRAN # 4.8 (1.4-6.5); GRAN % 66.5 % (50.0-68.0); HEMOGLOBIN 8.4 g/dL (12.0-16.0); LYMPH # 1.8 (1.2-3.4); LYMPH % 25.4 % (22.0-35.0); MEAN CORPUSCULAR HEMOGLOBIN 36.4 pg (25.0-35.0); MEAN CORPUSCULAR HGB CONC 33.1 g/dl (31.0-37.0); MONO # 0.4 (0.1-0.6); MONO % 4.9 % (1.0-6.0); RBC 2.31 10^6/uL (3.5-6.1); RED CELL DISTRIBUTION WIDTH 13.7 % (11.5-14.5); WHITE BLOOD COUNT 7.2 10^3/ul (4.5-11.0)
[2017-12-12 06:27] LABS: ALB/GLOB RATIO 1.1 (1.1-1.8); ALBUMIN 2.9 g/dL (3.0-4.8); ALT/SGPT 113 U/L (7-56); AST/SGOT 66 U/L (14-36); BLOOD UREA NITROGEN 11 mg/dL (7-21); CALCIUM 8.8 mg/dL (8.4-10.5); GFR AFRICAN-AMERICAN > 60; GFR NON-AFRICAN AMERICAN > 60; MAGNESIUM 2.2 mg/dL (1.7-2.2)
--- NOTE | 2017-12-12 07:32 | CP.PCM.PN ---
<BeatrizChidi - Last Filed: 12/12/17 10:50> Subjective - Date & Time of Evaluation Date of Evaluation: 12/12/17 Time of Evaluation: 07:31 - Subjective Subjective: Chidi GaleasBeatriz PGY1 IM Progress Note Patient was seen and examined in ICU. She is noticeably less anxious but still complaining of leg pain with movements and states that her legs feel heavy. her movements are improved with assistance. she is breathing comfortably off O2 and slept with it off with no desats. she was also able to get out of bed and tolerated it well. patient denies shortness of breath, chest pain, nausea/ vomiting, but is feeling constipated and a little anxious. Objective - Vital Signs/Intake and Output Vital Signs (last 24 hours): Temp Pulse Resp BP Pulse Ox 98.1 F 100 H 16 96/51 L 98 12/12/17 06:00 12/12/17 06:10 12/12/17 06:10 12/12/17 06:00 12/12/17 06:10 Intake and Output: 12/12/17 12/12/17 06:59 18:59 Intake Total 250 Balance 250 - Medications Medications: Current Medications Acetaminophen (Tylenol 325mg Tab) 650 mg PO Q4H PRN PRN Reason: Fever >100.4 F Last Admin: 12/11/17 09:39 Dose: 650 mg Alprazolam (Xanax) 0.5 mg PO TID PRN; Protocol PRN Reason: Anxiety Last Admin: 12/10/17 09:37 Dose: 0.5 mg Aspirin (Ecotrin) 81 mg PO DAILY [facility] Last Admin: 12/11/17 09:37 Dose: 81 mg Docusate Sodium (Colace) 100 mg PO BID [facility] Last Admin: 12/11/17 17:14 Dose: 100 mg Heparin Sodium/Sodium Chloride (Heparin 55607 Units/250ml 1/2 Normal Saline) 25 ,000 units in 250 mls @ 16.901 mls/hr IV .[id number] PRN; Protocol; 18 UNITS/KG/HR PRN Reason: ADJUST RATE PER PROTOCOL Last Admin: 12/12/17 05:28 Dose: 14 units/kg/hr, 13.145 mls/hr Azithromycin (Zithromax 500mg In Ns) 500 mg in 250 mls @ 167 mls/hr IVPB DAILY [facility] PRN Reason: Protocol Last Admin: 12/11/17 09:46 Dose: 167 mls/hr Sodium Chloride (Sodium Chloride 0.9%) 1,000 mls @ 125 mls/hr IV .Q8H [facility]ATHANIEL Last Admin: 12/11/17 17:15 Dose: 125 mls/hr Cefepime HCl (Maxipime 2gm) 2 gm in 100 mls @ 100 mls/hr IVPB Q8 [facility]ATH[facility] PRN Reason: Protocol Stop: 12/15/17 08:46 Last Admin: 12/12/17 05:27 Dose: 100 mls/hr Linezolid (Zyvox 600mg/300ml D5w) 600 mg in 300 mls @ 200 mls/hr IVPB Q12 [facility]ATHANIEL PRN Reason: Protocol Stop: 12/17/17 10:01 Last Admin: 12/11/17 21:52 Dose: 200 mls/hr Ibuprofen (Motrin Tab) 600 mg PO Q6H PRN PRN Reason: Pain, moderate (4-7) Last Admin: 12/11/17 22:40 Dose: 600 mg Pantoprazole Sodium (Protonix Ec Tab) 40 mg PO 0600 [facility] Last Admin: 12/12/17 05:26 Dose: 40 mg Polyethylene Glycol (Miralax) 17 gm PO DAILY [facility] Last Admin: 12/11/17 09:40 Dose: 17 gm Zaleplon (Sonata) 5 mg PO HS PRN PRN Reason: Insomnia - Labs Labs: 12/12/17 05:00 12/12/17 05:00 PT 17.3 SECONDS (9.4-12.5) H 12/10/17 19:45 INR 1.50 (0.93-1.08) H 12/10/17 19:45 APTT 59.8 Seconds (25.1-36.5) H 12/12/17 05:00 - Additional Findings Additional findings: - Constitutional Appears: Well, Non-toxic, No Acute Distress - Head Exam Head Exam: ATRAUMATIC, NORMAL INSPECTION - Eye Exam Eye Exam: EOMI, Normal appearance - ENT Exam ENT Exam: Mucous Membranes Moist - Neck Exam Neck Exam: Normal Inspection - Respiratory Exam Respiratory Exam: NORMAL BREATHING PATTERN. absent: Rhonchi, Wheezes, Respiratory Distress - Cardiovascular Exam Cardiovascular Exam: Tachycardia (improved), REGULAR RHYTHM, +S1, +S2 - GI/Abdominal Exam GI & Abdominal Exam: Soft, Normal Bowel Sounds. absent: Distended, Tenderness - Extremities Exam Extremities Exam: Normal Inspection. absent: Full ROM (active ROM limited due to pain, however passive ROM is full), Joint Swelling, Pedal Edema - Back Exam Back Exam: NORMAL INSPECTION - Neurological Exam Neurological Exam: Alert, Awake, Oriented x3 - Psychiatric Exam Psychiatric exam: Anxious - Skin Skin Exam: Normal Color, Warm Assessment and Plan - Assessment and Plan (Free Text) Assessment: 27 year old female with past medical history of ovarian cysts who was admitted for evaluation and treatment of cough with blood tinged sputum production. Admitted to ICU and being treated for unprovoked first pulmonary embolus ( saddle embolus), RLE DVT and a pneumonia. Patient is on heparin drip, and will need to be started on long-term anticoagulantion per [facility] recommendations. She is hemodynamically stable and is getting out of bed to chair as tolerated and improving her breathing off O2. Patient is anxious at baseline. Plan: 1. Cough/Hemoptysis 2/2 unprovoked DVT/PE - Continue heparin drip in ICU; Heme recommending 6-9months however no medication noted - will contact [facility] for recommendations for long-term anticoagulation - Continue to monitor closely in the ICU - Extremity ultrasound significant for extensive occlusive thrombus in femoral and popliteal veins - CT angio chest significant for saddle embolus with extension into the right lower and middle, and left upper lobe arteries - EKG without signs of right heart strain; echo done to r/o right heart strain, pending official read - hypercoagulable workup ordered: antiphospholipid ab, AT III activity, Factor V leiden, Lupus anticoagulant, Protein C activity and ag, Protein S activity and ag, prothrombin gene mutation, flow cytometry - MECHELLE is negative, pending rest of work up as noted above - Hem/Onc on consult; appreciate recs 2. Community Acquired Pneumonia; SIRS criteria resolved but patient was septic on admission - blood cultures negative - IVF NS @ 125 - atypicals- legionella, mycoplasma, strep ordered in previous visit; reordered per ID - negative flu - Procal is low - d/c Zyvox, Zithromax, and Cefepime per ID - started on Doxy 100BID x5 days per ID - encourage incentive spirometer use 3. Anemia - macroytic as MCV is elevated, likely a component of B12 and iron deficiency - B12 low, folate normal - iron is low - started on B12 supplements - d/c IV Venofer and started on Fesol - will monitor for signs of bleeding, and cont monitoring H/H 4. Elevated LFTs - abdominal US showed mild hepatomegaly, and fatty liver but could not rule out infectious/inflammatory changes - hepatitis panel ordered, pending - HIV ordered, pending - avoid hepatotoxins - Continue to monitor 5. Abdominal Discomfort; Constipation - Continue Miralax and Colace - given mag of citrate x1 6. Anxiety - cont Xanax 0.5mg PO TID PRN - cont Sonata 5mg HS PRN - Psych consult; appreciate recs - Patient does not meet criteria for inpatient psych unit, but would benefit from from outpatient therapist (per psych recs) 7. Back Pain; Rib Pain - 12/08/[address]- T spine unremarkable - 12/08/[address]- L spine unremarkable; Right lower lobe infiltrate and consolidation suspicious for right lower lobe pneumonia. - high risk fall precautions - PT/OT evaluation and treatment - out of bed as tolerated - ibuprofen prn pain 8. Prophylaxis - DVT ppx- currently on Heparin drip - GI ppx- protonix PO Patient was seen, examined and discussed with attending, Dr. Noe Henderson PGY1 Pager # [phone] <Long Liu - Last Filed: 12/12/17 15:16> Objective - Vital Signs/Intake and Output Vital Signs (last 24 hours): Temp Pulse Resp BP Pulse Ox 98.1 F 116 H 21 131/64 98 12/12/17 06:00 12/12/17 12:40 12/12/17 12:40 12/12/17 11:01 12/12/17 11:20 Intake and Output: 12/12/17 12/12/17 06:59 18:59 Intake Total 2007 30 Output Total 1400 Balance 607 30 - Medications Medications: Current Medications Acetaminophen (Tylenol 325mg Tab) 650 mg PO Q4H PRN PRN Reason: Fever >100.4 F Last Admin: 12/11/17 09:39 Dose: 650 mg Alprazolam (Xanax) 0.5 mg PO TID PRN; Protocol PRN Reason: Anxiety Last Admin: 12/10/17 09:37 Dose: 0.5 mg Aspirin (Ecotrin) 81 mg PO DAILY [facility] Last Admin: 12/12/17 10:23 Dose: 81 mg Cyanocobalamin (Vitamin B12 1000 Mcg Tab) 1,000 mcg PO DAILY [facility] Last Admin: 12/12/17 10:23 Dose: 1,000 mcg Docusate Sodium (Colace) 100 mg PO BID [facility] Last Admin: 12/12/17 10:23 Dose: 100 mg Doxycycline Hyclate (Doryx) 100 mg PO Q12 [facility]EL PRN Reason: Protocol Stop: 12/17/17 10:01 Last Admin: 12/12/17 10:23 Dose: 100 mg Ferrous Sulfate (Feosol) 324 mg PO TID [facility] Last Admin: 12/12/17 13:33 Dose: 324 mg Heparin Sodium/Sodium Chloride (Heparin 55260 Units/250ml 1/2 Normal Saline) 25 ,000 units in 250 mls @ 16.901 mls/hr IV .[id number] PRN; Protocol; 18 UNITS/KG/HR PRN Reason: ADJUST RATE PER PROTOCOL Last Titration: 12/12/17 07:00 Dose: 14 units/kg/hr, 13.145 mls/hr Sodium Chloride (Sodium Chloride 0.9%) 1,000 mls @ 125 mls/hr IV .Q8H [facility] Last Admin: 12/12/17 08:49 Dose: 125 mls/hr Ibuprofen (Motrin Tab) 600 mg PO Q6H PRN PRN Reason: Pain, moderate (4-7) Last Admin: 12/11/17 22:40 Dose: 600 mg Multivitamins/Minerals (Therapeutic-M Tab) 1 tab PO 0800 [facility] Last Admin: 12/12/17 11:03 Dose: 1 tab Pantoprazole Sodium (Protonix Ec Tab) 40 mg PO 0600 [facility] Last Admin: 12/12/17 05:26 Dose: 40 mg Polyethylene Glycol (Miralax) 17 gm PO DAILY [facility] Last Admin: 12/12/17 10:23 Dose: 17 gm Zaleplon (Sonata) 5 mg PO HS PRN PRN Reason: Insomnia - Labs Labs: 12/12/17 05:00 12/12/17 05:00 PT 17.3 SECONDS (9.4-12.5) H 12/10/17 19:45 INR 1.50 (0.93-1.08) H 12/10/17 19:45 APTT 59.8 Seconds (25.1-36.5) H 12/12/17 05:00 Attending/Attestation - Attestation I have personally seen and examined this patient.: Yes I have fully participated in the care of the patient.: Yes I have reviewed all pertinent clinical information, including history, physical exam and plan: Yes Notes (Text): 12/12/17 15:14 attending note; Patient seen and examined with resident in ICU. Patient is a 27-year-old female admitted with unprovoked first episode of pulmonary embolism. CT showed saddle embolus. Patient also has right lower extremity DVT. Continue IV heparin drip. We will start eliquis tomorrow. hypercoagulable work up in progress. Oncology evaluation appreciated. Tachycardia improved. pneumonia; patient is on cefepime, Zyvox and Zithromax. Patient is hemodynamically stable for now. Continue to monitor closely in ICU. out of bed to chair as tolerated. continue oxygen. PT evaluation requested. Severe anxiety; started on Xanax. Psychiatric evaluation appreciated. upon discharge the patient will follow-up with PMD DR. Gerda izquierdo.
[2017-12-12] MEDS ORDERED: Magnesium Citrate Oral SOL (300 ml) PO ONE ×2 (07:53→10:31)
[2017-12-12] MEDS: Sodium Chloride 0.9% 1,000 ML IV SCH (08:49)
--- NOTE | 2017-12-12 09:17 | PN ---
DATE: 12/12/2017 MONOGRAM MAKER NOTE SUBJECTIVE: The patient is resting in bed on room air. No complaints of increased shortness of breath, cough, wheezing or chest congestion. No chest pain. No episodes of anxiety. PHYSICAL EXAMINATION: VITAL SIGNS: Note that her temperature is 98.1, her pulse is 100, respirations are 16, and BP is 96/51. SKIN: Warm and dry. HEENT: Head is atraumatic, normocephalic. Eyes are reactive to light. Ears, nose, and throat seemed to be within normal limits. NECK: Supple. No JVD. No thyroid enlargement or lymph nodes. HEART: Regular rate and rhythm. Normal S1 and S2. Mildly tachycardic. LUNGS: Revealed good breath sounds bilaterally. ABDOMEN: Soft and nontender. Normal bowel sounds. GENITALIA AND RECTAL: Deferred. MUSCULOSKELETAL: Within normal limits. EXTREMITIES: Reveal no significant edema. NEUROLOGIC: She seemed to be grossly intact. LABORATORY DATA: As far as her laboratories are concerned, her white count is 7.2, hemoglobin is 8.4 with hematocrit of 25.4, and platelets of 286,000. The patient's PTT is 59.8. Sodium is 141, potassium is 4.1, chloride is 109, CO2 of 22 with BUN of 11, creatinine of 0.6, and glucose of 81. IMPRESSION AND PLAN: The patient has saddle pulmonary embolus as well as anemia and anxiety disorder. She is noted to have mild tachycardia and possible right lower lobe pneumonia. The patient is on IV heparin and following the PTT closely, we will continue with O2 via nasal cannula p.r.n. and pulmonary toilet. She is on aspirin as well as cefepime. The patient is being seen by Psych and is on Xanax as well as another antibiotic azithromycin. We will continue to treat aggressively along with the other consultants and the primary care doctor. Rivas Walker MD
[2017-12-12] MEDS: POLYETHYLENE GLYCOL 3350 17 GM/Dose PACKET PO SCH (10:23)
[2017-12-12] MEDS: Multivitamin With Minerals Tab PO SCH (11:03)
--- NOTE | 2017-12-12 11:33 | PN ---
DATE: 12/12/2017 SUBJECTIVE: The patient is seen earlier this morning in 128, bed 1. She states she is having generalized aches and pains. She is weak and, however, she is doing much better, she is awake and alert. She is seen in ICU 128, bed 1. OBJECTIVE: VITAL SIGNS: Temperature is 98, blood pressure is 114/60, respiratory rate of 22, and heart rate of 114. HEENT: Unremarkable. NECK: Supple. LUNGS: Have decreased breath sounds. HEART: Normal S1 and S2. ABDOMEN: Soft and nontender. No rebound or guarding. LABORATORY DATA: Reveals white count of 7000, hemoglobin of 8, and platelets of 286. Sed rate is 70. BUN of 11 and creatinine of 0.6. The patient's procalcitonin is 0.14, repeat one initial was 0.10. Urinalysis is noted and immunology MECHELLE screen is negative. The patient's influenza is negative and urine for Legionella antigen is negative and microbiology reveals the naris cultures are negative, the blood cultures are negative, the urine cultures are negative. The patient had an abdominal ultrasound with no gallstones, essentially gallbladder is negative, mild hepatomegaly and hepatic steatosis is noted and Dr. Hanna's progress note is reviewed. ASSESSMENT AND PLAN: A 27-year-old female with obesity with body mass index of 31 admitted now with saddle pulmonary emboli with: 1. Severe sepsis, hypoxic respiratory failure with right-sided healthcare-associated pneumonia with normal procalcitonin x2 pulmonary emboli. All cultures negative. We are awaiting for an HIV test. The patient does not have any risk factors for HIV and we will discontinue the cefepime and IV azithromycin. We will also discontinue the Zyvox. We will complete with short course of p.o. doxycycline. I do not believe the patient has a bacterial pneumonia, most likely just chest pulmonary emboli. We will complete the doxycycline p.o. 100 mg x5 days. We will check on the HIV test. The patient states she has never been . She is a lesbian not sexually involved with men. Nikhil Gonzalez MD
[2017-12-13] MEDS: Sodium Chloride 0.9% 1,000 ML IV SCH (02:00)
[2017-12-13 06:23] LABS: PHOSPHATIDYLSERINE AB IGG <10 U/mL (<10); PHOSPHATIDYLSERINE AB IGM <25 U/mL (<25)
[2017-12-13 06:28] LABS: BASO # 0.02 K/mm3 (0.0-2.0); BASO % 0.3 % (0.0-3.0); EOS # 0.3 (0.0-0.7); EOS % 3.7 % (1.5-5.0); GRAN # 4.54 (1.4-6.5); GRAN % 66.9 % (50.0-68.0); LYMPH # 1.6 (1.2-3.4); LYMPH % 23.4 % (22.0-35.0); MEAN CELL VOLUME 109.5 fl (80.0-105.0); MEAN CORPUSCULAR HEMOGLOBIN 36.4 pg (25.0-35.0); MEAN CORPUSCULAR HGB CONC 33.2 g/dl (31.0-37.0); MONO # 0.4 (0.1-0.6); MONO % 5.7 % (1.0-6.0); RBC 2.75 10^6/uL (3.5-6.1); WHITE BLOOD COUNT 6.8 10^3/ul (4.5-11.0)
[2017-12-13 06:41] LABS: ALB/GLOB RATIO 1.1 (1.1-1.8); ALBUMIN 3.4 g/dL (3.0-4.8); ALT/SGPT 97 U/L (7-56); AST/SGOT 61 U/L (14-36); BLOOD UREA NITROGEN 10 mg/dL (7-21); CALCIUM 9.7 mg/dL (8.4-10.5); GFR AFRICAN-AMERICAN > 60; GFR NON-AFRICAN AMERICAN > 60
[2017-12-13] MEDS: Pantoprazole 40 mg EC Tab PO SCH (06:53)
[2017-12-13 07:38] LABS: B2 GLYCOPROTEIN I AB(IGA) <9 SAU (<=20); B2 GLYCOPROTEIN I AB(IGG) <9 SGU (<=20); B2 GLYCOPROTEIN I AB(IGM) <9 SMU (<=20); CARDIOLIPIN AB (IGA) <11 APL (<=11); CARDIOLIPIN AB (IGG) <14 GPL (<=14); CARDIOLIPIN AB (IGM) <12 MPL (<=12); PHOSPHATIDYLSERINE AB IGA <20 U/mL (<20)
[2017-12-13] MEDS: Multivitamin With Minerals Tab PO SCH (08:20)
[2017-12-13 08:23] LABS: HEPATITIS B SURFACE AG Negative (NEGATIVE)
[2017-12-13 08:29] LABS: HEPATITIS A IGM NEGATIVE (NEGATIVE); HEPATITIS B CORE AB NEGATIVE (NEGATIVE)
[2017-12-13 08:41] LABS: HEPATITIS C ANTIBODY NEGATIVE (NEGATIVE)
--- NOTE | 2017-12-13 09:04 | CARD ---
APPROVED REPORT EXAM: Two-dimensional and M-mode echocardiogram with Doppler and color Doppler. INDICATION EVALUATE RV STRAIN/SADDLE PE 2D DIMENSIONS Left Atrium (2D)3.8 (1.6-4.0cm)IVSd1.0 (0.7-1.1cm) LVDd4.0 (3.9-5.9cm)PWd1.0 (0.7-1.1cm) LVEF (%)50.0 (>50%) M-Mode DIMENSIONS Aortic Root2.90 (2.2-3.7cm)Aortic Cusp Exc.1.90 (1.5-2.0cm) Aortic Valve AoV Peak [id number]/Aracely Peak GR.6mmHg Mitral Valve E/A ratio0.0 TDI E/Lateral E'0.0E/Medial E'0.0 Pulmonary Valve PV Peak [id number]/sPV Peak Grad.2mmHg Tricuspid Valve TR Peak [id number] [id number] Peak Gr.29mmHg [id number] LEFT VENTRICLE The left ventricle is normal size. There is normal left ventricular wall thickness. Left ventricle systolic function is borderline. There is normal LV segmental wall motion. Transmitral Doppler flow pattern is Grade I-abnormal relaxation pattern. RIGHT VENTRICLE The right ventricle is normal size. There is normal right ventricular wall thickness. RV Systolic function is moderately to severely reduced. ATRIA The left atrium size is normal. The right atrium size is normal. AORTIC VALVE The aortic valve is normal in structure. No aortic regurgitation is present. MITRAL VALVE The mitral valve is normal in structure. There is no mitral valve regurgitation noted. TRICUSPID VALVE There is mild tricuspid regurgitation. There is mild pulmonary hypertension. GREAT VESSELS The aortic root is normal in size. The IVC was not visualized. PERICARDIAL EFFUSION There is no pericardial effusion. <Conclusion> The left ventricle is normal size. There is normal left ventricular wall thickness. Left ventricle systolic function is borderline. There is normal LV segmental wall motion. Transmitral Doppler flow pattern is Grade I-abnormal relaxation pattern. The right ventricle is normal size. RV Systolic function is moderately to severely reduced. There is mild tricuspid regurgitation. There is mild pulmonary hypertension.
[2017-12-13] MEDS: POLYETHYLENE GLYCOL 3350 17 GM/Dose PACKET PO SCH (10:10)
--- NOTE | 2017-12-13 14:23 | CP.PCM.PN ---
<Ava Fitzpatrick - Last Filed: 12/13/17 13:55> Subjective - Date & Time of Evaluation Date of Evaluation: 12/13/17 Time of Evaluation: 07:30 - Subjective Subjective: Ava Fitzpatrick DO PGY1 - IM Progress Note Patient seen and examined at bedside in ICU. No acute events overnight. Patient still complaining of some anxiety. Denies cough, hemoptysis, shortness of breath , chest pain, diaphoresis. She reports one bowel movement yesterday. She also denies hematochezia, melena, or hematuria. She reports that she was able to walk a little bit yesterday with the physical therapist, and was able to get out of bed on her own today. Objective - Vital Signs/Intake and Output Vital Signs (last 24 hours): Temp Pulse Resp BP Pulse Ox 98.3 F 115 H 22 104/63 99 12/13/17 12:00 12/13/17 13:00 12/13/17 13:00 12/13/17 12:00 12/13/17 12:00 Intake and Output: 12/13/17 12/13/17 06:59 18:59 Intake Total 1888 Output Total 1500 Balance 388 - Medications Medications: Current Medications Acetaminophen (Tylenol 325mg Tab) 650 mg PO Q4H PRN PRN Reason: Fever >100.4 F Last Admin: 12/11/17 09:39 Dose: 650 mg Alprazolam (Xanax) 0.5 mg PO TID PRN; Protocol PRN Reason: Anxiety Last Admin: 12/12/17 23:12 Dose: 0.5 mg Aspirin (Ecotrin) 81 mg PO DAILY [facility] Last Admin: 12/13/17 10:12 Dose: 81 mg Cyanocobalamin (Vitamin B12 1000 Mcg Tab) 1,000 mcg PO DAILY [facility] Last Admin: 12/13/17 10:12 Dose: 1,000 mcg Docusate Sodium (Colace) 100 mg PO BID [facility] Last Admin: 12/13/17 10:10 Dose: Not Given Doxycycline Hyclate (Doryx) 100 mg PO Q12 [facility] PRN Reason: Protocol Stop: 12/17/17 10:01 Last Admin: 12/13/17 10:12 Dose: 100 mg Ferrous Sulfate (Feosol) 324 mg PO TID [facility] Last Admin: 12/13/17 13:06 Dose: 324 mg Heparin Sodium/Sodium Chloride (Heparin 30979 Units/250ml 1/2 Normal Saline) 25 ,000 units in 250 mls @ 16.901 mls/hr IV .[id number] PRN; Protocol; 18 UNITS/KG/HR PRN Reason: ADJUST RATE PER PROTOCOL Last Admin: 12/12/17 20:54 Dose: 14 units/kg/hr, 13.145 mls/hr Ibuprofen (Motrin Tab) 600 mg PO Q6H PRN PRN Reason: Pain, moderate (4-7) Last Admin: 12/11/17 22:40 Dose: 600 mg Multivitamins/Minerals (Therapeutic-M Tab) 1 tab PO 0800 [facility] Last Admin: 12/13/17 08:20 Dose: 1 tab Pantoprazole Sodium (Protonix Ec Tab) 40 mg PO 0600 [facility] Last Admin: 12/13/17 06:53 Dose: 40 mg Polyethylene Glycol (Miralax) 17 gm PO DAILY [facility] Last Admin: 12/13/17 10:10 Dose: Not Given Zaleplon (Sonata) 5 mg PO HS PRN PRN Reason: Insomnia - Labs Labs: 12/13/17 05:20 12/13/17 05:20 PT 17.3 SECONDS (9.4-12.5) H 12/10/17 19:45 INR 1.50 (0.93-1.08) H 12/10/17 19:45 APTT 63.0 Seconds (25.1-36.5) H 12/13/17 05:20 - Constitutional Appears: Non-toxic, No Acute Distress - Head Exam Head Exam: ATRAUMATIC, NORMOCEPHALIC - Eye Exam Eye Exam: EOMI, Normal appearance, PERRL - ENT Exam ENT Exam: Mucous Membranes Moist - Neck Exam Neck Exam: Normal Inspection - Respiratory Exam Respiratory Exam: Clear to Ausculation Bilateral, NORMAL BREATHING PATTERN - Cardiovascular Exam Cardiovascular Exam: Tachycardia, REGULAR RHYTHM, +S1, +S2 - GI/Abdominal Exam GI & Abdominal Exam: Soft, Normal Bowel Sounds. absent: Tenderness - Extremities Exam Extremities Exam: absent: Calf Tenderness, Pedal Edema - Neurological Exam Neurological Exam: Alert, Awake, Oriented x3 - Psychiatric Exam Psychiatric exam: Anxious, Depressed, Normal Affect - Skin Skin Exam: Dry, Intact, Normal Color Assessment and Plan - Assessment and Plan (Free Text) Assessment: 27 year old female with past medical history of ovarian cysts who was admitted for evaluation and treatment of cough with blood tinged sputum production. Admitted to ICU and being treated for unprovoked first pulmonary embolus ( saddle embolus), RLE DVT and a pneumonia. Patient is on heparin drip, and will need to be started on long-term anticoagulantion per [facility] recommendations. She is hemodynamically stable and is getting out of bed to chair as tolerated and improving her breathing off O2. Patient is anxious at baseline. Plan: 1. Cough/Hemoptysis 2/2 unprovoked DVT/PE - Continue heparin drip; will discuss with [facility] regarding long-term anticoag - Patient is hemodynamically stable; saturating well on RA; no plans for thrombolysis or thrombectomy; will downgrade to telemetry - Echo done shows borderline LVEF (50%) and moderately to severely reduced RV systolic function - hypercoagulable workup ordered: Factor V leiden, prothrombin gene mutation - MECHELLE, protein C and S, antiphospholipid ab, Lupus anticoagulant, AT III activity, flow cytometry is negative;further studies pending as above - Hem/Onc on consult; appreciate recs - Requested cardiac consultation for monitoring of cardiac function and echo findings 2. Community Acquired Pneumonia - IVF NS @ 125 - atypicals- legionella negative, mycoplasma positive, strep negative from previous visit - Continue Doxy 100BID x5 days per ID - encourage incentive spirometer use 3. Anemia - Continue B12 supplements - Continue PO iron; continue IV iron for 3 more days - will monitor for signs of bleeding, and cont monitoring H/H - LDH high, but retic count low; unlikely to be hemolysis - Requested peripheral smear 4. Elevated LFTs - Improving; likely 2/2 passive congestion in setting of PE - acute viral hepatitis panel negative - HIV ordered, pending - avoid hepatotoxins - Continue to monitor 5. Abdominal Discomfort; Constipation - Patient had BM yesterday, but still has some mild discomfort - Continue Miralax and Colace 6. Anxiety - cont Xanax 0.5mg PO TID PRN - cont Sonata 5mg HS PRN - Psych consult; appreciate recs - Patient does not meet criteria for inpatient psych unit, but would benefit from from outpatient therapist (per psych recs) 7. Back Pain; Rib Pain - 12/08/[address]- T spine unremarkable - 12/08/[address]- L spine unremarkable; Right lower lobe infiltrate and consolidation suspicious for right lower lobe pneumonia. - high risk fall precautions - PT/OT evaluation and treatment - out of bed as tolerated - ibuprofen prn pain 8. Prophylaxis - DVT ppx- currently on Heparin drip - GI ppx- protonix PO Patient was seen, examined and discussed with attending, Dr. Duran <Larry Duran - Last Filed: 12/13/17 17:52> Objective - Vital Signs/Intake and Output Vital Signs (last 24 hours): Temp Pulse Resp BP Pulse Ox 98.7 F 120 H 23 131/75 98 12/13/17 16:00 12/13/17 16:00 12/13/17 16:00 12/13/17 16:00 12/13/17 16:00 Intake and Output: 12/13/17 12/13/17 06:59 18:59 Intake Total 1888 Output Total 1500 Balance 388 - Medications Medications: Current Medications Acetaminophen (Tylenol 325mg Tab) 650 mg PO Q4H PRN PRN Reason: Fever >100.4 F Last Admin: 12/11/17 09:39 Dose: 650 mg Alprazolam (Xanax) 0.5 mg PO TID PRN; Protocol PRN Reason: Anxiety Last Admin: 12/12/17 23:12 Dose: 0.5 mg Aspirin (Ecotrin) 81 mg PO DAILY [facility] Last Admin: 12/13/17 10:12 Dose: 81 mg Cyanocobalamin (Vitamin B12 1000 Mcg Tab) 1,000 mcg PO DAILY [facility] Last Admin: 12/13/17 10:12 Dose: 1,000 mcg Docusate Sodium (Colace) 100 mg PO BID [facility] Last Admin: 12/13/17 17:13 Dose: Not Given Doxycycline Hyclate (Doryx) 100 mg PO Q12 [facility] PRN Reason: Protocol Stop: 12/17/17 10:01 Last Admin: 12/13/17 10:12 Dose: 100 mg Ferrous Sulfate (Feosol) 324 mg PO TID [facility] Last Admin: 12/13/17 17:16 Dose: 324 mg Heparin Sodium/Sodium Chloride (Heparin 58160 Units/250ml 1/2 Normal Saline) 25 ,000 units in 250 mls @ 16.901 mls/hr IV .[id number] PRN; Protocol; 18 UNITS/KG/HR PRN Reason: ADJUST RATE PER PROTOCOL Last Admin: 12/12/17 20:54 Dose: 14 units/kg/hr, 13.145 mls/hr Ibuprofen (Motrin Tab) 600 mg PO Q6H PRN PRN Reason: Pain, moderate (4-7) Last Admin: 12/11/17 22:40 Dose: 600 mg Multivitamins/Minerals (Therapeutic-M Tab) 1 tab PO 0800 [facility] Last Admin: 12/13/17 08:20 Dose: 1 tab Pantoprazole Sodium (Protonix Ec Tab) 40 mg PO 0600 [facility] Last Admin: 12/13/17 06:53 Dose: 40 mg Polyethylene Glycol (Miralax) 17 gm PO DAILY [facility] Last Admin: 12/13/17 10:10 Dose: Not Given Zaleplon (Sonata) 5 mg PO HS PRN PRN Reason: Insomnia - Labs Labs: 12/13/17 05:20 12/13/17 05:20 PT 17.3 SECONDS (9.4-12.5) H 12/10/17 19:45 INR 1.50 (0.93-1.08) H 12/10/17 19:45 APTT 63.0 Seconds (25.1-36.5) H 12/13/17 05:20 Attending/Attestation - Attestation I have personally seen and examined this patient.: Yes I have fully participated in the care of the patient.: Yes I have reviewed all pertinent clinical information, including history, physical exam and plan: Yes Notes (Text): I have seen and examined the patient at bedside. Agree with the above note with the following additions/ exceptions: Briefly this is 27 year old female who was admitted with first episode of unprovoked saddle PE and RLE DVT. Patient denies any cough, hemoptysis, chest pain, dyspnea or any other complaints. Reports that her anxiety and leg pain is better. Continue IV heparin for now. Will start NOAC tomorrow. Echo revealed ef of 50% and moderately to severely reduced RV systolic function. Awaiting cardiology recommendations. Patient also has atypical HCAP on doxycycline. Continue xanax for anxiety. Upon discharge the patient will follow-up with PMD Dr Gerda izquierdo. Dr Larry Duran
--- NOTE | 2017-12-13 16:47 | CP.PCM.PN ---
Subjective - Date & Time of Evaluation Date of Evaluation: 12/13/17 Time of Evaluation: 09:00 - Subjective Subjective: Still with tachypnea, no chest pain, no fevers overnight. Objective - Vital Signs/Intake and Output Vital Signs (last 24 hours): Temp Pulse Resp BP Pulse Ox 98.1 F 112 H 18 99/61 L 94 L 12/12/17 06:00 12/13/17 02:50 12/13/17 02:50 12/13/17 02:00 12/13/17 02:50 Intake and Output: 12/12/17 12/13/17 18:59 06:59 Intake Total 2186 1888 Output Total 700 1500 Balance 1486 388 - Medications Medications: Current Medications Acetaminophen (Tylenol 325mg Tab) 650 mg PO Q4H PRN PRN Reason: Fever >100.4 F Last Admin: 12/11/17 09:39 Dose: 650 mg Alprazolam (Xanax) 0.5 mg PO TID PRN; Protocol PRN Reason: Anxiety Last Admin: 12/12/17 23:12 Dose: 0.5 mg Aspirin (Ecotrin) 81 mg PO DAILY [facility] Last Admin: 12/12/17 10:23 Dose: 81 mg Cyanocobalamin (Vitamin B12 1000 Mcg Tab) 1,000 mcg PO DAILY [facility] Last Admin: 12/12/17 10:23 Dose: 1,000 mcg Docusate Sodium (Colace) 100 mg PO BID [facility] Last Admin: 12/12/17 17:16 Dose: 100 mg Doxycycline Hyclate (Doryx) 100 mg PO Q12 [facility] PRN Reason: Protocol Stop: 12/17/17 10:01 Last Admin: 12/12/17 21:11 Dose: 100 mg Ferrous Sulfate (Feosol) 324 mg PO TID [facility] Last Admin: 12/12/17 13:33 Dose: 324 mg Heparin Sodium/Sodium Chloride (Heparin 60762 Units/250ml 1/2 Normal Saline) 25 ,000 units in 250 mls @ 16.901 mls/hr IV .[id number] PRN; Protocol; 18 UNITS/KG/HR PRN Reason: ADJUST RATE PER PROTOCOL Last Admin: 12/12/17 20:54 Dose: 14 units/kg/hr, 13.145 mls/hr Sodium Chloride (Sodium Chloride 0.9%) 1,000 mls @ 125 mls/hr IV .Q8H [facility] Last Admin: 12/12/17 08:49 Dose: 125 mls/hr Ibuprofen (Motrin Tab) 600 mg PO Q6H PRN PRN Reason: Pain, moderate (4-7) Last Admin: 12/11/17 22:40 Dose: 600 mg Multivitamins/Minerals (Therapeutic-M Tab) 1 tab PO 0800 [facility] Last Admin: 12/12/17 11:03 Dose: 1 tab Pantoprazole Sodium (Protonix Ec Tab) 40 mg PO 0600 [facility] Last Admin: 12/12/17 05:26 Dose: 40 mg Polyethylene Glycol (Miralax) 17 gm PO DAILY [facility] Last Admin: 12/12/17 10:23 Dose: 17 gm Zaleplon (Sonata) 5 mg PO HS PRN PRN Reason: Insomnia - Labs Labs: 12/13/17 05:20 12/12/17 05:00 PT 17.3 SECONDS (9.4-12.5) H 12/10/17 19:45 INR 1.50 (0.93-1.08) H 12/10/17 19:45 APTT 63.0 Seconds (25.1-36.5) H 12/13/17 05:20 - Constitutional Appears: Chronically Ill - Head Exam Head Exam: NORMAL INSPECTION - ENT Exam ENT Exam: Mucous Membranes Moist - Neck Exam Neck Exam: absent: Meningismus - Respiratory Exam Respiratory Exam: Decreased Breath Sounds - Cardiovascular Exam Cardiovascular Exam: +S1, +S2 - GI/Abdominal Exam GI & Abdominal Exam: Soft. absent: Tenderness Assessment and Plan - Assessment and Plan (Free Text) Plan: Assessment Severe sepsis with hypoxic respiratory failure due to right sided atypical HCAP on top of right sided pulmonary emboli ovarian cysts history of fracture of right patella history of community-acquired pneumonia obesity with BMI 31 Plan cultures have been negative, 2 PCT levels are normal, urine Legionella Ag is negative; rapid flu test is negative; will continue doxycycline for 4 more days follow up hypercoagulable work up; patient is on Heparin Follow up HIV test will continue to monitor clinically
--- NOTE | 2017-12-13 17:36 | CON ---
DATE: 12/13/2017 CARDIOLOGY CONSULTATION HISTORY OF PRESENT ILLNESS: The patient is a 27-year-old woman who presents with dyspnea. She was found to have a saddle embolus. Echocardiogram on presentation revealed an EF of 50% with evidence for RV strain. There was mild pulmonary hypertension. The patient has no previous medical history. There was no travel history. She does not smoke and she does not take control pills. She is free of diabetes mellitus or hypertension. No previous cardiac history is known. REVIEW OF SYSTEMS: A 14-point review of systems was reviewed in detail. Other than the dyspnea, there were no other cardiac symptomatology. PHYSICAL EXAMINATION VITAL SIGNS: Blood pressure is 104/63, the heart rate is sinus tachycardia at 115. NECK: Negative JVD. LUNGS: Without rales. HEART: S1 and S2. EXTREMITIES: Without edema. LABORATORY DATA: Hemoglobin is 10.0. BUN and creatinine are unremarkable. Troponin is 0.1 x3. The PTT is 63. IMPRESSION AND PLAN: 1. Acute pulmonary embolism. 2. Dyspnea. 3. Sinus tachycardia. 4. Anemia. 5. Mild pulmonary hypertension. 6. Right ventricular strain. Given these findings, the findings of RV strain would have made the patient eligible for possible thrombolysis on admission. However, it is now 3 days after her initial event. Thrombolysis would have a little benefit at this time. We will continue long-term anticoagulation. An investigation to hypercoagulable state would be appropriate. Aniket Palomo MD
[2017-12-13] MEDS: Heparin25000 units/250ml 1/2NS 25,000 UNITS/250 ML BAG IV PRN (19:43)
[2017-12-14 01:24] LABS: THROMBIN CLOTTING TIME 79 sec (13-19)
[2017-12-14] MEDS: Pantoprazole 40 mg EC Tab PO SCH (05:08)
[2017-12-14 07:00] LABS: BASO # 0.04 K/mm3 (0.0-2.0); BASO % 0.5 % (0.0-3.0); EOS # 0.2 (0.0-0.7); EOS % 2.8 % (1.5-5.0); GRAN # 5.26 (1.4-6.5); GRAN % 67.5 % (50.0-68.0); HEMOGLOBIN 10.1 g/dL (12.0-16.0); LYMPH # 1.7 (1.2-3.4); LYMPH % 21.5 % (22.0-35.0); MEAN CORPUSCULAR HEMOGLOBIN 36.1 pg (25.0-35.0); MEAN CORPUSCULAR HGB CONC 32.8 g/dl (31.0-37.0); MEAN PLATELET VOLUME 9.3 fl (7.0-11.0); MONO # 0.6 (0.1-0.6); MONO % 7.7 % (1.0-6.0); RBC 2.8 10^6/uL (3.5-6.1); RED CELL DISTRIBUTION WIDTH 13.8 % (11.5-14.5); WHITE BLOOD COUNT 7.8 10^3/ul (4.5-11.0)
[2017-12-14 07:14] LABS: ALB/GLOB RATIO 1.2 (1.1-1.8); ALBUMIN 3.8 g/dL (3.0-4.8); ALT/SGPT 91 U/L (7-56); AST/SGOT 51 U/L (14-36); BLOOD UREA NITROGEN 11 mg/dL (7-21); CALCIUM 9.9 mg/dL (8.4-10.5); GFR AFRICAN-AMERICAN > 60; GFR NON-AFRICAN AMERICAN > 60
[2017-12-14] MEDS: Multivitamin With Minerals Tab PO SCH (08:21)
[2017-12-14] MEDS: POLYETHYLENE GLYCOL 3350 17 GM/Dose PACKET PO SCH (09:49)
[2017-12-14] MEDS: Heparin25000 units/250ml 1/2NS 25,000 UNITS/250 ML BAG IV PRN (14:12)
--- NOTE | 2017-12-14 14:28 | CP.PCM.PN ---
<AmariFarhanstefanie - Last Filed: 12/14/17 16:10> Subjective - Date & Time of Evaluation Date of Evaluation: 12/14/17 Time of Evaluation: 07:30 - Subjective Subjective: Ava Fitzpatrick DO PGY1 - IM Progress Note Patient seen and examined at bedside. No acute events overnight. Patient had difficulty standing/walking with PT yesterday, though was able to walk with assisstance today with PT. She is still having low back pain. She denies any chest pain, shortness of breath, abdominal pain, fever, chills. She is still somewhat anxious, which is her baseline. Objective - Vital Signs/Intake and Output Vital Signs (last 24 hours): Temp Pulse Resp BP Pulse Ox 98 F 110 H 16 117/66 98 12/14/17 04:00 12/14/17 12:00 12/14/17 12:00 12/14/17 12:00 12/14/17 10:24 Intake and Output: 12/14/17 12/14/17 06:59 18:59 Intake Total 756 250 Balance 756 250 - Medications Medications: Current Medications Acetaminophen (Tylenol 325mg Tab) 650 mg PO Q4H PRN PRN Reason: Fever >100.4 F Last Admin: 12/11/17 09:39 Dose: 650 mg Alprazolam (Xanax) 0.5 mg PO TID PRN; Protocol PRN Reason: Anxiety Last Admin: 12/12/17 23:12 Dose: 0.5 mg Aspirin (Ecotrin) 81 mg PO DAILY [facility] Last Admin: 12/14/17 09:48 Dose: 81 mg Cyanocobalamin (Vitamin B12 1000 Mcg Tab) 1,000 mcg PO DAILY [facility] Last Admin: 12/14/17 09:48 Dose: 1,000 mcg Docusate Sodium (Colace) 100 mg PO BID [facility] Last Admin: 12/14/17 09:48 Dose: 100 mg Doxycycline Hyclate (Doryx) 100 mg PO Q12 [facility] PRN Reason: Protocol Stop: 12/17/17 10:01 Last Admin: 12/14/17 09:49 Dose: 100 mg Ferrous Sulfate (Feosol) 324 mg PO TID [facility] Last Admin: 12/14/17 14:04 Dose: 324 mg Heparin Sodium/Sodium Chloride (Heparin 78575 Units/250ml 1/2 Normal Saline) 25 ,000 units in 250 mls @ 16.901 mls/hr IV .[id number] PRN; Protocol; 18 UNITS/KG/HR PRN Reason: ADJUST RATE PER PROTOCOL Last Admin: 12/14/17 14:12 Dose: 14 units/kg/hr, 13.145 mls/hr Ibuprofen (Motrin Tab) 600 mg PO Q6H PRN PRN Reason: Pain, moderate (4-7) Last Admin: 12/11/17 22:40 Dose: 600 mg Multivitamins/Minerals (Therapeutic-M Tab) 1 tab PO 0800 [facility] Last Admin: 12/14/17 08:21 Dose: 1 tab Pantoprazole Sodium (Protonix Ec Tab) 40 mg PO 0600 [facility] Last Admin: 12/14/17 05:08 Dose: 40 mg Polyethylene Glycol (Miralax) 17 gm PO DAILY [facility] Last Admin: 12/14/17 09:49 Dose: Not Given Zaleplon (Sonata) 5 mg PO HS PRN PRN Reason: Insomnia - Labs Labs: 12/14/17 05:50 12/14/17 05:50 PT 17.3 SECONDS (9.4-12.5) H 12/10/17 19:45 INR 1.50 (0.93-1.08) H 12/10/17 19:45 APTT 72.9 Seconds (25.1-36.5) H 12/14/17 09:30 - Constitutional Appears: Non-toxic, No Acute Distress - Head Exam Head Exam: ATRAUMATIC, NORMOCEPHALIC - Eye Exam Eye Exam: EOMI, Normal appearance, PERRL - ENT Exam ENT Exam: Mucous Membranes Moist - Neck Exam Neck Exam: Normal Inspection - Respiratory Exam Respiratory Exam: Clear to Ausculation Bilateral, NORMAL BREATHING PATTERN - Cardiovascular Exam Cardiovascular Exam: Tachycardia (~100), REGULAR RHYTHM, +S1, +S2 - GI/Abdominal Exam GI & Abdominal Exam: Soft, Normal Bowel Sounds. absent: Tenderness - Extremities Exam Extremities Exam: absent: Calf Tenderness, Pedal Edema Additional comments: Fullness of right calf, unchanged from prior exams - Neurological Exam Neurological Exam: Alert, Awake, Oriented x3 Neuro motor strength exam: Left Upper Extremity: 5, Right Upper Extremity: 5, Left Lower Extremity: 4, Right Lower Extremity: 4 Additional comments: gait not assessed - Psychiatric Exam Psychiatric exam: Normal Affect, Normal Mood - Skin Skin Exam: Dry, Intact, Normal Color Assessment and Plan - Assessment and Plan (Free Text) Assessment: 27 year old female with past medical history of ovarian cysts who was admitted for evaluation and treatment of cough with blood tinged sputum production. Admitted to ICU and being treated for unprovoked first pulmonary embolus ( saddle embolus), RLE DVT and a pneumonia. Patient is on heparin drip, and will need to be started on long-term anticoagulantion per Heme recommendations. She is hemodynamically stable and is getting out of bed to chair as tolerated and improving her breathing off O2. Patient is anxious at baseline. Plan: 1. Cough/Hemoptysis 2/2 unprovoked DVT/PE - Continue heparin drip; heme recommends Xarelto prior to discharge - Patient is hemodynamically stable; saturating well on RA; at this point, PE severity index is very low - Echo done shows borderline LVEF (50%) and moderately to severely reduced RV systolic function - hypercoagulable workup ordered: Factor V leiden, prothrombin gene mutation pending - Hem/Onc on consult; appreciate recs - Cardio on consult; appreciate recs 2. Community Acquired Pneumonia - IVF NS @ 125 - atypicals- legionella negative, mycoplasma positive, strep negative from previous visit - Continue Doxy 100BID x5 days per ID - encourage incentive spirometer use 3. Anemia - H/H stable for past two days; no signs of active bleeding - Continue B12 supplements - Continue PO iron - will monitor for signs of bleeding, and cont monitoring H/H - LDH high, but retic count low; unlikely to be hemolysis - Requested peripheral smear 4. Elevated LFTs - Improving; likely 2/2 passive congestion in setting of PE - HIV nonreactive - Continue to monitor 5. Abdominal Discomfort; Constipation - Patient having BMs, but still has some mild discomfort - Continue Miralax and Colace 6. Anxiety - cont Xanax 0.5mg PO TID PRN - cont Sonata 5mg HS PRN - Psych consult; appreciate recs - Patient does not meet criteria for inpatient psych unit, but would benefit from from outpatient therapist (per psych recs) 7. Back Pain and Leg Weakness - Likely 2/2 deconditioning vs psychogenic; much less likely to have cord compression - 12/08/[address]- L spine unremarkable; Right lower lobe infiltrate and consolidation suspicious for right lower lobe pneumonia. - Ordered L spine MRI to r/o spinal cord compression - high risk fall precautions - PT/OT evaluation and treatment - out of bed as tolerated - ibuprofen prn pain 8. Prophylaxis - DVT ppx- currently on Heparin drip - GI ppx- protonix PO Patient was seen, examined and discussed with attending, Dr. Duran <Larry Duran - Last Filed: 12/14/17 16:45> Objective - Vital Signs/Intake and Output Vital Signs (last 24 hours): Temp Pulse Resp BP Pulse Ox 98 F 110 H 16 117/66 98 12/14/17 04:00 12/14/17 12:00 12/14/17 12:00 12/14/17 12:00 12/14/17 10:24 Intake and Output: 12/14/17 12/14/17 06:59 18:59 Intake Total 756 250 Balance 756 250 - Medications Medications: Current Medications Acetaminophen (Tylenol 325mg Tab) 650 mg PO Q4H PRN PRN Reason: Fever >100.4 F Last Admin: 12/11/17 09:39 Dose: 650 mg Alprazolam (Xanax) 0.5 mg PO TID PRN; Protocol PRN Reason: Anxiety Last Admin: 12/12/17 23:12 Dose: 0.5 mg Aspirin (Ecotrin) 81 mg PO DAILY [facility] Last Admin: 12/14/17 09:48 Dose: 81 mg Cyanocobalamin (Vitamin B12 1000 Mcg Tab) 1,000 mcg PO DAILY [facility] Last Admin: 12/14/17 09:48 Dose: 1,000 mcg Docusate Sodium (Colace) 100 mg PO BID [facility] Last Admin: 12/14/17 09:48 Dose: 100 mg Doxycycline Hyclate (Doryx) 100 mg PO Q12 [facility] PRN Reason: Protocol Stop: 12/17/17 10:01 Last Admin: 12/14/17 09:49 Dose: 100 mg Ferrous Sulfate (Feosol) 324 mg PO TID [facility] Last Admin: 12/14/17 14:04 Dose: 324 mg Heparin Sodium/Sodium Chloride (Heparin 84756 Units/250ml 1/2 Normal Saline) 25 ,000 units in 250 mls @ 16.901 mls/hr IV .[id number] PRN; Protocol; 18 UNITS/KG/HR PRN Reason: ADJUST RATE PER PROTOCOL Last Admin: 12/14/17 14:12 Dose: 14 units/kg/hr, 13.145 mls/hr Ibuprofen (Motrin Tab) 600 mg PO Q6H PRN PRN Reason: Pain, moderate (4-7) Last Admin: 12/11/17 22:40 Dose: 600 mg Multivitamins/Minerals (Therapeutic-M Tab) 1 tab PO 0800 [facility] Last Admin: 12/14/17 08:21 Dose: 1 tab Pantoprazole Sodium (Protonix Ec Tab) 40 mg PO 0600 [facility] Last Admin: 12/14/17 05:08 Dose: 40 mg Polyethylene Glycol (Miralax) 17 gm PO DAILY [facility] Last Admin: 12/14/17 09:49 Dose: Not Given Zaleplon (Sonata) 5 mg PO HS PRN PRN Reason: Insomnia - Labs Labs: 12/14/17 05:50 12/14/17 05:50 PT 17.3 SECONDS (9.4-12.5) H 12/10/17 19:45 INR 1.50 (0.93-1.08) H 12/10/17 19:45 APTT 72.9 Seconds (25.1-36.5) H 12/14/17 09:30 Attending/Attestation - Attestation I have personally seen and examined this patient.: Yes I have fully participated in the care of the patient.: Yes I have reviewed all pertinent clinical information, including history, physical exam and plan: Yes Notes (Text): I have seen and examined the patient at bedside. Agree with the above note with the following additions/ exceptions: Briefly this is 27 year old female who was admitted with first episode of unprovoked saddle PE and RLE DVT. Patient denies any cough, hemoptysis, chest pain, dyspnea or any other complaints. Reports that her anxiety and leg pain is better however she continue to complain of bilateral leg weakness. MRI of lumbosacral spine will be ordered. Continue IV heparin for now. Will start NOAC tomorrow. Echo revealed ef of 50% and moderately to severely reduced RV systolic function. Cardiology consult appreciated. PESI is class 1 or low risk and sPESI is also 0. Patient also has atypical HCAP on doxycycline. Continue xanax for anxiety. PT recommended acute rehab. Upon discharge the patient will follow-up with PMD Dr Gerda izquierdo. Dr Larry Duran
--- NOTE | 2017-12-14 18:33 | MRI ---
EXAM: MR Lumbar Spine Without Intravenous Contrast EXAM DATE/TIME: 12/14/2017 11:36 AM CLINICAL HISTORY: The patient age is 27 years old and is female; Pain; Low back pain; Patient HX: Lower back pain. Bilateral leg pain and weakness; Additional info: Back pain; Leg weakness Facility exam id and description: Mri spls spinal canal lumbar w/o cont TECHNIQUE: Magnetic resonance images of the lumbar spine without intravenous contrast in multiple planes. COMPARISON: CT - LUMBAR SPINE W/CONTRAST 2017-12-08 02:59 FINDINGS: Vertebrae: 6 [id number] lumbar segments are visualized when correlated with the prior CT, consistent with a transitional S1 vertebral body. Minimal disc bulging is noted diffusely within the lumbar spine. Mild edema is visualized within the psoas muscles posteriorly and bilaterally at the L4 vertebral level. This is likely infectious or inflammatory. The lumbar vertebral bodies are normal in height, without abnormal subluxation. Marrow: There is a diffuse decrease in T1 signal intensity of the bone marrow of the visualized lumbosacral spine and lower thoracic spine. No STIR hyperintense osseous mass is visualized. This is consistent with a nonspecific increase in the cerebellar content of the marrow or red marrow reconversion. Epidural space: No epidural fluid collection is visualized. Spinal cord: The distal end of the conus medullaris ends at L2, which is at the low end of normal. Soft tissues: See above. Edema is seen within the subcutaneous tissues posterior to the lumbar spine and lower thoracic spine. DISCS/SPINAL CANAL/NEURAL FORAMINA: L1-L2: There is no significant narrowing of the thecal sac or neural foramina. L2-L3: There is no significant narrowing of the thecal sac or neural foramina. L3-L4: There is no significant narrowing of the thecal sac or neural foramina. L4-L5: There is no significant narrowing of the thecal sac or neural foramina. L5-S1: There is minimal disc bulging without significant narrowing of the thecal sac. Mild facet arthropathy is visualized. There is no significant neural foraminal narrowing. IMPRESSION: 1. 6 [id number] lumbar segments are visualized when correlated with the prior CT, consistent with a transitional S1 vertebral body. 2. Minimal disc bulging is noted diffusely within the lumbar spine. There is no posterior disc herniation or significant narrowing of the thecal sac at any lumbar level. 3. There is a diffuse decrease in T1 signal intensity of the bone marrow of the visualized lumbosacral spine and lower thoracic spine. This is consistent with a nonspecific increase in the cerebellar content of the marrow or red marrow reconversion. 4. Mild edema is visualized within the psoas muscles posteriorly and bilaterally at the L4 vertebral level. This is likely infectious or inflammatory.
--- NOTE | 2017-12-14 20:43 | PN ---
DATE: 12/14/2017 SUBJECTIVE: Patient is in bed, in no acute distress. PHYSICAL EXAMINATION: VITAL SIGNS: Temperature is 98, blood pressure is 117/60, respiratory rate of 18. HEENT: Unremarkable. NECK: Supple. LUNGS: Have decreased breath sounds. HEART: Normal S1 and S2. ABDOMEN: Soft and nontender. LABORATORY EXAMINATION: Reveals a white count of 7.8, hemoglobin of 10, platelets of 394. BUN of 11, creatinine of 0.7, procalcitonin 0.14. Urinalysis as noted. Immunology as noted and serology is HIV is negative. Influenza is negative. Microbiology reveals the cultures are negative. Patient had an MRI of the spine, results are noted. ASSESSMENT AND PLAN: A 27-year-old female with severe sepsis with hypoxic respiratory failure due to right-sided atypical healthcare-associated pneumonia on top of the right-sided pulmonary emboli, ovarian cyst, history of fracture of the right patella, history of community-acquired pneumonia, obesity with body mass index of 31 and cultures have been negative. Patient's serology is negative. Human immunodeficiency virus is nonreactive, on doxycycline. We will follow with you. Nikhil Gonzalez MD
[2017-12-15] MEDS: Heparin25000 units/250ml 1/2NS 25,000 UNITS/250 ML BAG IV PRN (05:05)
[2017-12-15] MEDS: Pantoprazole 40 mg EC Tab PO SCH (06:30)
[2017-12-15 07:13] LABS: BASO # 0.05 K/mm3 (0.0-2.0); BASO % 0.6 % (0.0-3.0); EOS # 0.3 (0.0-0.7); EOS % 3.1 % (1.5-5.0); GRAN # 5.72 (1.4-6.5); GRAN % 68.1 % (50.0-68.0); HEMOGLOBIN 9.9 g/dL (12.0-16.0); LYMPH # 1.6 (1.2-3.4); LYMPH % 18.5 % (22.0-35.0); MEAN CELL VOLUME 109.8 fl (80.0-105.0); MEAN CORPUSCULAR HGB CONC 32.8 g/dl (31.0-37.0); MEAN PLATELET VOLUME 9.4 fl (7.0-11.0); MONO # 0.8 (0.1-0.6); MONO % 9.7 % (1.0-6.0); RBC 2.75 10^6/uL (3.5-6.1); RED CELL DISTRIBUTION WIDTH 14.1 % (11.5-14.5); WHITE BLOOD COUNT 8.4 10^3/ul (4.5-11.0)
[2017-12-15 07:34] LABS: ALB/GLOB RATIO 1.1 (1.1-1.8); ALBUMIN 3.7 g/dL (3.0-4.8); ALT/SGPT 79 U/L (7-56); AST/SGOT 51 U/L (14-36); BLOOD UREA NITROGEN 11 mg/dL (7-21); CALCIUM 9.8 mg/dL (8.4-10.5); GFR AFRICAN-AMERICAN > 60; GFR NON-AFRICAN AMERICAN > 60
[2017-12-15] MEDS: Multivitamin With Minerals Tab PO SCH (08:45)
[2017-12-15] MEDS: POLYETHYLENE GLYCOL 3350 17 GM/Dose PACKET PO SCH ×2 (09:34→18:02)
--- NOTE | 2017-12-15 17:19 | CP.PCM.PN ---
<Ava Fitzpatrick - Last Filed: 12/15/17 17:15> Subjective - Date & Time of Evaluation Date of Evaluation: 12/15/17 Time of Evaluation: 07:30 - Subjective Subjective: Ava Amari DO PGY1 - IM Progress Note Patient seen and examined at bedside. No acute events overnight. Patient was able to walk with PT yesterday, though she still feels weak. She reports some constipation, which she has at baseline. Last BM was two days ago. She denies any abominal pain, nausea, vomiting. She also denies any chest pain, palpitations, shortness of breath, cough, or hemoptysis. Objective - Vital Signs/Intake and Output Vital Signs (last 24 hours): Temp Pulse Resp BP Pulse Ox 98.1 F 116 H 22 129/87 97 12/15/17 12:00 12/15/17 16:17 12/15/17 16:17 12/15/17 16:17 12/15/17 10:00 Intake and Output: 12/15/17 12/15/17 06:59 18:59 Intake Total 2110 Output Total 900 Balance 1210 - Medications Medications: Current Medications Acetaminophen (Tylenol 325mg Tab) 650 mg PO Q4H PRN PRN Reason: Fever >100.4 F Last Admin: 12/11/17 09:39 Dose: 650 mg Alprazolam (Xanax) 0.5 mg PO TID PRN; Protocol PRN Reason: Anxiety Last Admin: 12/12/17 23:12 Dose: 0.5 mg Aspirin (Ecotrin) 81 mg PO DAILY [facility] Last Admin: 12/15/17 09:30 Dose: 81 mg Cyanocobalamin (Vitamin B12 1000 Mcg Tab) 1,000 mcg PO DAILY [facility] Last Admin: 12/15/17 09:30 Dose: 1,000 mcg Docusate Sodium (Colace) 100 mg PO BID [facility] Last Admin: 12/15/17 17:14 Dose: 100 mg Ferrous Sulfate (Feosol) 324 mg PO TID [facility] Last Admin: 12/15/17 17:14 Dose: 324 mg Ibuprofen (Motrin Tab) 600 mg PO Q6H PRN PRN Reason: Pain, moderate (4-7) Last Admin: 12/11/17 22:40 Dose: 600 mg Multivitamins/Minerals (Therapeutic-M Tab) 1 tab PO 0800 [facility] Last Admin: 12/15/17 08:45 Dose: 1 tab Pantoprazole Sodium (Protonix Ec Tab) 40 mg PO 0600 [facility] Last Admin: 12/15/17 06:30 Dose: 40 mg Polyethylene Glycol (Miralax) 17 gm PO DAILY [facility] Last Admin: 12/15/17 09:34 Dose: 17 gm Rivaroxaban (Xarelto) 15 mg PO BID [facility] PRN Reason: Protocol Last Admin: 12/15/17 09:34 Dose: 15 mg Zaleplon (Sonata) 5 mg PO PRN PRN Reason: Insomnia - Labs Labs: 12/15/17 05:30 12/15/17 05:30 PT 17.3 SECONDS (9.4-12.5) H 12/10/17 19:45 INR 1.50 (0.93-1.08) H 12/10/17 19:45 APTT 61.4 Seconds (25.1-36.5) H 12/15/17 05:30 - Constitutional Appears: Non-toxic, No Acute Distress - Head Exam Head Exam: ATRAUMATIC, NORMOCEPHALIC - Eye Exam Eye Exam: EOMI, Normal appearance, PERRL - ENT Exam ENT Exam: Mucous Membranes Moist - Neck Exam Neck Exam: Normal Inspection - Respiratory Exam Respiratory Exam: Clear to Ausculation Bilateral, NORMAL BREATHING PATTERN - Cardiovascular Exam Cardiovascular Exam: Tachycardia, REGULAR RHYTHM, +S1, +S2 - GI/Abdominal Exam GI & Abdominal Exam: Soft, Normal Bowel Sounds. absent: Distended, Firm, Guarding, Rigid, Tenderness - Extremities Exam Extremities Exam: absent: Calf Tenderness, Pedal Edema - Neurological Exam Neurological Exam: Alert, Awake, Oriented x3 - Psychiatric Exam Psychiatric exam: Normal Affect, Normal Mood - Skin Skin Exam: Dry, Intact, Normal Color Assessment and Plan - Assessment and Plan (Free Text) Assessment: 27 year old female with past medical history of ovarian cysts who was admitted for evaluation and treatment of cough with blood tinged sputum production. Currently being treated for unprovoked first pulmonary embolus (saddle embolus) , RLE DVT and a pneumonia. Patient is on heparin drip, switching to NOAC today. She is hemodynamically stable and is getting out of bed to chair as tolerated and improving her breathing off O2. Patient is anxious at baseline. Plan: 1. Cough/Hemoptysis 2/2 unprovoked DVT/PE - Will start Xarelto and discontinue heparin - Patient is hemodynamically stable; saturating well on RA; at this point, PE severity index is very low - hypercoagulable workup ordered: Factor V leiden and prothrombin gene mutation negative - Hem/Onc on consult; appreciate recs - Cardio on consult; appreciate recs 2. Community Acquired Pneumonia - IVF NS @ 125 - Mycoplasma positive - Continue Doxy 100BID x5 days per ID - encourage incentive spirometer use 3. Anemia - H/H stable; no signs of active bleeding - Continue B12 supplements - Continue PO iron - Requested peripheral smear 4. Elevated LFTs - Improving; likely 2/2 passive congestion in setting of PE - Continue to monitor 5. Abdominal Discomfort; Constipation - Last BM 2 days ago - Continue Colace; increase Miralax to BID 6. Anxiety - cont Xanax 0.5mg PO TID PRN - cont Sonata 5mg HS PRN - Psych consult; appreciate recs - Patient does not meet criteria for inpatient psych unit, but would benefit from from outpatient therapist (per psych recs) 7. Back Pain and Leg Weakness - Likely 2/2 deconditioning vs psychogenic; much less likely to have cord compression - L spine MRI done yesterday; unremarkable - high risk fall precautions - PT/OT evaluation and treatment - out of bed as tolerated - ibuprofen prn pain 8. Prophylaxis - DVT ppx- currently on Heparin drip; switch to Xarelto today - GI ppx- protonix PO Patient was seen, examined and discussed with attending, Dr. Duran <Larry Duran - Last Filed: 12/16/17 19:04> Objective - Vital Signs/Intake and Output Vital Signs (last 24 hours): Temp Pulse Resp BP Pulse Ox 97.8 F 112 H 39 H 105/66 97 12/16/17 16:00 12/16/17 17:13 12/16/17 16:45 12/16/17 08:30 12/16/17 16:00 Intake and Output: 12/16/17 12/17/17 18:59 06:59 Intake Total 720 Output Total 1150 Balance -430 - Medications Medications: Current Medications Acetaminophen (Tylenol 325mg Tab) 650 mg PO Q4H PRN PRN Reason: Fever >100.4 F Last Admin: 12/11/17 09:39 Dose: 650 mg Alprazolam (Xanax) 0.5 mg PO TID PRN; Protocol PRN Reason: Anxiety Last Admin: 12/12/17 23:12 Dose: 0.5 mg Aspirin (Ecotrin) 81 mg PO DAILY [facility] Last Admin: 12/16/17 10:09 Dose: 81 mg Cyanocobalamin (Vitamin B12 1000 Mcg Tab) 1,000 mcg PO DAILY [facility] Last Admin: 12/16/17 10:09 Dose: 1,000 mcg Docusate Sodium (Colace) 100 mg PO BID [facility] Last Admin: 12/16/17 17:21 Dose: 100 mg Ferrous Sulfate (Feosol) 324 mg PO TID [facility] Last Admin: 12/16/17 17:21 Dose: 324 mg Ibuprofen (Motrin Tab) 600 mg PO Q6H PRN PRN Reason: Pain, moderate (4-7) Last Admin: 12/11/17 22:40 Dose: 600 mg Multivitamins/Minerals (Therapeutic-M Tab) 1 tab PO 0800 [facility] Last Admin: 12/16/17 10:09 Dose: 1 tab Pantoprazole Sodium (Protonix Ec Tab) 40 mg PO 0600 [facility] Last Admin: 12/16/17 06:34 Dose: 40 mg Polyethylene Glycol (Miralax) 17 gm PO BID [facility] Last Admin: 12/16/17 17:15 Dose: Not Given Rivaroxaban (Xarelto) 15 mg PO BID [facility] PRN Reason: Protocol Last Admin: 12/16/17 17:22 Dose: 15 mg Zaleplon (Sonata) 5 mg PO HS PRN PRN Reason: Insomnia - Labs Labs: 12/16/17 05:50 12/16/17 05:50 PT 17.3 SECONDS (9.4-12.5) H 12/10/17 19:45 INR 1.50 (0.93-1.08) H 12/10/17 19:45 APTT 61.4 Seconds (25.1-36.5) H 12/15/17 05:30 Attending/Attestation - Attestation I have personally seen and examined this patient.: Yes I have fully participated in the care of the patient.: Yes I have reviewed all pertinent clinical information, including history, physical exam and plan: Yes Notes (Text): I have seen and examined the patient at bedside. Agree with the above note with the following additions/ exceptions: Briefly this is 27 year old female who was admitted with first episode of unprovoked saddle PE and RLE DVT. Patient denies any cough, hemoptysis, chest pain, dyspnea or any other complaints. Reports that her anxiety and leg pain is better however she continue to complain of bilateral leg weakness. MRI of lumbosacral spine pending. Continue IV heparin for now. Will start NOAC today. Echo revealed ef of 50% and moderately to severely reduced RV systolic function. Cardiology consult appreciated. PESI is class 1 or low risk and sPESI is also 0. Patient also has atypical HCAP on doxycycline. Encourage incentive spirometer. Continue xanax for anxiety. PT recommended acute rehab. Upon discharge the patient will follow-up with PMD Dr Gerda izquierdo. Dr Larry Duran
--- NOTE | 2017-12-15 22:05 | PN ---
DATE: 12/15/2017 SUBJECTIVE: The patient is seen in bed, in no acute distress, nontoxic. PHYSICAL EXAMINATION: VITAL SIGNS: The patient's temperature is 98, blood pressure is 140/60, respiratory rate of 18, heart rate of 105. HEENT: Unremarkable. NECK: Supple. LUNGS: Decreased breath sounds. HEART: Normal S1, S2. ABDOMEN: Soft. LABORATORY DATA: Reveals a white count of 8.4, hemoglobin of 9, platelets of 417. Chemistries reveal a BUN of 11, creatinine of 0.7, procalcitonin is 0.14. Urinalysis as noted. HIV is negative. Influenza is negative. Urine for Legionella antigen is negative. MEDICATIONS: Review of orders noted to have the patient on doxycycline. ASSESSMENT AND PLAN: This is a 27-year-old female with past medical history noncontributory, who is admitted with severe sepsis, hypoxic respiratory failure due to pulmonary emboli and the patient with ovarian cyst, history of fracture of the right patella, history of community-acquired pneumonia, obesity, body mass index of 31. The patient with healthcare-associated pneumonia versus atypical. We will discontinue doxycycline. No further antibiotics needed. The patient has done well; however, the patient is at risk for developing nosocomial infection, currently off of antibiotics. Nikhil Gonzalez MD
[2017-12-16 06:21] LABS: BASO # 0.06 K/mm3 (0.0-2.0); BASO % 0.8 % (0.0-3.0); EOS # 0.2 (0.0-0.7); EOS % 2.7 % (1.5-5.0); GRAN # 4.93 (1.4-6.5); GRAN % 63.4 % (50.0-68.0); HEMOGLOBIN 9.5 g/dL (12.0-16.0); LYMPH # 1.7 (1.2-3.4); LYMPH % 21.4 % (22.0-35.0); MEAN CELL VOLUME 111.7 fl (80.0-105.0); MEAN CORPUSCULAR HGB CONC 32.2 g/dl (31.0-37.0); MEAN PLATELET VOLUME 9.1 fl (7.0-11.0); MONO # 0.9 (0.1-0.6); MONO % 11.7 % (1.0-6.0); RBC 2.64 10^6/uL (3.5-6.1); RED CELL DISTRIBUTION WIDTH 14.5 % (11.5-14.5); WHITE BLOOD COUNT 7.8 10^3/ul (4.5-11.0)
[2017-12-16] MEDS: Pantoprazole 40 mg EC Tab PO SCH (06:34)
[2017-12-16 07:28] LABS: ALB/GLOB RATIO 1.3 (1.1-1.8); ALBUMIN 3.5 g/dL (3.0-4.8); ALT/SGPT 67 U/L (7-56); AST/SGOT 57 U/L (14-36); BLOOD UREA NITROGEN 12 mg/dL (7-21); CALCIUM 9.5 mg/dL (8.4-10.5); GFR AFRICAN-AMERICAN > 60; GFR NON-AFRICAN AMERICAN > 60
[2017-12-16] MEDS: POLYETHYLENE GLYCOL 3350 17 GM/Dose PACKET PO SCH ×2 (10:08→17:15)
[2017-12-16] MEDS: Multivitamin With Minerals Tab PO SCH (10:09)
--- NOTE | 2017-12-16 10:38 | CP.PCM.PN ---
Subjective - Date & Time of Evaluation Date of Evaluation: 12/16/17 Time of Evaluation: 09:50 - Subjective Subjective: Still having weakness with ambulation, no fevers overnight, not in distress. Objective - Vital Signs/Intake and Output Vital Signs (last 24 hours): Temp Pulse Resp BP Pulse Ox 97.4 F L 109 H 17 78/52 L 83 L 12/16/17 06:00 12/16/17 06:15 12/16/17 06:15 12/16/17 06:00 12/16/17 06:15 Intake and Output: 12/15/17 12/16/17 18:59 06:59 Intake Total 639 Output Total 1200 Balance -561 - Medications Medications: Current Medications Acetaminophen (Tylenol 325mg Tab) 650 mg PO Q4H PRN PRN Reason: Fever >100.4 F Last Admin: 12/11/17 09:39 Dose: 650 mg Alprazolam (Xanax) 0.5 mg PO TID PRN; Protocol PRN Reason: Anxiety Last Admin: 12/12/17 23:12 Dose: 0.5 mg Aspirin (Ecotrin) 81 mg PO DAILY [facility] Last Admin: 12/15/17 09:30 Dose: 81 mg Cyanocobalamin (Vitamin B12 1000 Mcg Tab) 1,000 mcg PO DAILY [facility] Last Admin: 12/15/17 09:30 Dose: 1,000 mcg Docusate Sodium (Colace) 100 mg PO BID [facility] Last Admin: 12/15/17 17:14 Dose: 100 mg Ferrous Sulfate (Feosol) 324 mg PO TID [facility] Last Admin: 12/15/17 17:14 Dose: 324 mg Ibuprofen (Motrin Tab) 600 mg PO Q6H PRN PRN Reason: Pain, moderate (4-7) Last Admin: 12/11/17 22:40 Dose: 600 mg Multivitamins/Minerals (Therapeutic-M Tab) 1 tab PO 0800 [facility] Last Admin: 12/15/17 08:45 Dose: 1 tab Pantoprazole Sodium (Protonix Ec Tab) 40 mg PO 0600 [facility] Last Admin: 12/15/17 06:30 Dose: 40 mg Polyethylene Glycol (Miralax) 17 gm PO BID [facility] Last Admin: 12/15/17 18:02 Dose: 17 gm Rivaroxaban (Xarelto) 15 mg PO BID [facility] PRN Reason: Protocol Last Admin: 12/15/17 18:04 Dose: 15 mg Zaleplon (Sonata) 5 mg PO HS PRN PRN Reason: Insomnia - Labs Labs: 12/15/17 05:30 12/15/17 05:30 PT 17.3 SECONDS (9.4-12.5) H 12/10/17 19:45 INR 1.50 (0.93-1.08) H 12/10/17 19:45 APTT 61.4 Seconds (25.1-36.5) H 12/15/17 05:30 - Constitutional Appears: Chronically Ill - Head Exam Head Exam: NORMAL INSPECTION - Respiratory Exam Respiratory Exam: Decreased Breath Sounds - Cardiovascular Exam Cardiovascular Exam: +S1, +S2 - GI/Abdominal Exam GI & Abdominal Exam: Soft. absent: Tenderness Assessment and Plan - Assessment and Plan (Free Text) Plan: Assessment Severe sepsis with hypoxic respiratory failure due to right sided pulmonary emboli S/P treatment for atypical HCAP ovarian cysts history of fracture of right patella history of community-acquired pneumonia obesity with BMI 31 Plan cultures have been negative, 2 PCT levels are normal, urine Legionella Ag is negative; rapid flu test is negative; will continue to monitor off antibiotics since she is at risk for nosocomial infections follow up hypercoagulable work up; patient is on Heparin HIV test is non-reactive will continue to monitor clinically reviewed lumbar MRI - non-specific finding on psoas muscles - should be monitored
--- NOTE | 2017-12-16 18:50 | CP.PCM.PN ---
<Ava Fitzpatrick - Last Filed: 12/16/17 18:47> Subjective - Date & Time of Evaluation Date of Evaluation: 12/16/17 Time of Evaluation: 07:30 - Subjective Subjective: Ava Fitzpatrick DO PGY1 - IM Progress Note Patient seen and examined at bedside. No acute events overnight. Patient reports one episode of blood tinged sputum overnight. No hematemesis. She denies chest pain, palpitations, or shortness of breath. She denies a cough, reports only waking up, clearing her throat, and spitting up blood tinged sputum. Patient reports improvement in her ability to ambulate, still doing exercises in bed, but still having difficulty even going to bedside commode. She denies any abominal pain, nausea, vomiting. Objective - Vital Signs/Intake and Output Vital Signs (last 24 hours): Temp Pulse Resp BP Pulse Ox 97.8 F 112 H 39 H 105/66 97 12/16/17 16:00 12/16/17 17:13 12/16/17 16:45 12/16/17 08:30 12/16/17 16:00 Intake and Output: 12/16/17 12/16/17 06:59 18:59 Intake Total 720 Output Total 1150 Balance -430 - Medications Medications: Current Medications Acetaminophen (Tylenol 325mg Tab) 650 mg PO Q4H PRN PRN Reason: Fever >100.4 F Last Admin: 12/11/17 09:39 Dose: 650 mg Alprazolam (Xanax) 0.5 mg PO TID PRN; Protocol PRN Reason: Anxiety Last Admin: 12/12/17 23:12 Dose: 0.5 mg Aspirin (Ecotrin) 81 mg PO DAILY [facility] Last Admin: 12/16/17 10:09 Dose: 81 mg Cyanocobalamin (Vitamin B12 1000 Mcg Tab) 1,000 mcg PO DAILY [facility] Last Admin: 12/16/17 10:09 Dose: 1,000 mcg Docusate Sodium (Colace) 100 mg PO BID [facility] Last Admin: 12/16/17 17:21 Dose: 100 mg Ferrous Sulfate (Feosol) 324 mg PO TID [facility] Last Admin: 12/16/17 17:21 Dose: 324 mg Ibuprofen (Motrin Tab) 600 mg PO Q6H PRN PRN Reason: Pain, moderate (4-7) Last Admin: 12/11/17 22:40 Dose: 600 mg Multivitamins/Minerals (Therapeutic-M Tab) 1 tab PO 0800 [facility] Last Admin: 12/16/17 10:09 Dose: 1 tab Pantoprazole Sodium (Protonix Ec Tab) 40 mg PO 0600 [facility] Last Admin: 12/16/17 06:34 Dose: 40 mg Polyethylene Glycol (Miralax) 17 gm PO BID [facility] Last Admin: 12/16/17 17:15 Dose: Not Given Rivaroxaban (Xarelto) 15 mg PO BID [facility] PRN Reason: Protocol Last Admin: 12/16/17 17:22 Dose: 15 mg Zaleplon (Sonata) 5 mg PO HS PRN PRN Reason: Insomnia - Labs Labs: 12/16/17 05:50 12/16/17 05:50 PT 17.3 SECONDS (9.4-12.5) H 12/10/17 19:45 INR 1.50 (0.93-1.08) H 12/10/17 19:45 APTT 61.4 Seconds (25.1-36.5) H 12/15/17 05:30 - Constitutional Appears: Non-toxic, No Acute Distress - Head Exam Head Exam: ATRAUMATIC, NORMOCEPHALIC - Eye Exam Eye Exam: EOMI, Normal appearance, PERRL - ENT Exam ENT Exam: Mucous Membranes Moist - Neck Exam Neck Exam: Normal Inspection - Respiratory Exam Respiratory Exam: Clear to Ausculation Bilateral, NORMAL BREATHING PATTERN - Cardiovascular Exam Cardiovascular Exam: Tachycardia, REGULAR RHYTHM, +S1, +S2 - GI/Abdominal Exam GI & Abdominal Exam: Soft, Normal Bowel Sounds. absent: Tenderness - Extremities Exam Extremities Exam: absent: Calf Tenderness, Pedal Edema - Neurological Exam Neurological Exam: Alert, Awake, Oriented x3 Neuro motor strength exam: Left Upper Extremity: 5, Right Upper Extremity: 5, Left Lower Extremity: 4, Right Lower Extremity: 4 - Psychiatric Exam Psychiatric exam: Anxious, Normal Affect - Skin Skin Exam: Dry, Intact, Normal Color Assessment and Plan - Assessment and Plan (Free Text) Assessment: 27 year old female with past medical history of ovarian cysts who was admitted for evaluation and treatment of cough with blood tinged sputum production. Currently being treated for unprovoked first pulmonary embolus (saddle embolus) , RLE DVT and a pneumonia. Patient is on heparin drip, switching to NOAC today. She is hemodynamically stable and is getting out of bed to chair as tolerated; still having significant difficulty with ambulation. Patient is anxious at baseline. Plan: 1. Cough/Hemoptysis 2/2 unprovoked DVT/PE - Continue Xarelto - Patient had episode of blood tinged sputum overnight; H&H stable - Hypercoagulable workup negative; should be repeated as outpatient after 6 months of therapy and confirmed resolution of DVT and PE - Hem/Onc on consult; appreciate recs - Cardio on consult; appreciate recs - signed off 2. Community Acquired Pneumonia - Antibiotic course complete per ID - Procal low - Continue to monitor 3. Anemia - H/H stable; no signs of active bleeding - Continue B12 supplements - Continue PO iron - Requested peripheral smear 4. Elevated LFTs - Improving; likely 2/2 passive congestion in setting of PE - Continue to monitor 5. Abdominal Discomfort; Constipation - Last BM 3 days ago - Continue Colace and Miralax 6. Anxiety - cont Xanax 0.5mg PO TID PRN - cont Sonata 5mg HS PRN - Psych consult; appreciate recs - Patient does not meet criteria for inpatient psych unit, but would benefit from from outpatient therapist (per psych recs) 7. Back Pain and Leg Weakness - Likely 2/2 deconditioning vs psychogenic vs myopathy vs neuropathy - L spine MRI unremarkable - high risk fall precautions - PT/OT evaluation and treatment - Requested neuro consult; appreciate recs 8. Prophylaxis - DVT ppx - Xarelto - GI ppx - protonix PO Patient was seen, examined and discussed with attending, Dr. Duran <Larry Duran B - Last Filed: 12/17/17 14:55> Objective - Vital Signs/Intake and Output Vital Signs (last 24 hours): Temp Pulse Resp BP Pulse Ox 98.7 F 117 H 20 118/63 98 12/17/17 08:20 12/17/17 08:20 12/17/17 08:20 12/17/17 08:20 12/17/17 08:20 Intake and Output: 12/17/17 12/17/17 06:59 18:59 Intake Total 360 Output Total 0 Balance 360 - Medications Medications: Current Medications Acetaminophen (Tylenol 325mg Tab) 650 mg PO Q4H PRN PRN Reason: Fever >100.4 F Last Admin: 12/11/17 09:39 Dose: 650 mg Alprazolam (Xanax) 0.5 mg PO TID PRN; Protocol PRN Reason: Anxiety Last Admin: 12/12/17 23:12 Dose: 0.5 mg Aspirin (Ecotrin) 81 mg PO DAILY [facility] Last Admin: 12/17/17 09:07 Dose: 81 mg Cyanocobalamin (Vitamin B12 1000 Mcg Tab) 1,000 mcg PO DAILY [facility] Last Admin: 12/17/17 09:07 Dose: 1,000 mcg Docusate Sodium (Colace) 100 mg PO BID [facility] Last Admin: 12/17/17 09:07 Dose: 100 mg Ferrous Sulfate (Feosol) 324 mg PO TID [facility] Last Admin: 12/17/17 09:07 Dose: 324 mg Ibuprofen (Motrin Tab) 600 mg PO Q6H PRN PRN Reason: Pain, moderate (4-7) Last Admin: 12/11/17 22:40 Dose: 600 mg Multivitamins/Minerals (Therapeutic-M Tab) 1 tab PO 0800 [facility] Last Admin: 12/17/17 09:09 Dose: 1 tab Pantoprazole Sodium (Protonix Ec Tab) 40 mg PO 0600 [facility] Last Admin: 12/17/17 06:30 Dose: 40 mg Polyethylene Glycol (Miralax) 17 gm PO BID [facility] Last Admin: 12/17/17 09:06 Dose: Not Given Rivaroxaban (Xarelto) 15 mg PO BID [facility] PRN Reason: Protocol Last Admin: 12/17/17 09:07 Dose: 15 mg Zaleplon (Sonata) 5 mg PO HS PRN PRN Reason: Insomnia - Labs Labs: 12/17/17 05:45 12/17/17 05:45 PT 17.3 SECONDS (9.4-12.5) H 12/10/17 19:45 INR 1.50 (0.93-1.08) H 12/10/17 19:45 APTT 61.4 Seconds (25.1-36.5) H 12/15/17 05:30 Attending/Attestation - Attestation I have personally seen and examined this patient.: Yes I have fully participated in the care of the patient.: Yes I have reviewed all pertinent clinical information, including history, physical exam and plan: Yes Notes (Text): I have seen and examined the patient at bedside. Agree with the above note with the following additions/ exceptions: Briefly this is 27 year old female who was admitted with first episode of unprovoked saddle PE and RLE DVT. Patient denies any cough, hemoptysis, chest pain, dyspnea or any other complaints. Reports that her anxiety and leg pain is better however she continues to complain of bilateral leg weakness. MRI of lumbosacral spine reviewed which is unremarkable. Will consult neurology and psych re eval as patient continues to have leg weakness. Xarelto was started today. Echo revealed ef of 50% and moderately to severely reduced RV systolic function. Cardiology consult appreciated. PESI is class 1 or low risk and sPESI is also 0. Antibiotics stopped. Encourage incentive spirometer. Continue xanax for anxiety. PT recommended acute rehab. Upon discharge the patient will follow-up with PMD Dr Gerda izquierdo. Dr Larry Duran
--- NOTE | 2017-12-16 19:23 | CP.PCM.CON ---
History of Present Illness - History of Present Illness History of Present Illness: Neurology Consultation Note: Ms. Perez is a 27-year-old woman who is currently admitted for DVT/PE, and complains of back pain with bilateral lower extremity weakness. Lumbar spine MRI did not show any specific pathology. Neurology was consulted to assist with the management and care. She complains of feeling heaviness in both her legs that starts at the hips. There is pain in the hips and weakness with "shakiness" in her legs. She states that this is improving, but is still concerning. She admits to sometimes also having numbness in the legs, but not currently. Review of Systems - Review of Systems All systems: reviewed and no additional remarkable complaints except Past Patient History - Infectious Disease Hx of Infectious Diseases: None - Tetanus Immunizations Tetanus Immunization: Unknown - Past Social History Smoking Status: Former Smoker - CARDIAC Hx Cardiac Disorders: No - PULMONARY Hx Respiratory Disorders: Yes Hx Pneumonia: Yes - NEUROLOGICAL Hx Neurological Disorder: Yes (numbness to lower extremities) - HEENT Hx HEENT Problems: No - RENAL Hx Chronic Kidney Disease: No - ENDOCRINE/METABOLIC Hx Endocrine Disorders: No - HEMATOLOGICAL/ONCOLOGICAL Hx Blood Disorders: No - INTEGUMENTARY Hx Dermatological Problems: No - MUSCULOSKELETAL/RHEUMATOLOGICAL Hx Musculoskeletal Disorders: Yes Hx Falls: Yes (In ER 12/07/17) - GASTROINTESTINAL Hx Gastrointestinal Disorders: No - GENITOURINARY/GYNECOLOGICAL Hx Genitourinary Disorders: Yes Other/Comment: OVARIAN CYST - PSYCHIATRIC Hx Psychophysiologic Disorder: Yes Hx Anxiety: Yes Hx Substance Use: No - SURGICAL HISTORY Hx Surgeries: Yes ([place] tooth removal) Hx Cardiac Catheterization: No Hx Coronary Stent: No - ANESTHESIA Hx Anesthesia: No Hx Anesthesia Reactions: No Hx Malignant Hyperthermia: No Meds Home Medications: Home Medication List Medication Instructions Recorded Confirmed Type Cyanocobalamin [Vitamin B12 1000 1,000 mcg PO DAILY #30 tab 12/16/17 Rx mcg Tab] Docusate [Colace] 100 mg PO BID #60 cap 12/16/17 Rx Ferrous Sulfate [Feosol] 324 mg PO TID #90 ect 12/16/17 Rx Polyethylene Glycol 3350 [Miralax] 17 gm PO BID #30 packet 12/16/17 Rx Rivaroxaban [Xarelto] 15 mg PO BID #36 tab 12/16/17 Rx Zaleplon [Sonata] 5 mg PO HS PRN #14 cap 12/16/17 Rx Allergies/Adverse Reactions: Allergies Allergy/AdvReac Type Severity Reaction Status Date / Time No Known Allergies Allergy Verified 12/09/17 10:26 - Medications Medications: Current Medications Acetaminophen (Tylenol 325mg Tab) 650 mg PO Q4H PRN PRN Reason: Fever >100.4 F Last Admin: 12/11/17 09:39 Dose: 650 mg Alprazolam (Xanax) 0.5 mg PO TID PRN; Protocol PRN Reason: Anxiety Last Admin: 12/12/17 23:12 Dose: 0.5 mg Aspirin (Ecotrin) 81 mg PO DAILY [facility] Last Admin: 12/16/17 10:09 Dose: 81 mg Cyanocobalamin (Vitamin B12 1000 Mcg Tab) 1,000 mcg PO DAILY [facility] Last Admin: 12/16/17 10:09 Dose: 1,000 mcg Docusate Sodium (Colace) 100 mg PO BID [facility] Last Admin: 12/16/17 17:21 Dose: 100 mg Ferrous Sulfate (Feosol) 324 mg PO TID [facility] Last Admin: 12/16/17 17:21 Dose: 324 mg Ibuprofen (Motrin Tab) 600 mg PO Q6H PRN PRN Reason: Pain, moderate (4-7) Last Admin: 12/11/17 22:40 Dose: 600 mg Multivitamins/Minerals (Therapeutic-M Tab) 1 tab PO 0800 [facility] Last Admin: 12/16/17 10:09 Dose: 1 tab Pantoprazole Sodium (Protonix Ec Tab) 40 mg PO 0600 [facility] Last Admin: 12/16/17 06:34 Dose: 40 mg Polyethylene Glycol (Miralax) 17 gm PO BID [facility] Last Admin: 12/16/17 17:15 Dose: Not Given Rivaroxaban (Xarelto) 15 mg PO BID [facility] PRN Reason: Protocol Last Admin: 12/16/17 17:22 Dose: 15 mg Zaleplon (Sonata) 5 mg PO HS PRN PRN Reason: Insomnia Physical Exam - Constitutional Appears: Well - Head Exam Head Exam: ATRAUMATIC, NORMAL INSPECTION, NORMOCEPHALIC - Eye Exam Eye Exam: EOMI, Normal appearance, PERRL - ENT Exam ENT Exam: Mucous Membranes Moist, Normal Exam - Respiratory Exam Respiratory Exam: Clear to Auscultation Bilateral, NORMAL BREATHING PATTERN - Cardiovascular Exam Cardiovascular Exam: REGULAR RHYTHM, +S1, +S2 - GI/Abdominal Exam GI & Abdominal Exam: Normal Bowel Sounds, Soft. absent: Tenderness - Rectal Exam Rectal Exam: Deferred - Neurological Exam Neurological exam: Abnormal Gait, Alert, CN II-XII Intact, Oriented x3, Reflexes Normal Additional comments: Strength in upper extremities is 5/5 proximally and distally. Strength in lower extremities is 4/5 proximally and 4/5 distally with weakness on eversion of both feet. Sensation was intact throughout. Gait was not assessed. Results - Vital Signs Recent Vital Signs: Last Vital Signs Temp 97.8 F 12/16/17 16:00 Pulse 112 H 12/16/17 17:13 Resp 39 H 12/16/17 16:45 BP 105/66 12/16/17 08:30 Pulse Ox 97 12/16/17 16:00 - Labs Result Diagrams: 12/16/17 05:50 12/16/17 05:50 Labs: Laboratory Results - last 24 hr 12/16/17 12/16/17 05:50 05:50 WBC 7.8 RBC 2.64 L Hgb 9.5 L Hct 29.5 L MCV 111.7 H MCH 36.0 H MCHC 32.2 RDW 14.5 Plt Count 405 MPV 9.1 Gran % 63.4 Lymph % (Auto) 21.4 L Mora % (Auto) 11.7 H Eos % (Auto) 2.7 Baso % (Auto) 0.8 Gran # 4.93 Lymph # (Auto) 1.7 Mora # (Auto) 0.9 H Eos # (Auto) 0.2 Baso # (Auto) 0.06 Sodium 141 Potassium 4.3 Chloride 105 Carbon Dioxide 25 Anion Gap 15 BUN 12 Creatinine 0.7 Est GFR ( Amer) > 60 Est GFR (Non-Af Amer) > 60 Random Glucose 91 Calcium 9.5 Total Bilirubin 0.3 AST 57 H ALT 67 H Alkaline Phosphatase 67 Total Protein 6.4 Albumin 3.5 Globulin 2.8 Albumin/Globulin Ratio 1.3 Assessment & Plan (1) Leg weakness Assessment and Plan: This may be due to neuropathy, or could have thoracic spine pathology since MRI of lumbar was normal, I recommend evaluation of higher nerve roots. A CTA of the abdomen and pelvis is also recommended to rule out DVTs causing pain in the abdomen and hips. Continue PT/OT and current medical management. If MRI of the thoracic spine and CTA of the abdomen/pelvis are normal. EMG/NCS can be done as an outpatient. Thank you. Status: Acute Priority: High
[2017-12-17] MEDS: Pantoprazole 40 mg EC Tab PO SCH (06:30)
[2017-12-17 06:46] LABS: ALB/GLOB RATIO 1.2 (1.1-1.8); ALBUMIN 3.6 g/dL (3.0-4.8); ALT/SGPT 59 U/L (7-56); AST/SGOT 51 U/L (14-36); BLOOD UREA NITROGEN 10 mg/dL (7-21); CALCIUM 9.8 mg/dL (8.4-10.5); GFR AFRICAN-AMERICAN > 60; GFR NON-AFRICAN AMERICAN > 60
[2017-12-17 06:47] LABS: BASO # 0.05 K/mm3 (0.0-2.0); BASO % 0.6 % (0.0-3.0); EOS # 0.2 (0.0-0.7); EOS % 2.4 % (1.5-5.0); GRAN # 5.22 (1.4-6.5); GRAN % 61.8 % (50.0-68.0); LYMPH # 1.8 (1.2-3.4); MEAN CELL VOLUME 111.4 fl (80.0-105.0); MEAN CORPUSCULAR HEMOGLOBIN 35.7 pg (25.0-35.0); MEAN CORPUSCULAR HGB CONC 32.1 g/dl (31.0-37.0); MEAN PLATELET VOLUME 9.4 fl (7.0-11.0); MONO # 1.2 (0.1-0.6); MONO % 14.2 % (1.0-6.0); RBC 2.8 10^6/uL (3.5-6.1); RED CELL DISTRIBUTION WIDTH 14.4 % (11.5-14.5); WHITE BLOOD COUNT 8.4 10^3/ul (4.5-11.0)
--- NOTE | 2017-12-17 07:33 | CP.PCM.PN ---
Subjective - Date & Time of Evaluation Date of Evaluation: 12/17/17 Time of Evaluation: 07:30 - Subjective Subjective: Ms. Perez was seen and examined at the bedside. She is alert, oriented in all spheres. She is able to follow commands. She further claims of dull pain in her right leg. She is able to move but slow. She further states that keeping her leg straight can aggravate the pain. She needs assistance during any ambulation. There was no untoward events overnight. Objective - Vital Signs/Intake and Output Vital Signs (last 24 hours): Temp Pulse Resp BP Pulse Ox 97.8 F 112 H 39 H 105/66 97 12/16/17 16:00 12/16/17 17:13 12/16/17 16:45 12/16/17 08:30 12/16/17 16:00 Intake and Output: 12/17/17 12/17/17 06:59 18:59 Intake Total 360 Output Total 0 Balance 360 - Medications Medications: Current Medications Acetaminophen (Tylenol 325mg Tab) 650 mg PO Q4H PRN PRN Reason: Fever >100.4 F Last Admin: 12/11/17 09:39 Dose: 650 mg Alprazolam (Xanax) 0.5 mg PO TID PRN; Protocol PRN Reason: Anxiety Last Admin: 12/12/17 23:12 Dose: 0.5 mg Aspirin (Ecotrin) 81 mg PO DAILY [facility] Last Admin: 12/16/17 10:09 Dose: 81 mg Cyanocobalamin (Vitamin B12 1000 Mcg Tab) 1,000 mcg PO DAILY [facility] Last Admin: 12/16/17 10:09 Dose: 1,000 mcg Docusate Sodium (Colace) 100 mg PO BID [facility] Last Admin: 12/16/17 17:21 Dose: 100 mg Ferrous Sulfate (Feosol) 324 mg PO TID [facility] Last Admin: 12/16/17 17:21 Dose: 324 mg Ibuprofen (Motrin Tab) 600 mg PO Q6H PRN PRN Reason: Pain, moderate (4-7) Last Admin: 12/11/17 22:40 Dose: 600 mg Multivitamins/Minerals (Therapeutic-M Tab) 1 tab PO 0800 [facility] Last Admin: 12/16/17 10:09 Dose: 1 tab Pantoprazole Sodium (Protonix Ec Tab) 40 mg PO 0600 [facility] Last Admin: 12/17/17 06:30 Dose: 40 mg Polyethylene Glycol (Miralax) 17 gm PO BID [facility] Last Admin: 12/16/17 17:15 Dose: Not Given Rivaroxaban (Xarelto) 15 mg PO BID [facility] PRN Reason: Protocol Last Admin: 12/16/17 17:22 Dose: 15 mg Zaleplon (Sonata) 5 mg PO HS PRN PRN Reason: Insomnia - Labs Labs: 12/17/17 05:45 12/17/17 05:45 PT 17.3 SECONDS (9.4-12.5) H 12/10/17 19:45 INR 1.50 (0.93-1.08) H 12/10/17 19:45 APTT 61.4 Seconds (25.1-36.5) H 12/15/17 05:30 - Constitutional Appears: No Acute Distress - Head Exam Head Exam: NORMAL INSPECTION - Neurological Exam Neurological Exam: Alert, Awake, Oriented x3 Neuro motor strength exam: Left Upper Extremity: 5, Right Upper Extremity: 5, Left Lower Extremity: 4, Right Lower Extremity: 4 Additional comments: Strength in upper extremities is 5/5 proximally and distally. Strength in lower extremities is 4/5 proximally and 4/5 distally with weakness on eversion of both feet. Sensation was intact throughout. Assessment and Plan (1) Leg weakness Assessment & Plan: Case discussed with Dr. Garcia, continue all current medical and physical therapies. Recommend MRI of the thoracic spine and CTA of the abdomen and pelvis. If every diagnostic test are negative for any findings, then EMG/ ELEMENT[employer] M[employer] T[employer]OR and it could be done as an outpatient. Status: Acute
[2017-12-17] MEDS: POLYETHYLENE GLYCOL 3350 17 GM/Dose PACKET PO SCH ×2 (09:06→16:59)
[2017-12-17] MEDS: Multivitamin With Minerals Tab PO SCH (09:09)
--- NOTE | 2017-12-17 09:14 | CT ---
PROCEDURE: CT Abdomen and Pelvis with contrast HISTORY: abdominal pain r/o DVT COMPARISON: None. TECHNIQUE: Contrast dose: 150 cc of Omni 350 Radiation dose: Total exam DLP = 763 mGy-cm. This CT exam was performed using one or more of the following dose reduction techniques: Automated exposure control, adjustment of the mA and/or kV according to patient size, and/or use of iterative reconstruction technique. FINDINGS: LOWER THORAX: Small right pleural effusion and adjacent atelectasis. Small emboli can be seen in the right lower lobe pulmonary artery. The recent PE study dated 12/09/2017 showed bilateral pulmonary emboli LIVER: Unremarkable. No gross lesion or ductal dilatation. GALLBLADDER AND BILE DUCTS: Unremarkable. PANCREAS: Unremarkable. No gross lesion or ductal dilatation. SPLEEN: Unremarkable. ADRENALS: Unremarkable. No mass. KIDNEYS AND URETERS: Unremarkable. No hydronephrosis. No solid mass. VASCULATURE: The study was performed in the arterial phase. The aorta and its branches are normal in appearance. There is no venous opacification. However there is no enlargement or obvious inflammation of the IVC or iliac veins. BOWEL: Unremarkable. No obstruction. No gross mural thickening. APPENDIX: Normal appendix. PERITONEUM: Unremarkable. No free fluid. No free air. LYMPH NODES: Unremarkable. No enlarged lymph nodes. BLADDER: Unremarkable. REPRODUCTIVE: Unremarkable. BONES: No acute fracture. OTHER FINDINGS: None. IMPRESSION: No acute intra-abdominal findings. No gross evidence of iliac or IVC thrombosis. See comments
--- NOTE | 2017-12-17 10:33 | CP.PCM.PN ---
<Ava Fitzpatrick - Last Filed: 12/17/17 14:26> Subjective - Date & Time of Evaluation Date of Evaluation: 12/17/17 Time of Evaluation: 07:30 - Subjective Subjective: Ava Amari DO PGY1 - IM Progress Note Patient seen and examined at bedside. Yesterday, patient was transferred to med/ surg. Today, she reports that she did not sleep well. She denies any new pains. She reports that she is able to walk slightly better than yesterday, still requiring a lot of assistance even to get up to the bedside commode. She has had no further episodes of blood tinged sputum. She denies any chest pain, shortness of breath, or cough. She had a bowel movement yesterday. She denies abdominal pain, nausea, vomiting, diarrhea, fever, or chills. Objective - Vital Signs/Intake and Output Vital Signs (last 24 hours): Temp Pulse Resp BP Pulse Ox 98.7 F 117 H 20 118/63 98 12/17/17 08:20 12/17/17 08:20 12/17/17 08:20 12/17/17 08:20 12/17/17 08:20 Intake and Output: 12/17/17 12/17/17 06:59 18:59 Intake Total 360 Output Total 0 Balance 360 - Medications Medications: Current Medications Acetaminophen (Tylenol 325mg Tab) 650 mg PO Q4H PRN PRN Reason: Fever >100.4 F Last Admin: 12/11/17 09:39 Dose: 650 mg Alprazolam (Xanax) 0.5 mg PO TID PRN; Protocol PRN Reason: Anxiety Last Admin: 12/12/17 23:12 Dose: 0.5 mg Aspirin (Ecotrin) 81 mg PO DAILY [facility] Last Admin: 12/17/17 09:07 Dose: 81 mg Cyanocobalamin (Vitamin B12 1000 Mcg Tab) 1,000 mcg PO DAILY [facility] Last Admin: 12/17/17 09:07 Dose: 1,000 mcg Docusate Sodium (Colace) 100 mg PO BID [facility] Last Admin: 12/17/17 09:07 Dose: 100 mg Ferrous Sulfate (Feosol) 324 mg PO TID [facility] Last Admin: 12/17/17 09:07 Dose: 324 mg Ibuprofen (Motrin Tab) 600 mg PO Q6H PRN PRN Reason: Pain, moderate (4-7) Last Admin: 12/11/17 22:40 Dose: 600 mg Multivitamins/Minerals (Therapeutic-M Tab) 1 tab PO 0800 [facility] Last Admin: 12/17/17 09:09 Dose: 1 tab Pantoprazole Sodium (Protonix Ec Tab) 40 mg PO 0600 [facility] Last Admin: 12/17/17 06:30 Dose: 40 mg Polyethylene Glycol (Miralax) 17 gm PO BID [facility] Last Admin: 12/17/17 09:06 Dose: Not Given Rivaroxaban (Xarelto) 15 mg PO BID [facility] PRN Reason: Protocol Last Admin: 12/17/17 09:07 Dose: 15 mg Zaleplon (Sonata) 5 mg PO HS PRN PRN Reason: Insomnia - Labs Labs: 12/17/17 05:45 12/17/17 05:45 PT 17.3 SECONDS (9.4-12.5) H 12/10/17 19:45 INR 1.50 (0.93-1.08) H 12/10/17 19:45 APTT 61.4 Seconds (25.1-36.5) H 12/15/17 05:30 - Constitutional Appears: Non-toxic, No Acute Distress - Eye Exam Eye Exam: EOMI, Normal appearance, PERRL - ENT Exam ENT Exam: Mucous Membranes Moist - Neck Exam Neck Exam: Normal Inspection - Respiratory Exam Respiratory Exam: Clear to Ausculation Bilateral, NORMAL BREATHING PATTERN - Cardiovascular Exam Cardiovascular Exam: Tachycardia, REGULAR RHYTHM, +S1, +S2 - GI/Abdominal Exam GI & Abdominal Exam: Soft, Normal Bowel Sounds. absent: Tenderness - Extremities Exam Extremities Exam: absent: Calf Tenderness, Pedal Edema - Neurological Exam Neurological Exam: Alert, Awake, Oriented x3 Neuro motor strength exam: Left Upper Extremity: 5, Right Upper Extremity: 5, Left Lower Extremity: 4, Right Lower Extremity: 4 - Psychiatric Exam Psychiatric exam: Anxious, Normal Affect - Skin Skin Exam: Dry, Intact, Normal Color Assessment and Plan - Assessment and Plan (Free Text) Assessment: 27 year old female with past medical history of ovarian cysts who was admitted for evaluation and treatment of cough with blood tinged sputum production. Currently being treated for unprovoked first pulmonary embolus (saddle embolus) , RLE DVT and a pneumonia. Patient is on heparin drip, switching to NOAC today. She is hemodynamically stable and is getting out of bed to chair as tolerated; still having significant difficulty with ambulation. Patient is anxious at baseline. Plan: 1. Cough/Hemoptysis 2/2 unprovoked DVT/PE - Continue Xarelto - No further episodes of blood tinged sputum; H&H stable - Hypercoagulable workup negative; should be repeated as outpatient after 6 months of therapy and confirmed resolution of DVT and PE - Hem/Onc on consult; appreciate recs - Cardio on consult; appreciate recs - signed off 2. Community Acquired Pneumonia - Resolved - Continue to monitor 3. Anemia - H/H improving - Continue B12 supplements - Continue PO iron 4. Elevated LFTs - Improving; likely 2/2 passive congestion in setting of PE - Continue to monitor 5. Abdominal Discomfort; Constipation - Last BM yesterday; discomfort improved - Continue Colace and Miralax 6. Anxiety - cont Xanax 0.5mg PO TID PRN - cont Sonata 5mg HS PRN - Psych consult; appreciate recs - Patient does not meet criteria for inpatient psych unit, but would benefit from from outpatient therapist (per psych recs) 7. Back Pain and Leg Weakness - Likely 2/2 deconditioning vs psychogenic vs myopathy vs neuropathy - L spine MRI unremarkable - T Spine MRI and CTA of A/P ordered per neuro - high risk fall precautions - PT/OT evaluation and treatment - Requested neuro consult; appreciate recs 8. Prophylaxis - DVT ppx - Xarelto - GI ppx - protonix PO Patient was seen, examined and discussed with attending, Dr. Duran <Larry Duran B - Last Filed: 12/17/17 15:12> Objective - Vital Signs/Intake and Output Vital Signs (last 24 hours): Temp Pulse Resp BP Pulse Ox 98.7 F 117 H 20 118/63 98 12/17/17 08:20 12/17/17 08:20 12/17/17 08:20 12/17/17 08:20 12/17/17 08:20 Intake and Output: 12/17/17 12/17/17 06:59 18:59 Intake Total 360 Output Total 0 Balance 360 - Medications Medications: Current Medications Acetaminophen (Tylenol 325mg Tab) 650 mg PO Q4H PRN PRN Reason: Fever >100.4 F Last Admin: 12/11/17 09:39 Dose: 650 mg Alprazolam (Xanax) 0.5 mg PO TID PRN; Protocol PRN Reason: Anxiety Last Admin: 12/12/17 23:12 Dose: 0.5 mg Aspirin (Ecotrin) 81 mg PO DAILY [facility] Last Admin: 12/17/17 09:07 Dose: 81 mg Cyanocobalamin (Vitamin B12 1000 Mcg Tab) 1,000 mcg PO DAILY [facility] Last Admin: 12/17/17 09:07 Dose: 1,000 mcg Docusate Sodium (Colace) 100 mg PO BID [facility] Last Admin: 12/17/17 09:07 Dose: 100 mg Ferrous Sulfate (Feosol) 324 mg PO TID [facility] Last Admin: 12/17/17 09:07 Dose: 324 mg Ibuprofen (Motrin Tab) 600 mg PO Q6H PRN PRN Reason: Pain, moderate (4-7) Last Admin: 12/11/17 22:40 Dose: 600 mg Multivitamins/Minerals (Therapeutic-M Tab) 1 tab PO 0800 [facility] Last Admin: 12/17/17 09:09 Dose: 1 tab Pantoprazole Sodium (Protonix Ec Tab) 40 mg PO 0600 [facility] Last Admin: 12/17/17 06:30 Dose: 40 mg Polyethylene Glycol (Miralax) 17 gm PO BID [facility] Last Admin: 12/17/17 09:06 Dose: Not Given Rivaroxaban (Xarelto) 15 mg PO BID [facility] PRN Reason: Protocol Last Admin: 12/17/17 09:07 Dose: 15 mg Zaleplon (Sonata) 5 mg PO HS PRN PRN Reason: Insomnia - Labs Labs: 12/17/17 05:45 12/17/17 05:45 PT 17.3 SECONDS (9.4-12.5) H 12/10/17 19:45 INR 1.50 (0.93-1.08) H 12/10/17 19:45 APTT 61.4 Seconds (25.1-36.5) H 12/15/17 05:30 Attending/Attestation - Attestation I have personally seen and examined this patient.: Yes I have fully participated in the care of the patient.: Yes I have reviewed all pertinent clinical information, including history, physical exam and plan: Yes Notes (Text): I have seen and examined the patient at bedside. Agree with the above note with the following additions/ exceptions: Briefly this is 27 year old female who was admitted with first episode of unprovoked saddle PE and RLE DVT. Patient denies any cough, hemoptysis, chest pain, dyspnea or any other complaints. Reports that her anxiety and leg pain is better however she continues to complain of bilateral leg weakness. MRI of lumbosacral spine reviewed which is unremarkable. Neuro consult appreciated and they recommended MRI thoracic spine and CTA Abdomen. Psych re eval also requested. Continue Xarelto. Echo revealed ef of 50% and moderately to severely reduced RV systolic function. Cardiology consult appreciated. PESI is class 1 or low risk and sPESI is also 0. Antibiotics stopped. Encourage incentive spirometer. Continue xanax for anxiety. PT recommended acute rehab. Upon discharge the patient will follow-up with PMD Dr Gerda izquierdo. Dr Larry Duran
--- NOTE | 2017-12-17 11:10 | MRI ---
PROCEDURE: MR THORACIC SPINE WITHOUT CONTRAST HISTORY: b/l LE weakness COMPARISON: None available. TECHNIQUE: Multiecho multiplanar sequences were performed through the thoracic spine without the use of intravenous contrast. FINDINGS: ALIGNMENT: Normal thoracic spinal alignment. Normal thoracic kyphosis. VERTEBRA: Vertebral body height are preserved. MARROW: Marrow signal unremarkable. PARASPINAL SOFT TISSUES: Unremarkable. CORD: Unremarkable thoracic cord. No volume loss, signal abnormality or syrinx. DISCS: No disc herniation, spinal canal stenosis, or neuroforaminal narrowing. OTHER FINDINGS: None. IMPRESSION: Unremarkable non-contrast enhanced MRI of the thoracic spine
--- NOTE | 2017-12-17 14:02 | CP.PCM.PN ---
Subjective - Date & Time of Evaluation Date of Evaluation: 12/17/17 Time of Evaluation: 11:35 - Subjective Subjective: Able to walk better, no fevers. Objective - Vital Signs/Intake and Output Vital Signs (last 24 hours): Temp Pulse Resp BP Pulse Ox 98.7 F 117 H 20 118/63 98 12/17/17 08:20 12/17/17 08:20 12/17/17 08:20 12/17/17 08:20 12/17/17 08:20 Intake and Output: 12/17/17 12/17/17 06:59 18:59 Intake Total 360 Output Total 0 Balance 360 - Medications Medications: Current Medications Acetaminophen (Tylenol 325mg Tab) 650 mg PO Q4H PRN PRN Reason: Fever >100.4 F Last Admin: 12/11/17 09:39 Dose: 650 mg Alprazolam (Xanax) 0.5 mg PO TID PRN; Protocol PRN Reason: Anxiety Last Admin: 12/12/17 23:12 Dose: 0.5 mg Aspirin (Ecotrin) 81 mg PO DAILY [facility] Last Admin: 12/17/17 09:07 Dose: 81 mg Cyanocobalamin (Vitamin B12 1000 Mcg Tab) 1,000 mcg PO DAILY [facility] [place] Last Admin: 12/17/17 09:07 Dose: 1,000 mcg Docusate Sodium (Colace) 100 mg PO BID [facility] [place] Last Admin: 12/17/17 09:07 Dose: 100 mg Ferrous Sulfate (Feosol) 324 mg PO TID [facility] Last Admin: 12/17/17 09:07 Dose: 324 mg Ibuprofen (Motrin Tab) 600 mg PO Q6H PRN PRN Reason: Pain, moderate (4-7) Last Admin: 12/11/17 22:40 Dose: 600 mg Multivitamins/Minerals (Therapeutic-M Tab) 1 tab PO 0800 [facility] [place] Last Admin: 12/17/17 09:09 Dose: 1 tab Pantoprazole Sodium (Protonix Ec Tab) 40 mg PO 0600 [facility] [place] Last Admin: 12/17/17 06:30 Dose: 40 mg Polyethylene Glycol (Miralax) 17 gm PO BID [facility] Last Admin: 12/17/17 09:06 Dose: Not Given Rivaroxaban (Xarelto) 15 mg PO BID [facility] PRN Reason: Protocol Last Admin: 12/17/17 09:07 Dose: 15 mg Zaleplon (Sonata) 5 mg PO HS PRN PRN Reason: Insomnia - Labs Labs: 12/17/17 05:45 12/17/17 05:45 PT 17.3 SECONDS (9.4-12.5) H 12/10/17 19:45 INR 1.50 (0.93-1.08) H 12/10/17 19:45 APTT 61.4 Seconds (25.1-36.5) H 12/15/17 05:30 - Constitutional Appears: Chronically Ill - Head Exam Head Exam: NORMAL INSPECTION - Respiratory Exam Respiratory Exam: Decreased Breath Sounds - Cardiovascular Exam Cardiovascular Exam: +S1, +S2 - GI/Abdominal Exam GI & Abdominal Exam: Soft. absent: Tenderness Assessment and Plan - Assessment and Plan (Free Text) Plan: Assessment S/P Severe sepsis with hypoxic respiratory failure due to right sided pulmonary emboli S/P treatment for atypical HCAP ovarian cysts history of fracture of right patella history of community-acquired pneumonia obesity with BMI 31 Plan will continue to monitor off antibiotics since she is at risk for nosocomial infections patient is on Heparin HIV test is non-reactive will continue to monitor clinically reviewed lumbar MRI - non-specific finding on psoas muscles - should be monitored
--- NOTE | 2017-12-17 21:10 | PN ---
DATE: SUBJECTIVE: The patient is a 27-year-old -[place] female who was admitted initially to ICU for pulmonary embolism. Psych consult was called for depressive symptoms and anxiety at the time of admission. The patient was seen by this creative services writer on 12/10/2017. Over the weekend, Dr. Rich signed off on this patient. Dr. Duran asked this creative services writer to follow up on this patient because of anxiety. The patient presented with symptoms, which were not explained by medical issues. The patient complained of weakness in her lower extremities, inability to walk. This creative services writer suggested Neurology to be involved. Thoracic spine was done today, seems to be within normal limits. Notes from Neurology team reviewed and appreciated. The patient was seen today, discussed with Dr. Lisa Duran as well as with the nursing staff. As per nursing staff report, the patient is doing fine, does not present to be depressed or suicidal but complains of lower extremity weakness. As per collateral information from Dr. Lisa Duran, the patient has tendency of urinating on herself and defecating on herself and not asking for help. The patient seems to have low interest in improving as well as based on the age and medical issues, the patient should be able to walk. The patient was seen and examined today. The patient presented to be alert, pleasant, child like demeanor. The patient was smiling anxiously. The patient reported that she feels anxious, denied being depressed, denied thoughts of killing herself or others. The patient reported weakness in lower extremities, inability to walk. Physical therapy recommended acute rehab. The patient also said that she has anxiety which seems to be uncontrolled during her working hours at [employer]. The patient feels that everybody stares at her and also she feels intimidated to the extent that the patient would excuse herself and go to the bathroom and flush some water into her face and her neck. The patient was educated about Paxil. Risks, benefits, and alternatives explained to the patient. The patient is willing to try this medication, which would help with the depressed mood as well as anxiety. This creative services writer reviewed vital signs. Temperature 98.7, pulse is 117, blood pressure 111/63, respirations 20, and oxygen saturation is 98. MEDICATIONS: Include the patient is on Tylenol; Xanax 0.5 mg three times a day, last time the patient took it was on 12/12/2017; Colace; vitamin B12; Motrin; multivitamins; MiraLax; and Sonata, the patient was not taking that medication and not asking for it. Paxil will be started at 10 mg at the nighttime. MENTAL STATUS EXAMINATION: The patient appears to be alert, pleasant, anxious. Intermittent eye contact. Speech was under productive, low volume. Mood described as anxious. Thought process seems to be coherent, goal directed. Thought content, the patient denied visual, auditory, tactile hallucinations. Denied paranoid ideation. The patient denied thoughts of harming herself or others. Denied intent or plan. Insight and judgment seem to be improving. Impulses are well controlled. IMPRESSION: Rule out generalized anxiety disorder, rule out social phobia, rule out social anxiety disorder, rule out different mechanism as regression. The patient's life to be taken care of, but this creative services writer will repeat herself medical issues need to be addressed first. Paxil was started at 10 mg at the nighttime for anxiety and for depression. This creative services writer had prolonged conversation with the medical team today with Dr. Lisa Duran. Neurology team was involved. Thoracic spine MRI was done, no pathology. Physical therapy recommended. Dr. Rich will follow up on this patient on Wednesday. There is no acuity for this patient from the psychiatric standpoint. We will follow up on this patient every other day. Should you have any questions, give me a call back. Thank you very much for letting me participate in care of your patient. Ana Martin MD [facility]
[2017-12-18] MEDS: Pantoprazole 40 mg EC Tab PO SCH (05:27)
[2017-12-18 07:22] LABS: BASO # 0.03 K/mm3 (0.0-2.0); BASO % 0.5 % (0.0-3.0); EOS # 0.2 (0.0-0.7); EOS % 2.7 % (1.5-5.0); GRAN # 3.82 (1.4-6.5); GRAN % 61.1 % (50.0-68.0); HEMOGLOBIN 10.5 g/dL (12.0-16.0); LYMPH # 1.5 (1.2-3.4); LYMPH % 23.2 % (22.0-35.0); MEAN CELL VOLUME 111.4 fl (80.0-105.0); MEAN CORPUSCULAR HEMOGLOBIN 35.2 pg (25.0-35.0); MEAN CORPUSCULAR HGB CONC 31.6 g/dl (31.0-37.0); MEAN PLATELET VOLUME 9.4 fl (7.0-11.0); MONO # 0.8 (0.1-0.6); MONO % 12.5 % (1.0-6.0); RBC 2.98 10^6/uL (3.5-6.1); RED CELL DISTRIBUTION WIDTH 14.3 % (11.5-14.5); WHITE BLOOD COUNT 6.3 10^3/ul (4.5-11.0)
[2017-12-18 07:28] LABS: ALB/GLOB RATIO 1.2 (1.1-1.8); ALBUMIN 3.8 g/dL (3.0-4.8); ALT/SGPT 53 U/L (7-56); AST/SGOT 34 U/L (14-36); BLOOD UREA NITROGEN 11 mg/dL (7-21); CALCIUM 9.7 mg/dL (8.4-10.5); GFR AFRICAN-AMERICAN > 60; GFR NON-AFRICAN AMERICAN > 60
[2017-12-18] MEDS: Multivitamin With Minerals Tab PO SCH (10:06)
[2017-12-18] MEDS: POLYETHYLENE GLYCOL 3350 17 GM/Dose PACKET PO SCH ×2 (10:07→17:28)
--- NOTE | 2017-12-18 12:50 | CP.PCM.PN ---
<Ava Fitzpatrick - Last Filed: 12/18/17 14:27> Subjective - Date & Time of Evaluation Date of Evaluation: 12/18/17 Time of Evaluation: 07:30 - Subjective Subjective: Ava Amari DO PGy1 - IM Progress Note Patient seen and examined at bedside. No acute events overnight. Patient reports still having a lot of difficulty with ambulation. Did not make it to the commode and did soil herself with urine yesterday. She denies any chest pain , shortness of breath, cough, hemoptysis. Objective - Vital Signs/Intake and Output Vital Signs (last 24 hours): Temp Pulse Resp BP Pulse Ox 98.6 F 108 H 20 95/63 L 95 12/18/17 06:00 12/18/17 06:00 12/18/17 06:00 12/18/17 06:00 12/18/17 06:00 Intake and Output: 12/18/17 12/18/17 06:59 18:59 Intake Total 1340 Output Total 300 Balance 1040 - Medications Medications: Current Medications Acetaminophen (Tylenol 325mg Tab) 650 mg PO Q4H PRN PRN Reason: Fever >100.4 F Last Admin: 12/11/17 09:39 Dose: 650 mg Alprazolam (Xanax) 0.5 mg PO TID PRN; Protocol PRN Reason: Anxiety Last Admin: 12/12/17 23:12 Dose: 0.5 mg Aspirin (Ecotrin) 81 mg PO DAILY [facility] Last Admin: 12/18/17 10:06 Dose: 81 mg Cyanocobalamin (Vitamin B12 1000 Mcg Tab) 1,000 mcg PO DAILY [facility] Last Admin: 12/18/17 10:06 Dose: 1,000 mcg Docusate Sodium (Colace) 100 mg PO BID [facility] Last Admin: 12/18/17 10:06 Dose: 100 mg Ferrous Sulfate (Feosol) 324 mg PO TID [facility] Last Admin: 12/18/17 10:06 Dose: 324 mg Ibuprofen (Motrin Tab) 600 mg PO Q6H PRN PRN Reason: Pain, moderate (4-7) Last Admin: 12/11/17 22:40 Dose: 600 mg Multivitamins/Minerals (Therapeutic-M Tab) 1 tab PO 0800 [facility] Last Admin: 12/18/17 10:06 Dose: 1 tab Pantoprazole Sodium (Protonix Ec Tab) 40 mg PO 0600 [facility] Last Admin: 12/18/17 05:27 Dose: 40 mg Paroxetine HCl (Paxil) 10 mg PO HS [facility] Last Admin: 12/17/17 21:27 Dose: 10 mg Polyethylene Glycol (Miralax) 17 gm PO BID [facility] Last Admin: 12/18/17 10:07 Dose: Not Given Rivaroxaban (Xarelto) 15 mg PO BID [facility] PRN Reason: Protocol Last Admin: 12/18/17 10:06 Dose: 15 mg Zaleplon (Sonata) 5 mg PO HS PRN PRN Reason: Insomnia - Labs Labs: 12/18/17 06:30 12/18/17 06:30 PT 17.3 SECONDS (9.4-12.5) H 12/10/17 19:45 INR 1.50 (0.93-1.08) H 12/10/17 19:45 APTT 61.4 Seconds (25.1-36.5) H 12/15/17 05:30 - Constitutional Appears: Non-toxic, No Acute Distress - Head Exam Head Exam: ATRAUMATIC, NORMOCEPHALIC - Eye Exam Eye Exam: EOMI, Normal appearance, PERRL - ENT Exam ENT Exam: Mucous Membranes Moist - Neck Exam Neck Exam: Normal Inspection - Respiratory Exam Respiratory Exam: Clear to Ausculation Bilateral, NORMAL BREATHING PATTERN - Cardiovascular Exam Cardiovascular Exam: RRR, +S1, +S2. absent: Tachycardia - GI/Abdominal Exam GI & Abdominal Exam: Soft, Normal Bowel Sounds. absent: Tenderness - Extremities Exam Extremities Exam: absent: Calf Tenderness, Pedal Edema - Neurological Exam Neurological Exam: Alert, Awake, Oriented x3 Neuro motor strength exam: Left Upper Extremity: 5, Right Upper Extremity: 5, Left Lower Extremity: 5, Right Lower Extremity: 5 - Psychiatric Exam Psychiatric exam: Normal Affect, Normal Mood - Skin Skin Exam: Dry, Intact, Normal Color Assessment and Plan - Assessment and Plan (Free Text) Assessment: 27 year old female with past medical history of ovarian cysts who was admitted for evaluation and treatment of cough with blood tinged sputum production. Currently being treated for unprovoked first pulmonary embolus (saddle embolus) , RLE DVT with Xarelto, as well as b/l LE weakness. She is hemodynamically stable and is getting out of bed to chair as tolerated; still having significant difficulty with ambulation. Patient is anxious at baseline. Plan: 1. Cough/Hemoptysis 2/2 unprovoked DVT/PE - Continue Xarelto - Patient is no longer tachycardic on exam today; HR 80's - Hypercoagulable workup negative; should be repeated as outpatient after 6 months of therapy and confirmed resolution of DVT and PE - Hem/Onc on consult; appreciate recs - Cardio on consult; appreciate recs - signed off 2. Anemia - H/H improving - Continue B12 supplements - Continue PO iron 3. Elevated LFTs - Improving; likely 2/2 passive congestion in setting of PE - Transaminemia resolved today - Continue to monitor 4. Abdominal Discomfort; Constipation - Last BM two days ago - Continue Colace and Miralax 5. Anxiety - cont Xanax 0.5mg PO TID PRN - cont Sonata 5mg HS PRN - Psych consult; appreciate recs - Patient does not meet criteria for inpatient psych unit, but would benefit from from outpatient therapist (per psych recs) 6. Back Pain and Leg Weakness - Likely 2/2 deconditioning vs psychogenic vs myopathy vs neuropathy - L spine MRI unremarkable - T Spine MRI and CTA of A/P completed yesterday, unremarkable - high risk fall precautions - PT/OT evaluation and treatment - Patient still not safe to discharge, cannot ambulate independantly; requires acute rehab but does not have insurance to cover it; medicaid pendin - Requested neuro consult; appreciate recs 7. Prophylaxis - DVT ppx - Xarelto - GI ppx - protonix PO Patient was seen, examined and discussed with attending, Dr. Duran <Larry Duran - Last Filed: 12/18/17 14:45> Objective - Vital Signs/Intake and Output Vital Signs (last 24 hours): Temp Pulse Resp BP Pulse Ox 98.6 F 108 H 20 95/63 L 95 12/18/17 06:00 12/18/17 06:00 12/18/17 06:00 12/18/17 06:00 12/18/17 06:00 Intake and Output: 12/18/17 12/18/17 06:59 18:59 Intake Total 1340 600 Output Total 300 400 Balance 1040 200 - Medications Medications: Current Medications Acetaminophen (Tylenol 325mg Tab) 650 mg PO Q4H PRN PRN Reason: Fever >100.4 F Last Admin: 12/11/17 09:39 Dose: 650 mg Alprazolam (Xanax) 0.5 mg PO TID PRN; Protocol PRN Reason: Anxiety Last Admin: 12/12/17 23:12 Dose: 0.5 mg Aspirin (Ecotrin) 81 mg PO DAILY [facility] Last Admin: 12/18/17 10:06 Dose: 81 mg Cyanocobalamin (Vitamin B12 1000 Mcg Tab) 1,000 mcg PO DAILY [facility] Last Admin: 12/18/17 10:06 Dose: 1,000 mcg Docusate Sodium (Colace) 100 mg PO BID [facility] Last Admin: 12/18/17 10:06 Dose: 100 mg Ferrous Sulfate (Feosol) 324 mg PO TID [facility] Last Admin: 12/18/17 10:06 Dose: 324 mg Ibuprofen (Motrin Tab) 600 mg PO Q6H PRN PRN Reason: Pain, moderate (4-7) Last Admin: 12/11/17 22:40 Dose: 600 mg Multivitamins/Minerals (Therapeutic-M Tab) 1 tab PO 0800 [facility] Last Admin: 12/18/17 10:06 Dose: 1 tab Pantoprazole Sodium (Protonix Ec Tab) 40 mg PO 0600 [facility] Last Admin: 12/18/17 05:27 Dose: 40 mg Paroxetine HCl (Paxil) 10 mg PO HS [facility] Last Admin: 12/17/17 21:27 Dose: 10 mg Polyethylene Glycol (Miralax) 17 gm PO BID [facility] Last Admin: 12/18/17 10:07 Dose: Not Given Rivaroxaban (Xarelto) 15 mg PO BID [facility] PRN Reason: Protocol Last Admin: 12/18/17 10:06 Dose: 15 mg Zaleplon (Sonata) 5 mg PO HS PRN PRN Reason: Insomnia - Labs Labs: 12/18/17 06:30 12/18/17 06:30 PT 17.3 SECONDS (9.4-12.5) H 12/10/17 19:45 INR 1.50 (0.93-1.08) H 12/10/17 19:45 APTT 61.4 Seconds (25.1-36.5) H 12/15/17 05:30 Attending/Attestation - Attestation I have personally seen and examined this patient.: Yes I have fully participated in the care of the patient.: Yes I have reviewed all pertinent clinical information, including history, physical exam and plan: Yes Notes (Text): I have seen and examined the patient at bedside. Agree with the above note with the following additions/ exceptions: Briefly this is 27 year old female who was admitted with first episode of unprovoked saddle PE and RLE DVT. Patient denies any cough, hemoptysis, chest pain, dyspnea or any other complaints. Reports that her anxiety and leg pain is better however she continues to complain of bilateral leg weakness. MRI of lumbosacral spine reviewed which is unremarkable. Neuro consult appreciated and they recommended MRI thoracic spine and CTA Abdomen which was also normal. Psych re eval was requested and patient was started on paxil. Continue Xarelto. Echo revealed ef of 50% and moderately to severely reduced RV systolic function. Cardiology consult appreciated. PESI is class 1 or low risk and sPESI is also 0. Antibiotics stopped. Encourage incentive spirometer. Continue xanax for anxiety. PT recommended acute rehab. Today she complains of constipation. Will start stool softeners. Upon discharge the patient will follow-up with PMD Dr Gerda izquierdo. Dr Larry Duran
--- NOTE | 2017-12-18 23:04 | PN ---
DATE: 12/18/2017 SUBJECTIVE: The patient is seen earlier this morning in room 366, bed 2. The patient has no fever, no chills. He still is having difficulty getting around. PHYSICAL EXAMINATION: VITAL SIGNS: Temperature is 98, blood pressure is 95/60, respiratory rate of 16. HEENT: Unremarkable. NECK: Supple. LUNGS: Decreased breath sounds. HEART: Normal S1 and S2. ABDOMEN: Soft. LABORATORY DATA: Reveals the patient's white count is 6.3, hemoglobin of 10, platelets of 437. Chemistry reveals a BUN of 11, creatinine of 0.7. Urinalysis is noted and serology is noted. Microbiology is revealed. ASSESSMENT AND PLAN: A 27-year-old female with severe sepsis hypoxic respiratory failure, right-sided pulmonary emboli status post treatment, currently off of antibiotics, afebrile. We will follow with you. Nikhil Gonzalez MD
[2017-12-19] MEDS: Pantoprazole 40 mg EC Tab PO SCH (06:15)
[2017-12-19 07:49] LABS: BASO # 0.02 K/mm3 (0.0-2.0); BASO % 0.4 % (0.0-3.0); EOS # 0.2 (0.0-0.7); EOS % 2.9 % (1.5-5.0); GRAN # 3.36 (1.4-6.5); GRAN % 61.7 % (50.0-68.0); HEMOGLOBIN 10.2 g/dL (12.0-16.0); LYMPH # 1.4 (1.2-3.4); LYMPH % 26.4 % (22.0-35.0); MEAN CELL VOLUME 110.5 fl (80.0-105.0); MEAN CORPUSCULAR HEMOGLOBIN 34.5 pg (25.0-35.0); MEAN CORPUSCULAR HGB CONC 31.2 g/dl (31.0-37.0); MEAN PLATELET VOLUME 9.5 fl (7.0-11.0); MONO # 0.5 (0.1-0.6); MONO % 8.6 % (1.0-6.0); RBC 2.96 10^6/uL (3.5-6.1); RED CELL DISTRIBUTION WIDTH 14.6 % (11.5-14.5); WHITE BLOOD COUNT 5.5 10^3/ul (4.5-11.0)
[2017-12-19 08:08] LABS: ALB/GLOB RATIO 1.1 (1.1-1.8); ALBUMIN 3.5 g/dL (3.0-4.8); ALT/SGPT 47 U/L (7-56); AST/SGOT 34 U/L (14-36); BLOOD UREA NITROGEN 10 mg/dL (7-21); CALCIUM 9.8 mg/dL (8.4-10.5); GFR AFRICAN-AMERICAN > 60; GFR NON-AFRICAN AMERICAN > 60
--- NOTE | 2017-12-19 08:11 | CP.PCM.PN ---
Subjective - Date & Time of Evaluation Date of Evaluation: 12/19/17 Time of Evaluation: 08:07 - Subjective Subjective: Ms. Perez was seen and examined at the bedside. She is alert, oriented in all spheres. She states of experiencing back pain, but refused to take any pain medications. She further verbalized that change of position is alleviating the pain. She also claims that due to BLE weakness she was not able to reach the bathroom in time. She describe that the BLE is more heavy, but sensation remains intact. CTA of the abdomen and pelvis did not show any acute findings except for the emboli in the pulmonary artery. MRI of the thoracic dis not revealed any acute findings. There was no untoward events overnight. Objective - Vital Signs/Intake and Output Vital Signs (last 24 hours): Temp Pulse Resp BP Pulse Ox 99.0 F 105 H 22 93/55 L 96 12/19/17 06:00 12/19/17 06:00 12/19/17 06:00 12/19/17 06:00 12/19/17 06:00 Intake and Output: 12/19/17 12/19/17 06:59 18:59 Intake Total 360 Output Total 300 Balance 60 - Medications Medications: Current Medications Acetaminophen (Tylenol 325mg Tab) 650 mg PO Q4H PRN PRN Reason: Fever >100.4 F Last Admin: 12/11/17 09:39 Dose: 650 mg Alprazolam (Xanax) 0.5 mg PO TID PRN; Protocol PRN Reason: Anxiety Last Admin: 12/12/17 23:12 Dose: 0.5 mg Aspirin (Ecotrin) 81 mg PO DAILY [facility] Last Admin: 12/18/17 10:06 Dose: 81 mg Cyanocobalamin (Vitamin B12 1000 Mcg Tab) 1,000 mcg PO DAILY [facility] Last Admin: 12/18/17 10:06 Dose: 1,000 mcg Docusate Sodium (Colace) 100 mg PO BID [facility] Last Admin: 12/18/17 17:27 Dose: 100 mg Ferrous Sulfate (Feosol) 324 mg PO TID [facility] Last Admin: 12/18/17 17:27 Dose: 324 mg Ibuprofen (Motrin Tab) 600 mg PO Q6H PRN PRN Reason: Pain, moderate (4-7) Last Admin: 12/11/17 22:40 Dose: 600 mg Multivitamins/Minerals (Therapeutic-M Tab) 1 tab PO 0800 [facility] Last Admin: 12/18/17 10:06 Dose: 1 tab Pantoprazole Sodium (Protonix Ec Tab) 40 mg PO 0600 [facility] Last Admin: 12/19/17 06:15 Dose: 40 mg Paroxetine HCl (Paxil) 10 mg PO HS [facility] Last Admin: 12/18/17 22:00 Dose: Not Given Polyethylene Glycol (Miralax) 17 gm PO BID [facility] Last Admin: 12/18/17 17:28 Dose: Not Given Rivaroxaban (Xarelto) 15 mg PO BID [facility] PRN Reason: Protocol Last Admin: 12/18/17 17:27 Dose: 15 mg Zaleplon (Sonata) 5 mg PO HS PRN PRN Reason: Insomnia - Labs Labs: 12/18/17 06:30 12/18/17 06:30 PT 17.3 SECONDS (9.4-12.5) H 12/10/17 19:45 INR 1.50 (0.93-1.08) H 12/10/17 19:45 APTT 61.4 Seconds (25.1-36.5) H 12/15/17 05:30 - Constitutional Appears: No Acute Distress - Head Exam Head Exam: NORMAL INSPECTION - Neurological Exam Neurological Exam: Alert, Awake, Oriented x3 Neuro motor strength exam: Left Upper Extremity: 5, Right Upper Extremity: 5, Left Lower Extremity: 2/1, Right Lower Extremity: 2/1 Additional comments: She is able to follow commands with decrease sensation in the BLE in comparison to her ULE. Assessment and Plan (1) Leg weakness Assessment & Plan: Case discussed with Dr. Garcia, continue all current medical, psychiatry, physical, and occupational therapies. Recommend [facility] TEACHER/ EMG as an outpatient. Status: Acute
[2017-12-19] MEDS: Multivitamin With Minerals Tab PO SCH (10:32)
[2017-12-19] MEDS: POLYETHYLENE GLYCOL 3350 17 GM/Dose PACKET PO SCH ×2 (10:33→18:29)
--- NOTE | 2017-12-19 11:53 | CP.PCM.PN ---
<Ava Fitzpatrick - Last Filed: 12/19/17 11:50> Subjective - Date & Time of Evaluation Date of Evaluation: 12/19/17 Time of Evaluation: 07:30 - Subjective Subjective: Ava Fitzpatrick DO PGY1 - IM Progress Note Patient seen and examined at bedside. No acute events overnight. Patient reports no real change in her pain or weakness. She reports that she did have a bowel movement yesterday, though still has some abdominal discomfort. She had an episode of chest pain which resolved with PRN supplemental O2. She denies any further episodes of chest pain. Denies cough, hemoptysis, nausea, vomiting, diarrhea, fever, or chills. Objective - Vital Signs/Intake and Output Vital Signs (last 24 hours): Temp Pulse Resp BP Pulse Ox 99.0 F 105 H 22 93/55 L 96 12/19/17 06:00 12/19/17 06:00 12/19/17 06:00 12/19/17 06:00 12/19/17 06:00 Intake and Output: 12/19/17 12/19/17 06:59 18:59 Intake Total 360 Output Total 300 Balance 60 - Medications Medications: Current Medications Acetaminophen (Tylenol 325mg Tab) 650 mg PO Q4H PRN PRN Reason: Fever >100.4 F Last Admin: 12/11/17 09:39 Dose: 650 mg Alprazolam (Xanax) 0.5 mg PO TID PRN; Protocol PRN Reason: Anxiety Last Admin: 12/12/17 23:12 Dose: 0.5 mg Aspirin (Ecotrin) 81 mg PO DAILY [facility] Last Admin: 12/19/17 10:32 Dose: 81 mg Cyanocobalamin (Vitamin B12 1000 Mcg Tab) 1,000 mcg PO DAILY [facility] Last Admin: 12/19/17 10:32 Dose: 1,000 mcg Docusate Sodium (Colace) 100 mg PO BID [facility] Last Admin: 12/19/17 10:32 Dose: 100 mg Ferrous Sulfate (Feosol) 324 mg PO TID [facility] Last Admin: 12/19/17 10:33 Dose: 324 mg Ibuprofen (Motrin Tab) 600 mg PO Q6H PRN PRN Reason: Pain, moderate (4-7) Last Admin: 12/11/17 22:40 Dose: 600 mg Multivitamins/Minerals (Therapeutic-M Tab) 1 tab PO 0800 [facility] Last Admin: 12/19/17 10:32 Dose: 1 tab Pantoprazole Sodium (Protonix Ec Tab) 40 mg PO 0600 [facility] Last Admin: 12/19/17 06:15 Dose: 40 mg Paroxetine HCl (Paxil) 10 mg PO HS [facility] Last Admin: 12/18/17 22:00 Dose: Not Given Polyethylene Glycol (Miralax) 17 gm PO BID [facility] Last Admin: 12/19/17 10:33 Dose: Not Given Rivaroxaban (Xarelto) 15 mg PO BID [facility] PRN Reason: Protocol Last Admin: 12/19/17 10:33 Dose: 15 mg Zaleplon (Sonata) 5 mg PO HS PRN PRN Reason: Insomnia - Labs Labs: 12/19/17 07:00 12/19/17 07:00 PT 17.3 SECONDS (9.4-12.5) H 12/10/17 19:45 INR 1.50 (0.93-1.08) H 12/10/17 19:45 APTT 61.4 Seconds (25.1-36.5) H 12/15/17 05:30 - Constitutional Appears: Non-toxic, No Acute Distress - Head Exam Head Exam: ATRAUMATIC, NORMOCEPHALIC - Eye Exam Eye Exam: EOMI, Normal appearance, PERRL - ENT Exam ENT Exam: Mucous Membranes Moist - Neck Exam Neck Exam: Normal Inspection - Respiratory Exam Respiratory Exam: Clear to Ausculation Bilateral, NORMAL BREATHING PATTERN - Cardiovascular Exam Cardiovascular Exam: RRR, +S1, +S2 - GI/Abdominal Exam GI & Abdominal Exam: Soft, Normal Bowel Sounds. absent: Tenderness - Extremities Exam Extremities Exam: absent: Calf Tenderness, Pedal Edema - Neurological Exam Neurological Exam: Alert, Awake, Oriented x3 Neuro motor strength exam: Left Upper Extremity: 5, Right Upper Extremity: 5, Left Lower Extremity: 5, Right Lower Extremity: 5 - Psychiatric Exam Psychiatric exam: Flat Affect, Normal Mood - Skin Skin Exam: Dry, Intact, Normal Color Assessment and Plan - Assessment and Plan (Free Text) Assessment: 27 year old female with past medical history of ovarian cysts who was admitted for evaluation and treatment of cough with blood tinged sputum production. Currently being treated for unprovoked first pulmonary embolus (saddle embolus) , RLE DVT with Xarelto, as well as b/l LE weakness. She is hemodynamically stable and is getting out of bed to chair as tolerated; still having significant difficulty with ambulation. Patient is anxious at baseline. Plan: 1. Cough/Hemoptysis 2/2 unprovoked DVT/PE - Continue Xarelto - Patient is no longer tachycardic on exam today; HR 80's - Hypercoagulable workup negative; should be repeated as outpatient after 6 months of therapy and confirmed resolution of DVT and PE - Hem/Onc on consult; appreciate recs - Cardio on consult; appreciate recs - signed off 2. Anemia - H/H improving - Continue B12 supplements - Continue PO iron 3. Abdominal Discomfort; Constipation - Patient had BM yesterday; has bowel movement approximately every 2-3 days - Continue Colace and Miralax 4. Anxiety - cont Xanax 0.5mg PO TID PRN - cont Sonata 5mg HS PRN - Start Paxil 10mg PO HS per psych - Psych consult; appreciate recs - Patient does not meet criteria for inpatient psych unit, but would benefit from from outpatient therapist (per psych recs) 5. Back Pain and Leg Weakness - Likely 2/2 deconditioning vs psychogenic vs myopathy vs neuropathy - Patient should have outpatient EMG per neuro - high risk fall precautions - PT/OT evaluation and treatment - Patient still not safe to discharge, cannot ambulate independantly; requires acute rehab but does not have insurance to cover it; medicaid pending - Neuro on consult; appreciate recs 6. Prophylaxis - DVT ppx - Xarelto - GI ppx - protonix PO Patient was seen, examined and discussed with attending, Dr. Duran <Larry Duran - Last Filed: 12/26/17 21:30> Objective - Vital Signs/Intake and Output Vital Signs (last 24 hours): Temp Pulse Resp BP Pulse Ox 98.5 F 88 20 136/75 96 12/24/17 14:00 12/24/17 14:00 12/24/17 14:00 12/24/17 14:00 12/24/17 14:00 - Labs Labs: 12/24/17 05:30 12/24/17 05:30 PT 17.3 SECONDS (9.4-12.5) H 12/10/17 19:45 INR 1.50 (0.93-1.08) H 12/10/17 19:45 APTT 61.4 Seconds (25.1-36.5) H 12/15/17 05:30 Attending/Attestation - Attestation I have personally seen and examined this patient.: Yes I have fully participated in the care of the patient.: Yes I have reviewed all pertinent clinical information, including history, physical exam and plan: Yes Notes (Text): I have seen and examined the patient at bedside. Agree with the above note with the following additions/ exceptions: Briefly this is 27 year old female who was admitted with first episode of unprovoked saddle PE and RLE DVT. Patient denies any cough, hemoptysis, chest pain, dyspnea or any other complaints. Reports that her anxiety and leg pain is better however she continues to complain of bilateral leg weakness. MRI of lumbosacral spine reviewed which is unremarkable. Neuro consult appreciated and they recommended MRI thoracic spine and CTA Abdomen which was also normal. Psych re eval was requested and patient was started on paxil. Continue Xarelto. Echo revealed ef of 50% and moderately to severely reduced RV systolic function. Cardiology consult appreciated. PESI is class 1 or low risk and sPESI is also 0. Antibiotics stopped. Encourage use of incentive spirometer. Continue xanax for anxiety. PT recommended acute rehab. She still complains of constipation. Will continue stool softeners. Upon discharge the patient will follow-up with PMD Dr Gerda izquierdo. Dr Larry Duran
--- NOTE | 2017-12-19 21:16 | PN ---
DATE: 12/19/2017 SUBJECTIVE: Patient is in bed, in no acute distress. PHYSICAL EXAMINATION: VITAL SIGNS: Patient's temperature of 98, blood pressure is 100/50, respiratory rate 16. HEENT: Unremarkable. NECK: Supple. LUNGS: Have decreased breath sounds. HEART: Normal S1, S2. ABDOMEN: Soft. LABORATORY EXAMINATION: Reveals a white count of 5.5, hemoglobin of 10. BUN of 10, creatinine of 0.7. Procalcitonin is now noted to be 0.14. Urinalysis is noted. HIV is negative. Review of orders reveals the patient to have off of antibiotics. ASSESSMENT AND PLAN: A 27-year-old female with severe sepsis, hypoxic respiratory failure, right-sided pulmonary emboli status post treatment, currently off of antibiotics. The patient is at risk for developing nosocomial infections. Nikhil Gonzalez MD
--- NOTE | 2017-12-20 01:06 | CON ---
DATE: HISTORY OF PRESENT ILLNESS: Patient is a 27-year-old female with history of anxiety and episodes of depression. Psychiatry has been following on the medical floor for the aforementioned symptoms. I met with the patient last week and Dr. Martin followed up with the patient after I signed off on patient due to a presentation of new symptoms, which were not explained by medical issues. Patient at that time reported feeling anxious, but she denied any depressed or any thoughts of harming others or herself and she was generally coherent and responded to relevant questions. Paxil was started at the time for her anxiety symptoms and history of depression and patient took one dose, but refused the dose last night. I met with the patient at bedside today and she continues to be alert and quite oriented to circumstances, location, month, and year. Her eye contact is good. Her focus is fair. Responses continued to be coherent, logical, and goal directed. She reports having a lot of anxiety related to her current medical issues and lower extremity weakness and she reports having a lot of concern about being discharged before she is physically able to care for herself as she does not want to burden her sister who is already caring for their 84-year-old grandmother and the sister is also caring for her three children. Patient wants to be "semi functional before leaving the hospital." Patient is not suicidal. She is hopeful that her medical circumstances are improving. Regarding her medical symptoms, she indicates that the onset of weakness in her lower extremities and inability to walk as well as urinating and defecating on herself were instances that never occurred prior to this week. She indicates that sometimes she feels too weak to be able to make it to the commode in time, so she ends up urinating on herself and when she does have urge to urinate, very difficult to stop stream. Regarding Paxil, patient was not aware that this was a p.r.n. medication. I reviewed the indications of the medication, possible benefit, possible side effects, therapeutic latency, and need to take this medication so that the therapeutic levels are being achieved in her and patient agrees to continue taking this medication. Vitals and labs were reviewed by this provider. RELEVANT PSYCHIATRIC MEDICATIONS: Include Xanax 0.5 mg p.o. t.i.d., Paxil 10 mg p.o. at bedtime, Sonata 5 mg at bedtime p.r.n. IMPRESSION: Anxiety disorder, not otherwise specified. Patient clearly is suffering from anxiety symptoms. She appears anxious when I speak to her and considering the experiences that she has been through, the anxiety is reasonable. However, it is unclear whether this anxiety is presentation and is associated with somatization disorder. In any event, her anxiety should be treated and we have to consider rule out generalized anxiety disorder, rule out social phobia, rule out social anxiety disorder, and rule out somatization and conversion disorder. Patient has a history of depression by history though she denies having depressive symptoms at this time. RECOMMENDATION: We will continue with current recommendation of Paxil 10 mg at bedtime, Sonata, and Xanax. No acute indication of change in this recommendations at this time and patient is going to continue taking these medications. Medical team and consults should with her as well especially in regard to the results of her imaging studies. Regarding activity, I agreed with Dr. Martin. Psychiatrically, she is not danger to herself or others. She wants to improve. She is not overly disorganized. She would benefit from outpatient therapy and psychiatric management when she is ultimately discharged. Mykel Rich MD
[2017-12-20] MEDS: Pantoprazole 40 mg EC Tab PO SCH (05:06)
[2017-12-20 06:29] LABS: BASO # 0.02 K/mm3 (0.0-2.0); BASO % 0.3 % (0.0-3.0); EOS # 0.2 (0.0-0.7); EOS % 3.8 % (1.5-5.0); GRAN # 3.98 (1.4-6.5); GRAN % 64.9 % (50.0-68.0); HEMOGLOBIN 9.9 g/dL (12.0-16.0); LYMPH # 1.3 (1.2-3.4); LYMPH % 21.7 % (22.0-35.0); MEAN CELL VOLUME 110.4 fl (80.0-105.0); MEAN CORPUSCULAR HEMOGLOBIN 34.3 pg (25.0-35.0); MEAN PLATELET VOLUME 9.2 fl (7.0-11.0); MONO # 0.6 (0.1-0.6); MONO % 9.3 % (1.0-6.0); RBC 2.89 10^6/uL (3.5-6.1); RED CELL DISTRIBUTION WIDTH 14.6 % (11.5-14.5); WHITE BLOOD COUNT 6.1 10^3/ul (4.5-11.0)
[2017-12-20 07:13] LABS: ALB/GLOB RATIO 1.1 (1.1-1.8); ALBUMIN 3.2 g/dL (3.0-4.8); ALT/SGPT 37 U/L (7-56); AST/SGOT 34 U/L (14-36); BLOOD UREA NITROGEN 13 mg/dL (7-21); CALCIUM 9.5 mg/dL (8.4-10.5); GFR AFRICAN-AMERICAN > 60; GFR NON-AFRICAN AMERICAN > 60
[2017-12-20] MEDS: POLYETHYLENE GLYCOL 3350 17 GM/Dose PACKET PO SCH ×3 (09:19→17:14)
[2017-12-20] MEDS: Multivitamin With Minerals Tab PO SCH (09:20)
--- NOTE | 2017-12-20 12:33 | CP.PCM.PN ---
<Ava Fitzpatrick - Last Filed: 12/20/17 12:25> Subjective - Date & Time of Evaluation Date of Evaluation: 12/20/17 Time of Evaluation: 07:30 - Subjective Subjective: Ava Fitzpatrick DO PGY1 - IM Progress Note Patient seen and examined at bedside. No acute events overnight. Patient reports an episode of urinary incontinence early this morning. She is still having weakness and difficulty with ambulation. She did go on the stationary bicycle yesterday with physical therapy and felt good using it. She denies any chest pain, shortness of breath, abdominal pain, nausea, vomiting, diarrhea, fever, or chills. Objective - Vital Signs/Intake and Output Vital Signs (last 24 hours): Temp Pulse Resp BP Pulse Ox 98.7 F 84 17 95/59 L 96 12/20/17 08:15 12/20/17 08:15 12/20/17 08:15 12/20/17 08:15 12/20/17 08:15 Intake and Output: 12/20/17 12/20/17 06:59 18:59 Intake Total 420 Output Total 600 Balance -180 - Medications Medications: Current Medications Acetaminophen (Tylenol 325mg Tab) 650 mg PO Q4H PRN PRN Reason: Fever >100.4 F Last Admin: 12/11/17 09:39 Dose: 650 mg Alprazolam (Xanax) 0.5 mg PO TID PRN; Protocol PRN Reason: Anxiety Last Admin: 12/12/17 23:12 Dose: 0.5 mg Cyanocobalamin (Vitamin B12 1000 Mcg Tab) 1,000 mcg PO DAILY [facility] Last Admin: 12/20/17 09:20 Dose: 1,000 mcg Docusate Sodium (Colace) 100 mg PO BID [facility] Last Admin: 12/20/17 09:19 Dose: 100 mg Ferrous Sulfate (Feosol) 324 mg PO TID [facility] Last Admin: 12/20/17 09:19 Dose: 324 mg Ibuprofen (Motrin Tab) 600 mg PO Q6H PRN PRN Reason: Pain, moderate (4-7) Last Admin: 12/19/17 21:55 Dose: 600 mg Multivitamins/Minerals (Therapeutic-M Tab) 1 tab PO 0800 [facility] Last Admin: 12/20/17 09:20 Dose: 1 tab Pantoprazole Sodium (Protonix Ec Tab) 40 mg PO 0600 [facility] Last Admin: 12/20/17 05:06 Dose: 40 mg Paroxetine HCl (Paxil) 10 mg PO HS [facility] Last Admin: 12/19/17 21:55 Dose: 10 mg Polyethylene Glycol (Miralax) 17 gm PO BID [facility] Last Admin: 12/20/17 09:25 Dose: Not Given Rivaroxaban (Xarelto) 15 mg PO BID [facility] PRN Reason: Protocol Last Admin: 12/20/17 09:20 Dose: 15 mg Zaleplon (Sonata) 5 mg PO HS PRN PRN Reason: Insomnia - Labs Labs: 12/20/17 05:45 12/20/17 05:45 PT 17.3 SECONDS (9.4-12.5) H 12/10/17 19:45 INR 1.50 (0.93-1.08) H 12/10/17 19:45 APTT 61.4 Seconds (25.1-36.5) H 12/15/17 05:30 - Constitutional Appears: Non-toxic, No Acute Distress - Head Exam Head Exam: ATRAUMATIC, NORMOCEPHALIC - Eye Exam Eye Exam: EOMI, Normal appearance, PERRL - ENT Exam ENT Exam: Mucous Membranes Moist - Neck Exam Neck Exam: Normal Inspection - Respiratory Exam Respiratory Exam: Clear to Ausculation Bilateral, NORMAL BREATHING PATTERN - Cardiovascular Exam Cardiovascular Exam: RRR, +S1, +S2. absent: Tachycardia - GI/Abdominal Exam GI & Abdominal Exam: Soft, Normal Bowel Sounds. absent: Tenderness - Extremities Exam Extremities Exam: absent: Calf Tenderness, Pedal Edema - Neurological Exam Neurological Exam: Alert, Awake, Oriented x3 Neuro motor strength exam: Left Upper Extremity: 5, Right Upper Extremity: 5, Left Lower Extremity: 5, Right Lower Extremity: 5 Additional comments: Lack of proprioception in toes of bilateral feet Upgoing plantars bilaterally Sustained clonus bilaterally Positive Gallo sign bilatearlly - Psychiatric Exam Psychiatric exam: Anxious, Normal Affect - Skin Skin Exam: Dry, Intact, Normal Color Assessment and Plan - Assessment and Plan (Free Text) Assessment: 27 year old female with past medical history of ovarian cysts who was admitted for evaluation and treatment of cough with blood tinged sputum production. Currently being treated for unprovoked first pulmonary embolus (saddle embolus) , RLE DVT with Xarelto, as well as b/l LE weakness. She is hemodynamically stable and is getting out of bed to chair as tolerated; still having significant difficulty with ambulation. Patient is anxious at baseline. Plan: 1. Unprovoked DVT/PE - Continue Xarelto - Hypercoagulable workup negative; should be repeated as outpatient after 6 months of therapy and confirmed resolution of DVT and PE - Hem/Onc on consult; appreciate recs - Cardio on consult; appreciate recs - signed off 2. Anemia - H/H improving - Continue B12 supplements - Continue PO iron 3. Abdominal Discomfort; Constipation - Stable - Continue Colace and Miralax 4. Anxiety - cont Xanax 0.5mg PO TID PRN - cont Sonata 5mg HS PRN - cont Paxil 10mg PO HS per psych - Psych consult; appreciate recs - Patient does not meet criteria for inpatient psych unit, but would benefit from from outpatient therapist (per psych recs) 5. Back Pain and Leg Weakness - Likely 2/2 deconditioning vs psychogenic vs myopathy vs neuropathy - UMN lesion signs noted on exam today; ordered C-spine MRI to r/u compression vs plaques - Patient should have outpatient EMG per neuro - high risk fall precautions - PT/OT evaluation and treatment - Patient still not safe to discharge, cannot ambulate independantly; requires acute rehab but does not have insurance to cover it; medicaid pending - Neuro on consult; appreciate recs 6. Prophylaxis - DVT ppx - Xarelto - GI ppx - protonix PO Patient was seen, examined and discussed with attending, Dr. Duran <Long Liu - Last Filed: 12/20/17 16:48> Objective - Vital Signs/Intake and Output Vital Signs (last 24 hours): Temp Pulse Resp BP Pulse Ox 98.7 F 84 17 95/59 L 96 12/20/17 08:15 12/20/17 08:15 12/20/17 08:15 12/20/17 08:15 12/20/17 08:15 Intake and Output: 12/20/17 12/20/17 06:59 18:59 Intake Total 420 925 Output Total 600 Balance -180 925 - Medications Medications: Current Medications Acetaminophen (Tylenol 325mg Tab) 650 mg PO Q4H PRN PRN Reason: Fever >100.4 F Last Admin: 12/11/17 09:39 Dose: 650 mg Alprazolam (Xanax) 0.5 mg PO TID PRN; Protocol PRN Reason: Anxiety Last Admin: 12/12/17 23:12 Dose: 0.5 mg Cyanocobalamin (Vitamin B12 1000 Mcg Tab) 1,000 mcg PO DAILY [facility] Last Admin: 12/20/17 09:20 Dose: 1,000 mcg Docusate Sodium (Colace) 100 mg PO BID [facility] Last Admin: 12/20/17 09:19 Dose: 100 mg Ferrous Sulfate (Feosol) 324 mg PO TID [facility] Last Admin: 12/20/17 09:19 Dose: 324 mg Ibuprofen (Motrin Tab) 600 mg PO Q6H PRN PRN Reason: Pain, moderate (4-7) Last Admin: 12/19/17 21:55 Dose: 600 mg Multivitamins/Minerals (Therapeutic-M Tab) 1 tab PO 0800 [facility] Last Admin: 12/20/17 09:20 Dose: 1 tab Pantoprazole Sodium (Protonix Ec Tab) 40 mg PO 0600 [facility] Last Admin: 12/20/17 05:06 Dose: 40 mg Paroxetine HCl (Paxil) 10 mg PO HS [facility] Last Admin: 12/19/17 21:55 Dose: 10 mg Polyethylene Glycol (Miralax) 17 gm PO BID [facility] Last Admin: 12/20/17 09:25 Dose: Not Given Rivaroxaban (Xarelto) 15 mg PO BID [facility] PRN Reason: Protocol Last Admin: 12/20/17 09:20 Dose: 15 mg Zaleplon (Sonata) 5 mg PO HS PRN PRN Reason: Insomnia - Labs Labs: 12/20/17 05:45 12/20/17 05:45 PT 17.3 SECONDS (9.4-12.5) H 12/10/17 19:45 INR 1.50 (0.93-1.08) H 12/10/17 19:45 APTT 61.4 Seconds (25.1-36.5) H 12/15/17 05:30 Attending/Attestation - Attestation I have personally seen and examined this patient.: Yes I have fully participated in the care of the patient.: Yes I have reviewed all pertinent clinical information, including history, physical exam and plan: Yes Notes (Text): 12/20/17 16:44 Attending note; Patient seen and examined with resident. Patient is a 27 year old female who was admitted with first episode of unprovoked saddle pulmonary embolism and right lower extremity DVT. Patient denies any cough, hemoptysis, chest pain, dyspnea or any other complaints. Reports that her anxiety and leg pain is better however she continues to complain of bilateral leg weakness. Continue Xarelto. Currently patient is off oxygen. No tachycardia or hypoxemia. Ambulating with PT without oxygen. MRI of lumbosacral spine reviewed which is unremarkable. Neurology consult appreciated. MRI thoracic spine and CTA Abdomen which was also normal. MRI of the cervical spine ordered. patient was started on paxil by psychiatrist. Continue xanax for anxiety. PT recommended acute rehab. Case discussed with director of casework department for rehabilitation placement. Pending Medicaid. Paperwork in process. Upon discharge the patient will follow-up with PMD Dr Gerda izquierdo.
[2017-12-20] MEDS ORDERED: Gadodiamide 287 MG/ML VIAL (15ML) IV ONE (14:31)
--- NOTE | 2017-12-20 16:09 | MRI ---
PROCEDURE: MR CERVICAL SPINE WITH AND WITHOUT CONTRAST HISTORY: r/o compression, plaques COMPARISON: None available. TECHNIQUE: Multiecho multiplanar sequences were performed through the cervical spine with and without the use of intravenous contrast. 15 cc of Omniscan FINDINGS: There is mild reversal of the normal lordotic curvature Craniocervical junction unremarkable. Vertebral body heights preserved. No marrow signal abnormality. Normal cervical cord. No paraspinal abnormality. No abnormal enhancement C2-3: No disc herniation, spinal canal stenosis or neural foraminal narrowing. C3-4: No disc herniation, spinal canal stenosis or neural foraminal narrowing. C4-5: No disc herniation, spinal canal stenosis or neural foraminal narrowing. C5-C6: No disc herniation, spinal canal stenosis or neural foraminal narrowing. C6-C7: No disc herniation, spinal canal stenosis or neuroforaminal narrowing. C7-T1: No disc herniation, spinal canal stenosis or neural foraminal narrowing. OTHER FINDINGS: None. IMPRESSION: Unremarkable pre and post contrast MRI of the cervical spine.
[2017-12-21] MEDS: Pantoprazole 40 mg EC Tab PO SCH (05:26)
[2017-12-21 06:27] LABS: BASO # 0.02 K/mm3 (0.0-2.0); BASO % 0.3 % (0.0-3.0); EOS # 0.2 (0.0-0.7); EOS % 4.1 % (1.5-5.0); GRAN # 3.82 (1.4-6.5); GRAN % 65.5 % (50.0-68.0); HEMOGLOBIN 10.6 g/dL (12.0-16.0); LYMPH # 1.4 (1.2-3.4); LYMPH % 23.3 % (22.0-35.0); MEAN CELL VOLUME 110.1 fl (80.0-105.0); MEAN CORPUSCULAR HEMOGLOBIN 34.4 pg (25.0-35.0); MEAN CORPUSCULAR HGB CONC 31.3 g/dl (31.0-37.0); MEAN PLATELET VOLUME 9.1 fl (7.0-11.0); MONO # 0.4 (0.1-0.6); MONO % 6.8 % (1.0-6.0); RBC 3.08 10^6/uL (3.5-6.1); RED CELL DISTRIBUTION WIDTH 14.7 % (11.5-14.5); WHITE BLOOD COUNT 5.8 10^3/ul (4.5-11.0)
[2017-12-21 06:48] LABS: ALB/GLOB RATIO 1.2 (1.1-1.8); ALBUMIN 3.6 g/dL (3.0-4.8); ALT/SGPT 41 U/L (7-56); AST/SGOT 38 U/L (14-36); BLOOD UREA NITROGEN 10 mg/dL (7-21); CALCIUM 9.8 mg/dL (8.4-10.5); GFR AFRICAN-AMERICAN > 60; GFR NON-AFRICAN AMERICAN > 60
[2017-12-21] MEDS: Multivitamin With Minerals Tab PO SCH (09:38)
[2017-12-21] MEDS: POLYETHYLENE GLYCOL 3350 17 GM/Dose PACKET PO SCH ×2 (09:39→18:25)
--- NOTE | 2017-12-21 12:14 | CP.PCM.PN ---
<Ava Fitzpatrick - Last Filed: 12/21/17 12:59> Subjective - Date & Time of Evaluation Date of Evaluation: 12/21/17 Time of Evaluation: 07:30 - Subjective Subjective: Ava Fitzpatrick DO PGY1 - IM Progress Note Patient seen and examined at bedside. No acute events overnight. Patient reports that she was able to walk yesterday with the physical therapists. She again had an episode of urinary incontinence yesterday. Still feels shaky and weak with ambulation, but says it "felt good to walk". She denies any chest pain , shortness of breath, abdominal pain, nausea, vomiting, diarrhea, fever, or chills. Objective - Vital Signs/Intake and Output Vital Signs (last 24 hours): Temp Pulse Resp BP Pulse Ox 97.8 F 103 H 20 103/63 96 12/21/17 08:11 12/21/17 08:11 12/21/17 08:11 12/21/17 08:11 12/21/17 08:11 Intake and Output: 12/21/17 12/21/17 06:59 18:59 Intake Total 480 Balance 480 - Medications Medications: Current Medications Acetaminophen (Tylenol 325mg Tab) 650 mg PO Q4H PRN PRN Reason: Fever >100.4 F Last Admin: 12/11/17 09:39 Dose: 650 mg Alprazolam (Xanax) 0.5 mg PO TID PRN; Protocol PRN Reason: Anxiety Last Admin: 12/12/17 23:12 Dose: 0.5 mg Cyanocobalamin (Vitamin B12 1000 Mcg Tab) 1,000 mcg PO DAILY [facility] Last Admin: 12/21/17 09:38 Dose: 1,000 mcg Docusate Sodium (Colace) 100 mg PO BID [facility] Last Admin: 12/21/17 09:36 Dose: 100 mg Ferrous Sulfate (Feosol) 324 mg PO TID [facility] Last Admin: 12/21/17 09:38 Dose: 324 mg Ibuprofen (Motrin Tab) 600 mg PO Q6H PRN PRN Reason: Pain, moderate (4-7) Last Admin: 12/19/17 21:55 Dose: 600 mg Multivitamins/Minerals (Therapeutic-M Tab) 1 tab PO 0800 [facility] Last Admin: 12/21/17 09:38 Dose: 1 tab Pantoprazole Sodium (Protonix Ec Tab) 40 mg PO 0600 [facility] Last Admin: 12/21/17 05:26 Dose: 40 mg Paroxetine HCl (Paxil) 10 mg PO HS [facility] Last Admin: 12/20/17 21:48 Dose: 10 mg Polyethylene Glycol (Miralax) 17 gm PO BID [facility] Last Admin: 12/21/17 09:39 Dose: Not Given Rivaroxaban (Xarelto) 15 mg PO BID [facility] PRN Reason: Protocol Last Admin: 12/21/17 09:38 Dose: 15 mg Zaleplon (Sonata) 5 mg PO HS PRN PRN Reason: Insomnia - Labs Labs: 12/21/17 05:30 12/21/17 05:30 PT 17.3 SECONDS (9.4-12.5) H 12/10/17 19:45 INR 1.50 (0.93-1.08) H 12/10/17 19:45 APTT 61.4 Seconds (25.1-36.5) H 12/15/17 05:30 - Additional Findings Additional findings: - Constitutional Appears: Non-toxic, No Acute Distress - Head Exam Head Exam: ATRAUMATIC, NORMOCEPHALIC - Eye Exam Eye Exam: EOMI, Normal appearance, PERRL - ENT Exam ENT Exam: Mucous Membranes Moist - Neck Exam Neck Exam: Normal Inspection - Respiratory Exam Respiratory Exam: Clear to Ausculation Bilateral, NORMAL BREATHING PATTERN - Cardiovascular Exam Cardiovascular Exam: RRR, +S1, +S2. absent: Tachycardia - GI/Abdominal Exam GI & Abdominal Exam: Soft, Normal Bowel Sounds. absent: Tenderness - Extremities Exam Extremities Exam: absent: Calf Tenderness, Pedal Edema - Neurological Exam Neurological Exam: Alert, Awake, Oriented x3 Neuro motor strength exam: Left Upper Extremity: 5, Right Upper Extremity: 5, Left Lower Extremity: 5, Right Lower Extremity: 5 - Psychiatric Exam Psychiatric exam: Anxious, Normal Affect - Skin Skin Exam: Dry, Intact, Normal Color Assessment and Plan - Assessment and Plan (Free Text) Assessment: 27 year old female with past medical history of ovarian cysts who was admitted for evaluation and treatment of cough with blood tinged sputum production. Currently being treated for unprovoked first pulmonary embolus (saddle embolus) , RLE DVT with Xarelto, as well as b/l LE weakness. She is hemodynamically stable and is getting out of bed to chair as tolerated; still having significant difficulty with ambulation. Patient is anxious at baseline. Plan: 1. Unprovoked DVT/PE - Continue Xarelto - Hypercoagulable workup negative; should be repeated as outpatient after 6 months of therapy and confirmed resolution of DVT and PE - Hem/Onc on consult; appreciate recs - Cardio on consult; appreciate recs - signed off 2. Anemia - H/H improving - Continue B12 supplements - Continue PO iron 3. Abdominal Discomfort; Constipation - Stable - Continue Colace and Miralax 4. Anxiety - cont Xanax 0.5mg PO TID PRN - cont Sonata 5mg HS PRN - cont Paxil 10mg PO HS per psych - Psych consult; appreciate recs - Patient does not meet criteria for inpatient psych unit, but would benefit from from outpatient therapist (per psych recs) 5. Back Pain and Leg Weakness - Likely 2/2 deconditioning vs psychogenic vs myopathy vs neuropathy - C-spine MRI done yesterday; no acute findings, unremarkable - Patient should have outpatient EMG per neuro - High risk fall precautions - PT/OT evaluation and treatment - Patient still not safe to discharge, cannot ambulate independantly; requires acute rehab but does not have insurance to cover it; medicaid pending - Neuro on consult; appreciate recs 6. Prophylaxis - DVT ppx - Xarelto - GI ppx - protonix PO Patient was seen, examined and discussed with attending, Dr. Liu <Long Liu - Last Filed: 12/21/17 18:27> Objective - Vital Signs/Intake and Output Vital Signs (last 24 hours): Temp Pulse Resp BP Pulse Ox 97.8 F 103 H 20 103/63 96 12/21/17 08:11 12/21/17 08:11 12/21/17 08:11 12/21/17 08:11 12/21/17 08:11 Intake and Output: 12/21/17 12/21/17 06:59 18:59 Intake Total 480 Balance 480 - Medications Medications: Current Medications Acetaminophen (Tylenol 325mg Tab) 650 mg PO Q4H PRN PRN Reason: Fever >100.4 F Last Admin: 12/11/17 09:39 Dose: 650 mg Alprazolam (Xanax) 0.5 mg PO TID PRN; Protocol PRN Reason: Anxiety Last Admin: 12/12/17 23:12 Dose: 0.5 mg Cyanocobalamin (Vitamin B12 1000 Mcg Tab) 1,000 mcg PO DAILY [facility] Last Admin: 12/21/17 09:38 Dose: 1,000 mcg Docusate Sodium (Colace) 100 mg PO BID [facility] Last Admin: 12/21/17 09:36 Dose: 100 mg Ferrous Sulfate (Feosol) 324 mg PO TID [facility] Last Admin: 12/21/17 14:46 Dose: 324 mg Ibuprofen (Motrin Tab) 600 mg PO Q6H PRN PRN Reason: Pain, moderate (4-7) Last Admin: 12/19/17 21:55 Dose: 600 mg Multivitamins/Minerals (Therapeutic-M Tab) 1 tab PO 0800 [facility] Last Admin: 12/21/17 09:38 Dose: 1 tab Pantoprazole Sodium (Protonix Ec Tab) 40 mg PO 0600 [facility] Last Admin: 12/21/17 05:26 Dose: 40 mg Paroxetine HCl (Paxil) 10 mg PO HS [facility] Last Admin: 12/20/17 21:48 Dose: 10 mg Polyethylene Glycol (Miralax) 17 gm PO BID [facility] Last Admin: 12/21/17 09:39 Dose: Not Given Rivaroxaban (Xarelto) 15 mg PO BID [facility] PRN Reason: Protocol Last Admin: 12/21/17 09:38 Dose: 15 mg Zaleplon (Sonata) 5 mg PO HS PRN PRN Reason: Insomnia - Labs Labs: 12/21/17 05:30 12/21/17 05:30 PT 17.3 SECONDS (9.4-12.5) H 12/10/17 19:45 INR 1.50 (0.93-1.08) H 12/10/17 19:45 APTT 61.4 Seconds (25.1-36.5) H 12/15/17 05:30 Attending/Attestation - Attestation I have personally seen and examined this patient.: Yes I have fully participated in the care of the patient.: Yes I have reviewed all pertinent clinical information, including history, physical exam and plan: Yes Notes (Text): 12/21/17 18:26 Attending note; Patient seen and examined with resident. Patient is a 27 year old female who was admitted with first episode of unprovoked saddle pulmonary embolism and right lower extremity DVT. Patient denies any cough, hemoptysis, chest pain, dyspnea or any other complaints. leg pain is better however she continues to complain of bilateral leg weakness. neurology evaluation appreciated. Recommend nerve conduction study and EMG as outpatient. Continue Xarelto. Currently patient is off oxygen. No tachycardia or hypoxemia. Ambulating with PT without oxygen. MRI of lumbosacral spine/MRI thoracic spine and CTA Abdomen which was also normal. MRI of the cervical spine is normal. patient was started on paxil by psychiatrist. Continue xanax for anxiety. PT recommended acute rehab. Case discussed with correctional counselor/case manager for rehabilitation placement. Pending Medicaid. Paperwork in process. Upon discharge the patient will follow-up with PMD Dr Gerda izquierdo.
--- NOTE | 2017-12-21 21:24 | PN ---
DATE: SUBJECTIVE: The patient was followed up today to make sure that the patient tolerates medications well. The patient is alert and oriented, pleasant and cooperative. Patient reported that Paxil gave her a good night sleep. The patient wants to continue that medication as outpatient. The patient also reported that she feels much better in regards to her mood and anxiety. The patient denied any thoughts of harming herself or others, denied intent or plan. The patient participates in treatment plan. The patient has multiple somatic complaints and inability to walk as per medical team. Neurology is on board as well as physical therapy also on board. PHYSICAL EXAMINATION: VITAL SIGNS: Stable. Temperature 97.8, pulse is 103 today, blood pressure 103/63, respiration 20, oxygen saturation is 96. MEDICATIONS: Reviewed. Tylenol, Xanax 0.5 mg three times a day, the patient is not tolerating for that medication, vitamin B12, Colace, Motrin, multivitamins, Protonix, Paxil 10 mg at the nighttime, MiraLax and Sonata at nighttime as needed. Labs reviewed. Reports reviewed. Notes reviewed and discussed with medical team. MENTAL STATUS EXAMINATION: The patient presents to be alert and oriented, pleasant and cooperative. Fair eye contact. Speech was normal rate, tone, quality and quantity. Mood described as feeling better. Affect was reactive, mood congruent. Thought process coherent and goal directed. Thought content, the patient denied visual, auditory or tactile hallucinations. Denied paranoid ideation. The patient denied thoughts of harming herself or others, denied intent or plan. Insight and judgment seems to be fair. Impulses are well controlled. IMPRESSION: As per history, most likely the patient has impulse control disorder, rule out adjustment disorder. The patient has a history of social anxiety. PLAN: Continue current management. The patient was provided with information about outpatient programs here in [place]. The patient was appreciated, was advised to take medication as prescribed. This sports book writer will sign off. The patient deemed to be not in danger to self or others. Should you have any questions, give me a call back. Ana Martin MD
[2017-12-22] MEDS: Pantoprazole 40 mg EC Tab PO SCH (05:33)
[2017-12-22 06:35] LABS: BASO # 0.01 K/mm3 (0.0-2.0); BASO % 0.2 % (0.0-3.0); EOS # 0.2 (0.0-0.7); EOS % 3.1 % (1.5-5.0); GRAN # 4.1 (1.4-6.5); GRAN % 67.2 % (50.0-68.0); HEMOGLOBIN 10.4 g/dL (12.0-16.0); LYMPH # 1.3 (1.2-3.4); LYMPH % 21.8 % (22.0-35.0); MEAN CELL VOLUME 110.9 fl (80.0-105.0); MEAN CORPUSCULAR HEMOGLOBIN 34.2 pg (25.0-35.0); MEAN CORPUSCULAR HGB CONC 30.9 g/dl (31.0-37.0); MEAN PLATELET VOLUME 9.5 fl (7.0-11.0); MONO # 0.5 (0.1-0.6); MONO % 7.7 % (1.0-6.0); RBC 3.04 10^6/uL (3.5-6.1); RED CELL DISTRIBUTION WIDTH 15.1 % (11.5-14.5); WHITE BLOOD COUNT 6.1 10^3/ul (4.5-11.0)
[2017-12-22 07:03] LABS: ALB/GLOB RATIO 1.2 (1.1-1.8); ALBUMIN 3.5 g/dL (3.0-4.8); ALT/SGPT 37 U/L (7-56); AST/SGOT 36 U/L (14-36); BLOOD UREA NITROGEN 9 mg/dL (7-21); GFR AFRICAN-AMERICAN > 60; GFR NON-AFRICAN AMERICAN > 60
[2017-12-22] MEDS: Multivitamin With Minerals Tab PO SCH (08:20)
[2017-12-22] MEDS: POLYETHYLENE GLYCOL 3350 17 GM/Dose PACKET PO SCH ×2 (09:20→17:44)
--- NOTE | 2017-12-22 12:50 | CP.PCM.PN ---
Subjective - Date & Time of Evaluation Date of Evaluation: 12/22/17 Time of Evaluation: 12:49 - Subjective Subjective: Ms. Perez was seen and examined at the bedside. She is alert, oriented. She denies any headache, dizziness, but complains of tingling sensation of bilateral feet. She denies pain and able to move bilateral lower extremities slowly. She further states of needing minimal assistance with transferring from bed to the bedside commode. She further claims of experiencing low back pain with prolonged supine position. There was n untoward events overnight. Objective - Vital Signs/Intake and Output Vital Signs (last 24 hours): Temp Pulse Resp BP Pulse Ox 98.7 F 82 18 104/62 96 12/22/17 08:44 12/22/17 08:44 12/22/17 08:44 12/22/17 08:44 12/22/17 08:44 Intake and Output: 12/22/17 12/22/17 06:59 18:59 Intake Total 540 Output Total 500 Balance 40 - Medications Medications: Current Medications Acetaminophen (Tylenol 325mg Tab) 650 mg PO Q4H PRN PRN Reason: Fever >100.4 F Last Admin: 12/11/17 09:39 Dose: 650 mg Alprazolam (Xanax) 0.5 mg PO TID PRN; Protocol PRN Reason: Anxiety Last Admin: 12/12/17 23:12 Dose: 0.5 mg Cyanocobalamin (Vitamin B12 1000 Mcg Tab) 1,000 mcg PO DAILY [facility] Last Admin: 12/22/17 09:20 Dose: 1,000 mcg Docusate Sodium (Colace) 100 mg PO BID [facility] Last Admin: 12/22/17 09:20 Dose: 100 mg Ferrous Sulfate (Feosol) 324 mg PO TID [facility] Last Admin: 12/22/17 09:20 Dose: 324 mg Ibuprofen (Motrin Tab) 600 mg PO Q6H PRN PRN Reason: Pain, moderate (4-7) Last Admin: 12/19/17 21:55 Dose: 600 mg Multivitamins/Minerals (Therapeutic-M Tab) 1 tab PO 0800 [facility] Last Admin: 12/22/17 08:20 Dose: 1 tab Pantoprazole Sodium (Protonix Ec Tab) 40 mg PO 0600 [facility] Last Admin: 12/22/17 05:33 Dose: 40 mg Paroxetine HCl (Paxil) 10 mg PO HS [facility] Last Admin: 12/21/17 21:47 Dose: 10 mg Polyethylene Glycol (Miralax) 17 gm PO BID [facility] Last Admin: 12/22/17 09:20 Dose: 17 gm Rivaroxaban (Xarelto) 15 mg PO BID [facility] PRN Reason: Protocol Last Admin: 12/22/17 09:21 Dose: 15 mg Zaleplon (Sonata) 5 mg PO HS PRN PRN Reason: Insomnia - Labs Labs: 12/22/17 06:10 12/22/17 06:10 PT 17.3 SECONDS (9.4-12.5) H 12/10/17 19:45 INR 1.50 (0.93-1.08) H 12/10/17 19:45 APTT 61.4 Seconds (25.1-36.5) H 12/15/17 05:30 - Constitutional Appears: No Acute Distress - Head Exam Head Exam: NORMAL INSPECTION - Neurological Exam Neurological Exam: Alert, Awake, Oriented x3 Neuro motor strength exam: Left Upper Extremity: 5, Right Upper Extremity: 5, Left Lower Extremity: 3, Right Lower Extremity: 3 Additional comments: She is able to move bilateral lower extremities, but weak. Sensation remains intact and equal. Assessment and Plan (1) Leg weakness Assessment & Plan: Case discussed with Dr. Mary, continue all current medical, physical, and occupational therapies. Recommend MRI of the brain without contrast to evaluate any brain pathology causing her BLE weakness. Recommend [facility] as an outpatient with Dr. Lore Vann Status: Acute
--- NOTE | 2017-12-22 13:34 | CP.PCM.PN ---
<Ava Fitzpatrick - Last Filed: 12/22/17 13:31> Subjective - Date & Time of Evaluation Date of Evaluation: 12/22/17 Time of Evaluation: 07:30 - Subjective Subjective: Ava Fitzpatrick DO PGY1 - IM Progress Note Patient seen and examined at bedside. No acute events overnight. Patient reports that she was able to walk to the nursing station with the physical therapists yesterday. She denies any new pain, cough, chest pain, shortness of breath, hemoptysis, fever, chills, or dysuria. She has not had any further episodes of urinary incontinence. Objective - Vital Signs/Intake and Output Vital Signs (last 24 hours): Temp Pulse Resp BP Pulse Ox 98.7 F 82 18 104/62 96 12/22/17 08:44 12/22/17 08:44 12/22/17 08:44 12/22/17 08:44 12/22/17 08:44 Intake and Output: 12/22/17 12/22/17 06:59 18:59 Intake Total 540 Output Total 500 Balance 40 - Medications Medications: Current Medications Acetaminophen (Tylenol 325mg Tab) 650 mg PO Q4H PRN PRN Reason: Fever >100.4 F Last Admin: 12/11/17 09:39 Dose: 650 mg Alprazolam (Xanax) 0.5 mg PO TID PRN; Protocol PRN Reason: Anxiety Last Admin: 12/12/17 23:12 Dose: 0.5 mg Cyanocobalamin (Vitamin B12 1000 Mcg Tab) 1,000 mcg PO DAILY [facility] Last Admin: 12/22/17 09:20 Dose: 1,000 mcg Docusate Sodium (Colace) 100 mg PO BID [facility] Last Admin: 12/22/17 09:20 Dose: 100 mg Ferrous Sulfate (Feosol) 324 mg PO TID [facility] Last Admin: 12/22/17 09:20 Dose: 324 mg Ibuprofen (Motrin Tab) 600 mg PO Q6H PRN PRN Reason: Pain, moderate (4-7) Last Admin: 12/19/17 21:55 Dose: 600 mg Multivitamins/Minerals (Therapeutic-M Tab) 1 tab PO 0800 [facility] Last Admin: 12/22/17 08:20 Dose: 1 tab Pantoprazole Sodium (Protonix Ec Tab) 40 mg PO 0600 [facility] Last Admin: 12/22/17 05:33 Dose: 40 mg Paroxetine HCl (Paxil) 10 mg PO HS [facility] Last Admin: 12/21/17 21:47 Dose: 10 mg Polyethylene Glycol (Miralax) 17 gm PO BID [facility] Last Admin: 12/22/17 09:20 Dose: 17 gm Rivaroxaban (Xarelto) 15 mg PO BID [facility] PRN Reason: Protocol Last Admin: 12/22/17 09:21 Dose: 15 mg Zaleplon (Sonata) 5 mg PO HS PRN PRN Reason: Insomnia - Labs Labs: 12/22/17 06:10 12/22/17 06:10 PT 17.3 SECONDS (9.4-12.5) H 12/10/17 19:45 INR 1.50 (0.93-1.08) H 12/10/17 19:45 APTT 61.4 Seconds (25.1-36.5) H 12/15/17 05:30 - Additional Findings Additional findings: - Constitutional Appears: Non-toxic, No Acute Distress - Head Exam Head Exam: ATRAUMATIC, NORMOCEPHALIC - Eye Exam Eye Exam: EOMI, Normal appearance, PERRL - ENT Exam ENT Exam: Mucous Membranes Moist - Neck Exam Neck Exam: Normal Inspection - Respiratory Exam Respiratory Exam: Clear to Ausculation Bilateral, NORMAL BREATHING PATTERN - Cardiovascular Exam Cardiovascular Exam: RRR, +S1, +S2. absent: Tachycardia - GI/Abdominal Exam GI & Abdominal Exam: Soft, Normal Bowel Sounds. absent: Tenderness - Extremities Exam Extremities Exam: absent: Calf Tenderness, Pedal Edema - Neurological Exam Neurological Exam: Alert, Awake, Oriented x3, +clonus 15 beats, nonfatigueable Neuro motor strength exam: Left Upper Extremity: 5, Right Upper Extremity: 5, Left Lower Extremity: 5, Right Lower Extremity: 5 - Psychiatric Exam Psychiatric exam: Anxious, Normal Affect - Skin Skin Exam: Dry, Intact, Normal Color Assessment and Plan - Assessment and Plan (Free Text) Assessment: 27 year old female with past medical history of ovarian cysts who was admitted for evaluation and treatment of cough with blood tinged sputum production. Currently being treated for unprovoked first pulmonary embolus (saddle embolus) , RLE DVT with Xarelto, as well as b/l LE weakness. She is hemodynamically stable and is getting out of bed to chair as tolerated; still having significant difficulty with ambulation. Patient is anxious at baseline. Plan: 1. Unprovoked DVT/PE - Continue Xarelto - Hypercoagulable workup negative; should be repeated as outpatient after 6 months of therapy and confirmed resolution of DVT and PE - Hem/Onc on consult; appreciate recs - Cardio on consult; appreciate recs - signed off 2. Anemia - H/H improving - Continue B12 supplements - Continue PO iron 3. Abdominal Discomfort; Constipation - Stable - Continue Colace and Miralax 4. Anxiety - cont Xanax 0.5mg PO TID PRN - cont Sonata 5mg HS PRN - cont Paxil 10mg PO HS per psych - Psych consult; appreciate recs - Patient does not meet criteria for inpatient psych unit, but would benefit from from outpatient therapist (per psych recs) 5. Back Pain and Leg Weakness - Likely 2/2 deconditioning vs psychogenic vs myopathy vs neuropathy - C-spine MRI shows no acute findings, unremarkable - Per neurology, brain MRI ordered for today - Patient should have outpatient EMG per neuro - High risk fall precautions - PT/OT evaluation and treatment - Patient still not safe to discharge, cannot ambulate independantly; requires acute rehab but does not have insurance to cover it; medicaid pending - Neuro on consult; appreciate recs 6. Prophylaxis - DVT ppx - Xarelto - GI ppx - protonix PO Patient was seen, examined and discussed with attending, Dr. Liu <Long Liu - Last Filed: 12/23/17 13:28> Objective - Vital Signs/Intake and Output Vital Signs (last 24 hours): Temp Pulse Resp BP Pulse Ox 98.4 F 85 18 101/51 L 95 12/23/17 08:57 12/23/17 08:57 12/23/17 08:57 12/23/17 08:57 12/23/17 08:57 Intake and Output: 12/23/17 12/23/17 06:59 18:59 Intake Total 120 Output Total 400 Balance -280 - Medications Medications: Current Medications Acetaminophen (Tylenol 325mg Tab) 650 mg PO Q4H PRN PRN Reason: Fever >100.4 F Last Admin: 12/11/17 09:39 Dose: 650 mg Alprazolam (Xanax) 0.5 mg PO TID PRN; Protocol PRN Reason: Anxiety Last Admin: 12/12/17 23:12 Dose: 0.5 mg Cyanocobalamin (Vitamin B12 1000 Mcg Tab) 1,000 mcg PO DAILY [facility] Last Admin: 12/23/17 09:26 Dose: 1,000 mcg Docusate Sodium (Colace) 100 mg PO BID [facility] Last Admin: 12/23/17 09:25 Dose: 100 mg Ferrous Sulfate (Feosol) 324 mg PO TID [facility] Last Admin: 12/23/17 09:25 Dose: 324 mg Ibuprofen (Motrin Tab) 600 mg PO Q6H PRN PRN Reason: Pain, moderate (4-7) Last Admin: 12/19/17 21:55 Dose: 600 mg Multivitamins/Minerals (Therapeutic-M Tab) 1 tab PO 0800 [facility] Last Admin: 12/23/17 09:25 Dose: 1 tab Pantoprazole Sodium (Protonix Ec Tab) 40 mg PO 0600 [facility] Last Admin: 12/23/17 05:39 Dose: 40 mg Paroxetine HCl (Paxil) 10 mg PO HS [facility] Last Admin: 12/22/17 21:51 Dose: 10 mg Polyethylene Glycol (Miralax) 17 gm PO BID [facility] Last Admin: 12/23/17 09:30 Dose: Not Given Rivaroxaban (Xarelto) 15 mg PO BID [facility] PRN Reason: Protocol Last Admin: 12/23/17 09:25 Dose: 15 mg Zaleplon (Sonata) 5 mg PO HS PRN PRN Reason: Insomnia - Labs Labs: 12/23/17 07:00 12/23/17 07:00 PT 17.3 SECONDS (9.4-12.5) H 12/10/17 19:45 INR 1.50 (0.93-1.08) H 12/10/17 19:45 APTT 61.4 Seconds (25.1-36.5) H 12/15/17 05:30 Attending/Attestation - Attestation I have personally seen and examined this patient.: Yes I have fully participated in the care of the patient.: Yes I have reviewed all pertinent clinical information, including history, physical exam and plan: Yes Notes (Text): 12/23/17 13:28 Attending note; Patient seen and examined with resident. Patient is a 27 year old female who was admitted with first episode of unprovoked saddle pulmonary embolism and right lower extremity DVT. Patient denies any cough, hemoptysis, chest pain, dyspnea or any other complaints. leg pain is better however she continues to complain of bilateral leg weakness. neurology evaluation appreciated. Recommend nerve conduction study and EMG as outpatient. Continue Xarelto. Currently patient is off oxygen. No tachycardia or hypoxemia. Ambulating with PT without oxygen. MRI of lumbosacral spine/MRI thoracic spine and CTA Abdomen which was also normal. MRI of the cervical spine is normal. patient was started on paxil by psychiatrist. Continue xanax for anxiety. PT recommended acute rehab. Case discussed with case repairer for rehabilitation placement. Pending Medicaid. Paperwork in process. patient's sister to bring paperwork from home. Upon discharge the patient will follow-up with PMD Dr Gerda izquierdo.
--- NOTE | 2017-12-22 13:49 | MRI ---
PROCEDURE: MRI BRAIN WITHOUT CONTRAST HISTORY: LE weakness COMPARISON: None. TECHNIQUE: Multiplanar, multisequence MR images of the brain were obtained without intravenous contrast enhancement. FINDINGS: HEMORRHAGE: None DWI: No evidence of an acute or early subacute infarction. BRAIN PARENCHYMA: No mass effect or edema. No atrophy or chronic microvascular ischemic changes. VENTRICLES: Unremarkable. No hydrocephalus. CRANIUM: Unremarkable. ORBITS: Grossly unremarkable. PARANASAL SINUSES/MASTOIDS: Clear VASCULAR SYSTEM: Skull base flow voids intact. OTHER FINDINGS: None. IMPRESSION: Unremarkable non contrast enhanced MRI of the brain.
[2017-12-23] MEDS: Pantoprazole 40 mg EC Tab PO SCH (05:39)
[2017-12-23 07:24] LABS: BASO # 0.01 K/mm3 (0.0-2.0); BASO % 0.2 % (0.0-3.0); EOS # 0.2 (0.0-0.7); EOS % 3.4 % (1.5-5.0); GRAN # 3.88 (1.4-6.5); GRAN % 68.6 % (50.0-68.0); HEMOGLOBIN 10.7 g/dL (12.0-16.0); LYMPH # 1.2 (1.2-3.4); LYMPH % 21.1 % (22.0-35.0); MEAN CELL VOLUME 109.1 fl (80.0-105.0); MEAN CORPUSCULAR HEMOGLOBIN 33.8 pg (25.0-35.0); MEAN CORPUSCULAR HGB CONC 30.9 g/dl (31.0-37.0); MONO # 0.4 (0.1-0.6); MONO % 6.7 % (1.0-6.0); RBC 3.17 10^6/uL (3.5-6.1); WHITE BLOOD COUNT 5.7 10^3/ul (4.5-11.0)
[2017-12-23 07:33] LABS: ALB/GLOB RATIO 1.3 (1.1-1.8); ALBUMIN 3.5 g/dL (3.0-4.8); ALT/SGPT 36 U/L (7-56); AST/SGOT 27 U/L (14-36); BLOOD UREA NITROGEN 7 mg/dL (7-21); CALCIUM 9.9 mg/dL (8.4-10.5); GFR AFRICAN-AMERICAN > 60; GFR NON-AFRICAN AMERICAN > 60
[2017-12-23] MEDS: Multivitamin With Minerals Tab PO SCH (09:25)
[2017-12-23] MEDS: POLYETHYLENE GLYCOL 3350 17 GM/Dose PACKET PO SCH ×3 (09:26→18:00)
--- NOTE | 2017-12-23 11:31 | CP.PCM.PN ---
<Ava Fitzpatrick - Last Filed: 12/23/17 11:32> Subjective - Date & Time of Evaluation Date of Evaluation: 12/23/17 Time of Evaluation: 07:30 - Subjective Subjective: Ava Fitzpatrick DO PGY1 - IM Progress Note Patient seen and examined at bedside. No acute events overnight. Still having difficulty walking. Very apprehensive about getting up out of bed. She denies any new pain, cough, chest pain, shortness of breath, hemoptysis, fever, chills , or dysuria. Objective - Vital Signs/Intake and Output Vital Signs (last 24 hours): Temp Pulse Resp BP Pulse Ox 98.4 F 85 18 101/51 L 95 12/23/17 08:57 12/23/17 08:57 12/23/17 08:57 12/23/17 08:57 12/23/17 08:57 Intake and Output: 12/23/17 12/23/17 06:59 18:59 Intake Total 120 Output Total 400 Balance -280 - Medications Medications: Current Medications Acetaminophen (Tylenol 325mg Tab) 650 mg PO Q4H PRN PRN Reason: Fever >100.4 F Last Admin: 12/11/17 09:39 Dose: 650 mg Alprazolam (Xanax) 0.5 mg PO TID PRN; Protocol PRN Reason: Anxiety Last Admin: 12/12/17 23:12 Dose: 0.5 mg Cyanocobalamin (Vitamin B12 1000 Mcg Tab) 1,000 mcg PO DAILY [facility] Last Admin: 12/23/17 09:26 Dose: 1,000 mcg Docusate Sodium (Colace) 100 mg PO BID [facility] Last Admin: 12/23/17 09:25 Dose: 100 mg Ferrous Sulfate (Feosol) 324 mg PO TID [facility] Last Admin: 12/23/17 09:25 Dose: 324 mg Ibuprofen (Motrin Tab) 600 mg PO Q6H PRN PRN Reason: Pain, moderate (4-7) Last Admin: 12/19/17 21:55 Dose: 600 mg Multivitamins/Minerals (Therapeutic-M Tab) 1 tab PO 0800 [facility] Last Admin: 12/23/17 09:25 Dose: 1 tab Pantoprazole Sodium (Protonix Ec Tab) 40 mg PO 0600 [facility] Last Admin: 12/23/17 05:39 Dose: 40 mg Paroxetine HCl (Paxil) 10 mg PO HS [facility] Last Admin: 12/22/17 21:51 Dose: 10 mg Polyethylene Glycol (Miralax) 17 gm PO BID [facility] Last Admin: 12/23/17 09:30 Dose: Not Given Rivaroxaban (Xarelto) 15 mg PO BID [facility] PRN Reason: Protocol Last Admin: 12/23/17 09:25 Dose: 15 mg Zaleplon (Sonata) 5 mg PO HS PRN PRN Reason: Insomnia - Labs Labs: 12/23/17 07:00 12/23/17 07:00 PT 17.3 SECONDS (9.4-12.5) H 12/10/17 19:45 INR 1.50 (0.93-1.08) H 12/10/17 19:45 APTT 61.4 Seconds (25.1-36.5) H 12/15/17 05:30 - Additional Findings Additional findings: - Constitutional Appears: Non-toxic, No Acute Distress - Head Exam Head Exam: ATRAUMATIC, NORMOCEPHALIC - Eye Exam Eye Exam: EOMI, Normal appearance, PERRL - ENT Exam ENT Exam: Mucous Membranes Moist - Neck Exam Neck Exam: Normal Inspection - Respiratory Exam Respiratory Exam: Clear to Ausculation Bilateral, NORMAL BREATHING PATTERN - Cardiovascular Exam Cardiovascular Exam: RRR, +S1, +S2. absent: Tachycardia - GI/Abdominal Exam GI & Abdominal Exam: Soft, Normal Bowel Sounds. absent: Tenderness - Extremities Exam Extremities Exam: absent: Calf Tenderness, Pedal Edema - Neurological Exam Neurological Exam: Alert, Awake, Oriented x3 Neuro motor strength exam: Left Upper Extremity: 5, Right Upper Extremity: 5, Left Lower Extremity: 5, Right Lower Extremity: 5 - Psychiatric Exam Psychiatric exam: Anxious, Normal Affect - Skin Skin Exam: Dry, Intact, Normal Color Assessment and Plan - Assessment and Plan (Free Text) Assessment: 27 year old female with past medical history of ovarian cysts who was admitted for evaluation and treatment of cough with blood tinged sputum production. Currently being treated for unprovoked first pulmonary embolus (saddle embolus) , RLE DVT with Xarelto, as well as b/l LE weakness. She is hemodynamically stable and is getting out of bed to chair as tolerated; still having significant difficulty with ambulation. Patient is anxious at baseline. Plan: 1. Unprovoked DVT/PE - Continue Xarelto - Hypercoagulable workup negative; should be repeated as outpatient after 6 months of therapy and confirmed resolution of DVT and PE - Hem/Onc on consult; appreciate recs - Cardio on consult; appreciate recs - signed off 2. Anemia - H/H improving - Continue B12 supplements - Continue PO iron 3. Abdominal Discomfort; Constipation - Resolved - Continue Colace and Miralax 4. Anxiety - cont Xanax 0.5mg PO TID PRN - cont Sonata 5mg HS PRN - cont Paxil 10mg PO HS per psych - Psych consult; appreciate recs - Patient does not meet criteria for inpatient psych unit, but would benefit from from outpatient therapist (per psych recs) 5. Back Pain and Leg Weakness - Likely 2/2 deconditioning vs psychogenic vs myopathy vs neuropathy - Brain MRI done yesterday; unremarkable - Patient should have outpatient EMG per neuro - High risk fall precautions - PT/OT evaluation and treatment - Patient still not safe to discharge, cannot ambulate independantly; requires acute rehab but does not have insurance to cover it; medicaid pending - Neuro on consult; appreciate recs 6. Prophylaxis - DVT ppx - Xarelto - GI ppx - protonix PO Patient was seen, examined and discussed with attending, Dr. Liu <Long Liu - Last Filed: 12/23/17 13:30> Objective - Vital Signs/Intake and Output Vital Signs (last 24 hours): Temp Pulse Resp BP Pulse Ox 98.4 F 85 18 101/51 L 95 12/23/17 08:57 12/23/17 08:57 12/23/17 08:57 12/23/17 08:57 12/23/17 08:57 Intake and Output: 12/23/17 12/23/17 06:59 18:59 Intake Total 120 Output Total 400 Balance -280 - Medications Medications: Current Medications Acetaminophen (Tylenol 325mg Tab) 650 mg PO Q4H PRN PRN Reason: Fever >100.4 F Last Admin: 12/11/17 09:39 Dose: 650 mg Alprazolam (Xanax) 0.5 mg PO TID PRN; Protocol PRN Reason: Anxiety Last Admin: 12/12/17 23:12 Dose: 0.5 mg Cyanocobalamin (Vitamin B12 1000 Mcg Tab) 1,000 mcg PO DAILY [facility] Last Admin: 12/23/17 09:26 Dose: 1,000 mcg Docusate Sodium (Colace) 100 mg PO BID [facility] Last Admin: 12/23/17 09:25 Dose: 100 mg Ferrous Sulfate (Feosol) 324 mg PO TID [facility] Last Admin: 12/23/17 09:25 Dose: 324 mg Ibuprofen (Motrin Tab) 600 mg PO Q6H PRN PRN Reason: Pain, moderate (4-7) Last Admin: 12/19/17 21:55 Dose: 600 mg Multivitamins/Minerals (Therapeutic-M Tab) 1 tab PO 0800 [facility] Last Admin: 12/23/17 09:25 Dose: 1 tab Pantoprazole Sodium (Protonix Ec Tab) 40 mg PO 0600 [facility] Last Admin: 12/23/17 05:39 Dose: 40 mg Paroxetine HCl (Paxil) 10 mg PO HS [facility] Last Admin: 12/22/17 21:51 Dose: 10 mg Polyethylene Glycol (Miralax) 17 gm PO BID [facility] Last Admin: 12/23/17 09:30 Dose: Not Given Rivaroxaban (Xarelto) 15 mg PO BID [facility] PRN Reason: Protocol Last Admin: 12/23/17 09:25 Dose: 15 mg Zaleplon (Sonata) 5 mg PO HS PRN PRN Reason: Insomnia - Labs Labs: 12/23/17 07:00 12/23/17 07:00 PT 17.3 SECONDS (9.4-12.5) H 12/10/17 19:45 INR 1.50 (0.93-1.08) H 12/10/17 19:45 APTT 61.4 Seconds (25.1-36.5) H 12/15/17 05:30 Attending/Attestation - Attestation I have personally seen and examined this patient.: Yes I have fully participated in the care of the patient.: Yes I have reviewed all pertinent clinical information, including history, physical exam and plan: Yes Notes (Text): 12/23/17 13:29 Attending note; Patient seen and examined with resident. social sciences chair by the bedside. Patient is a 27 year old female who was admitted with first episode of unprovoked saddle pulmonary embolism and right lower extremity DVT. currently with stable respiratory status.Continue Xarelto. neurology evaluation appreciated. Recommend nerve conduction study and EMG as outpatient. MRI of lumbosacral spine/MRI thoracic spine and CTA Abdomen which was also normal. MRI of the cervical spine is normal. patient was started on paxil by psychiatrist. Continue xanax for anxiety. PT recommended acute rehab. continue physical therapy. the patient needs to complete paperwork for Medicaid. silo worker assistance appreciated. Upon discharge the patient will follow-up with PMD Dr Gerda izquierdo.
--- NOTE | 2017-12-23 13:21 | CP.PCM.PN ---
Subjective - Date & Time of Evaluation Date of Evaluation: 12/23/17 Time of Evaluation: 13:19 - Subjective Subjective: Ms Perez was seen and examined at the bedside. She is alert, oriented. She is able to move bilateral lower extremities with equal sensation. She further states of unable to tolerate prolonged ambulation. She is currently being seen by physical therapist. She is able to transfer hersalf from the bed to the bedside commode. MRI of the brain yesterday showed unremarkable results from a non-contrast MRI of the brain. There was no untoward events overnight. Objective - Vital Signs/Intake and Output Vital Signs (last 24 hours): Temp Pulse Resp BP Pulse Ox 98.4 F 85 18 101/51 L 95 12/23/17 08:57 12/23/17 08:57 12/23/17 08:57 12/23/17 08:57 12/23/17 08:57 Intake and Output: 12/23/17 12/23/17 06:59 18:59 Intake Total 120 Output Total 400 Balance -280 - Medications Medications: Current Medications Acetaminophen (Tylenol 325mg Tab) 650 mg PO Q4H PRN PRN Reason: Fever >100.4 F Last Admin: 12/11/17 09:39 Dose: 650 mg Alprazolam (Xanax) 0.5 mg PO TID PRN; Protocol PRN Reason: Anxiety Last Admin: 12/12/17 23:12 Dose: 0.5 mg Cyanocobalamin (Vitamin B12 1000 Mcg Tab) 1,000 mcg PO DAILY [facility] Last Admin: 12/23/17 09:26 Dose: 1,000 mcg Docusate Sodium (Colace) 100 mg PO BID [facility] Last Admin: 12/23/17 09:25 Dose: 100 mg Ferrous Sulfate (Feosol) 324 mg PO TID [facility] Last Admin: 12/23/17 09:25 Dose: 324 mg Ibuprofen (Motrin Tab) 600 mg PO Q6H PRN PRN Reason: Pain, moderate (4-7) Last Admin: 12/19/17 21:55 Dose: 600 mg Multivitamins/Minerals (Therapeutic-M Tab) 1 tab PO 0800 [facility] Last Admin: 12/23/17 09:25 Dose: 1 tab Pantoprazole Sodium (Protonix Ec Tab) 40 mg PO 0600 [facility] Last Admin: 12/23/17 05:39 Dose: 40 mg Paroxetine HCl (Paxil) 10 mg PO HS [facility] Last Admin: 12/22/17 21:51 Dose: 10 mg Polyethylene Glycol (Miralax) 17 gm PO BID [facility] Last Admin: 12/23/17 09:30 Dose: Not Given Rivaroxaban (Xarelto) 15 mg PO BID [facility] PRN Reason: Protocol Last Admin: 12/23/17 09:25 Dose: 15 mg Zaleplon (Sonata) 5 mg PO HS PRN PRN Reason: Insomnia - Labs Labs: 12/23/17 07:00 12/23/17 07:00 PT 17.3 SECONDS (9.4-12.5) H 12/10/17 19:45 INR 1.50 (0.93-1.08) H 12/10/17 19:45 APTT 61.4 Seconds (25.1-36.5) H 12/15/17 05:30 - Constitutional Appears: No Acute Distress - Head Exam Head Exam: NORMAL INSPECTION - Neurological Exam Neurological Exam: Alert, Awake Neuro motor strength exam: Left Upper Extremity: 5, Right Upper Extremity: 5, Left Lower Extremity: 4, Right Lower Extremity: 4 Additional comments: Neurological unchanged from previous examination. Assessment and Plan (1) Leg weakness Assessment & Plan: Case discussed with Dr. Mary, continue all current medical, physical therapies. Recommend [facility] as an outpatient with Dr. Zuhair Vann to further evaluate her leg weakness. Status: Acute
[2017-12-24] MEDS: Pantoprazole 40 mg EC Tab PO SCH (05:55)
[2017-12-24 07:01] LABS: BASO # 0.03 K/mm3 (0.0-2.0); BASO % 0.5 % (0.0-3.0); EOS # 0.2 (0.0-0.7); GRAN # 3.39 (1.4-6.5); GRAN % 61.5 % (50.0-68.0); LYMPH # 1.5 (1.2-3.4); LYMPH % 26.6 % (22.0-35.0); MEAN CELL VOLUME 110.1 fl (80.0-105.0); MEAN CORPUSCULAR HEMOGLOBIN 33.7 pg (25.0-35.0); MEAN CORPUSCULAR HGB CONC 30.6 g/dl (31.0-37.0); MEAN PLATELET VOLUME 9.4 fl (7.0-11.0); MONO # 0.4 (0.1-0.6); MONO % 7.4 % (1.0-6.0); RBC 3.26 10^6/uL (3.5-6.1); RED CELL DISTRIBUTION WIDTH 15.2 % (11.5-14.5); WHITE BLOOD COUNT 5.5 10^3/ul (4.5-11.0)
[2017-12-24 07:14] LABS: ALB/GLOB RATIO 1.2 (1.1-1.8); ALBUMIN 3.6 g/dL (3.0-4.8); ALT/SGPT 40 U/L (7-56); AST/SGOT 25 U/L (14-36); BLOOD UREA NITROGEN 9 mg/dL (7-21); GFR AFRICAN-AMERICAN > 60; GFR NON-AFRICAN AMERICAN > 60
[2017-12-24] MEDS: Multivitamin With Minerals Tab PO SCH (08:43)
[2017-12-24 08:58] VITALS: RESP 20
[2017-12-24] MEDS: POLYETHYLENE GLYCOL 3350 17 GM/Dose PACKET PO SCH (09:31)
--- NOTE | 2017-12-24 10:20 | CP.PCM.PN ---
Addendum entered and electronically signed by Ava Fitzpatrick DO 12/24/17 15:47 : Patient was seen again by PT later in the afternoon, and recommendation was changed today to AYDIN vs HWS. Patient was given a walker for free, and was observed ambulating with relative ease. Only some apprehension and easy fatigueability. Patient IS safe to discharge home, and can do most of her ADLs independantly. She also has family at home who can help her. Original Note: <Ava Fitzpatrick - Last Filed: 12/24/17 10:16> Subjective - Date & Time of Evaluation Date of Evaluation: 12/24/17 Time of Evaluation: 07:30 - Subjective Subjective: Ava Fitzpatrick DO PGY1 - IM Progress Note Patient seen and examined at bedside. No acute events overnight. Still having difficulty walking. Patient walked yesterday with her sister to the nursing station. She denies any new pain, cough, chest pain, shortness of breath, hemoptysis, fever, chills, or dysuria. Objective - Vital Signs/Intake and Output Vital Signs (last 24 hours): Temp Pulse Resp BP Pulse Ox 98.0 F 97 H 20 98/59 L 97 12/24/17 06:00 12/24/17 06:00 12/24/17 06:00 12/24/17 06:00 12/24/17 06:00 Intake and Output: 12/24/17 12/24/17 06:59 18:59 Intake Total 900 Output Total 400 Balance 500 - Medications Medications: Current Medications Acetaminophen (Tylenol 325mg Tab) 650 mg PO Q4H PRN PRN Reason: Fever >100.4 F Last Admin: 12/11/17 09:39 Dose: 650 mg Alprazolam (Xanax) 0.5 mg PO TID PRN; Protocol PRN Reason: Anxiety Last Admin: 12/12/17 23:12 Dose: 0.5 mg Cyanocobalamin (Vitamin B12 1000 Mcg Tab) 1,000 mcg PO DAILY [facility] Last Admin: 12/24/17 09:31 Dose: 1,000 mcg Docusate Sodium (Colace) 100 mg PO BID [facility] Last Admin: 12/24/17 09:30 Dose: 100 mg Ferrous Sulfate (Feosol) 324 mg PO TID [facility] Last Admin: 12/24/17 09:30 Dose: 324 mg Ibuprofen (Motrin Tab) 600 mg PO Q6H PRN PRN Reason: Pain, moderate (4-7) Last Admin: 12/19/17 21:55 Dose: 600 mg Multivitamins/Minerals (Therapeutic-M Tab) 1 tab PO 0800 [facility] Last Admin: 12/24/17 08:43 Dose: 1 tab Pantoprazole Sodium (Protonix Ec Tab) 40 mg PO 0600 [facility] Last Admin: 12/24/17 05:55 Dose: 40 mg Paroxetine HCl (Paxil) 10 mg PO HS [facility] Last Admin: 12/23/17 21:46 Dose: 10 mg Polyethylene Glycol (Miralax) 17 gm PO BID [facility] Last Admin: 12/24/17 09:31 Dose: Not Given Rivaroxaban (Xarelto) 15 mg PO BID [facility] PRN Reason: Protocol Last Admin: 12/24/17 09:30 Dose: 15 mg - Labs Labs: 12/24/17 05:30 12/24/17 05:30 PT 17.3 SECONDS (9.4-12.5) H 12/10/17 19:45 INR 1.50 (0.93-1.08) H 12/10/17 19:45 APTT 61.4 Seconds (25.1-36.5) H 12/15/17 05:30 - Additional Findings Additional findings: - Constitutional Appears: Non-toxic, No Acute Distress - Head Exam Head Exam: ATRAUMATIC, NORMOCEPHALIC - Eye Exam Eye Exam: EOMI, Normal appearance, PERRL - ENT Exam ENT Exam: Mucous Membranes Moist - Neck Exam Neck Exam: Normal Inspection - Respiratory Exam Respiratory Exam: Clear to Ausculation Bilateral, NORMAL BREATHING PATTERN - Cardiovascular Exam Cardiovascular Exam: RRR, +S1, +S2. absent: Tachycardia - GI/Abdominal Exam GI & Abdominal Exam: Soft, Normal Bowel Sounds. absent: Tenderness - Extremities Exam Extremities Exam: absent: Calf Tenderness, Pedal Edema - Neurological Exam Neurological Exam: Alert, Awake, Oriented x3 Neuro motor strength exam: Left Upper Extremity: 5, Right Upper Extremity: 5, Left Lower Extremity: 5, Right Lower Extremity: 5 - Psychiatric Exam Psychiatric exam: Anxious, Normal Affect - Skin Skin Exam: Dry, Intact, Normal Color Assessment and Plan - Assessment and Plan (Free Text) Assessment: 27 year old female with past medical history of ovarian cysts who was admitted for evaluation and treatment of unprovoked first pulmonary embolus (saddle embolus), RLE DVT, and b/l LE weakness. Patient is anxious at baseline. Plan: 1. Unprovoked DVT/PE - Continue Xarelto - Hypercoagulable workup negative; should be repeated as outpatient after 6 months of therapy and confirmed resolution of DVT and PE - Hem/Onc on consult; appreciate recs - Cardio on consult; appreciate recs - signed off 2. Anemia - Stable - Continue B12 supplements - Continue PO iron 3. Abdominal Discomfort; Constipation - Resolved - Continue Colace and Miralax 4. Anxiety - cont Xanax 0.5mg PO TID PRN - cont Sonata 5mg HS PRN - cont Paxil 10mg PO HS per psych - Psych consult; appreciate recs - Patient does not meet criteria for inpatient psych unit, but would benefit from from outpatient therapist (per psych recs) 5. Back Pain and Leg Weakness - Likely 2/2 deconditioning vs psychogenic vs myopathy vs neuropathy - Brain MRI done yesterday; unremarkable - Patient should have outpatient EMG per neuro - High risk fall precautions - PT/OT evaluation and treatment - Neuro on consult; appreciate recs 6. Prophylaxis - DVT ppx - Xarelto - GI ppx - protonix PO Dispo: Patient still not safe to discharge, cannot ambulate independantly; requires acute rehab but does not have insurance to cover it; medicaid pending. Patient now has paperwork and forms with her as part of her medicaid application. Patient was seen, examined and discussed with attending, Dr. Liu <Long Liu - Last Filed: 12/25/17 13:33> Objective - Vital Signs/Intake and Output Vital Signs (last 24 hours): Temp Pulse Resp BP Pulse Ox 98.5 F 88 20 136/75 96 12/24/17 14:00 12/24/17 14:00 12/24/17 14:00 12/24/17 14:00 12/24/17 14:00 - Labs Labs: 12/24/17 05:30 12/24/17 05:30 PT 17.3 SECONDS (9.4-12.5) H 12/10/17 19:45 INR 1.50 (0.93-1.08) H 12/10/17 19:45 APTT 61.4 Seconds (25.1-36.5) H 12/15/17 05:30 Attending/Attestation - Attestation I have personally seen and examined this patient.: Yes I have fully participated in the care of the patient.: Yes I have reviewed all pertinent clinical information, including history, physical exam and plan: Yes Notes (Text): 12/25/17 13:33 Attending note; Patient seen and examined with resident. social media marketer by the bedside. Patient is a 27 year old female who was admitted with first episode of unprovoked saddle pulmonary embolism and right lower extremity DVT. currently with stable respiratory status.Continue Xarelto. neurology evaluation appreciated. Recommend nerve conduction study and EMG as outpatient. MRI of lumbosacral spine/MRI thoracic spine and CTA Abdomen which was also normal. MRI of the cervical spine is normal. patient was started on paxil by psychiatrist. Continue xanax for anxiety. PT recommended acute rehab. continue physical therapy. the patient needs to complete paperwork for Medicaid. civil service worker assistance appreciated. Upon discharge the patient will follow-up with PMD Dr Gerda izquierdo.
--- NOTE | 2017-12-24 12:14 | CP.PCM.PN ---
Subjective - Date & Time of Evaluation Date of Evaluation: 12/24/17 Time of Evaluation: 10:30 - Subjective Subjective: Comfortable in bed but still having difficult ambulating, no fevers. Objective - Vital Signs/Intake and Output Vital Signs (last 24 hours): Temp Pulse Resp BP Pulse Ox 98.0 F 97 H 20 98/59 L 97 12/24/17 06:00 12/24/17 06:00 12/24/17 06:00 12/24/17 06:00 12/24/17 06:00 Intake and Output: 12/24/17 12/24/17 06:59 18:59 Intake Total 900 Output Total 400 Balance 500 - Medications Medications: Current Medications Acetaminophen (Tylenol 325mg Tab) 650 mg PO Q4H PRN PRN Reason: Fever >100.4 F Last Admin: 12/11/17 09:39 Dose: 650 mg Alprazolam (Xanax) 0.5 mg PO TID PRN; Protocol PRN Reason: Anxiety Last Admin: 12/12/17 23:12 Dose: 0.5 mg Cyanocobalamin (Vitamin B12 1000 Mcg Tab) 1,000 mcg PO DAILY [facility] Last Admin: 12/23/17 09:26 Dose: 1,000 mcg Docusate Sodium (Colace) 100 mg PO BID [facility] Last Admin: 12/23/17 18:00 Dose: 100 mg Ferrous Sulfate (Feosol) 324 mg PO TID [facility] Last Admin: 12/23/17 18:00 Dose: 324 mg Ibuprofen (Motrin Tab) 600 mg PO Q6H PRN PRN Reason: Pain, moderate (4-7) Last Admin: 12/19/17 21:55 Dose: 600 mg Multivitamins/Minerals (Therapeutic-M Tab) 1 tab PO 0800 [facility] Last Admin: 12/24/17 08:43 Dose: 1 tab Pantoprazole Sodium (Protonix Ec Tab) 40 mg PO 0600 [facility] Last Admin: 12/24/17 05:55 Dose: 40 mg Paroxetine HCl (Paxil) 10 mg PO HS [facility] Last Admin: 12/23/17 21:46 Dose: 10 mg Polyethylene Glycol (Miralax) 17 gm PO BID [facility] Last Admin: 12/23/17 18:00 Dose: Not Given Rivaroxaban (Xarelto) 15 mg PO BID [facility] PRN Reason: Protocol Last Admin: 12/23/17 18:00 Dose: 15 mg - Labs Labs: 12/24/17 05:30 12/24/17 05:30 PT 17.3 SECONDS (9.4-12.5) H 12/10/17 19:45 INR 1.50 (0.93-1.08) H 12/10/17 19:45 APTT 61.4 Seconds (25.1-36.5) H 12/15/17 05:30 - Constitutional Appears: Chronically Ill - Head Exam Head Exam: NORMAL INSPECTION - Respiratory Exam Respiratory Exam: Decreased Breath Sounds - Cardiovascular Exam Cardiovascular Exam: +S1, +S2 - GI/Abdominal Exam GI & Abdominal Exam: Soft. absent: Tenderness Assessment and Plan - Assessment and Plan (Free Text) Assessment: Assessment S/P Severe sepsis with hypoxic respiratory failure due to right sided pulmonary emboli S/P treatment for atypical HCAP ovarian cysts history of fracture of right patella history of community-acquired pneumonia obesity with BMI 31 Plan will continue to monitor off antibiotics since she is at risk for healthcare- associated infections HIV test is non-reactive
--- NOTE | 2017-12-24 13:31 | CP.PCM.PN ---
Subjective - Date & Time of Evaluation Date of Evaluation: 12/24/17 Time of Evaluation: 13:27 - Subjective Subjective: Ms. Perez was seen and examined at the bedside. She is alert, oriented. She states of able to ambulate with the use of walker and can tolerate a little distance in comparison from previous ambulation. She is able to move all extremities except that lower extremities are weaker than the upper. Sensation remains intact. There was no untoward events overnight. Objective - Vital Signs/Intake and Output Vital Signs (last 24 hours): Temp Pulse Resp BP Pulse Ox 98.0 F 97 H 20 98/59 L 97 12/24/17 06:00 12/24/17 06:00 12/24/17 06:00 12/24/17 06:00 12/24/17 06:00 Intake and Output: 12/24/17 12/24/17 06:59 18:59 Intake Total 900 Output Total 400 Balance 500 - Medications Medications: Current Medications Acetaminophen (Tylenol 325mg Tab) 650 mg PO Q4H PRN PRN Reason: Fever >100.4 F Last Admin: 12/11/17 09:39 Dose: 650 mg Alprazolam (Xanax) 0.5 mg PO TID PRN; Protocol PRN Reason: Anxiety Last Admin: 12/12/17 23:12 Dose: 0.5 mg Cyanocobalamin (Vitamin B12 1000 Mcg Tab) 1,000 mcg PO DAILY [facility] Last Admin: 12/24/17 09:31 Dose: 1,000 mcg Docusate Sodium (Colace) 100 mg PO BID [facility] Last Admin: 12/24/17 09:30 Dose: 100 mg Ferrous Sulfate (Feosol) 324 mg PO TID [facility] Last Admin: 12/24/17 09:30 Dose: 324 mg Ibuprofen (Motrin Tab) 600 mg PO Q6H PRN PRN Reason: Pain, moderate (4-7) Last Admin: 12/19/17 21:55 Dose: 600 mg Multivitamins/Minerals (Therapeutic-M Tab) 1 tab PO 0800 [facility] Last Admin: 12/24/17 08:43 Dose: 1 tab Pantoprazole Sodium (Protonix Ec Tab) 40 mg PO 0600 [facility] Last Admin: 12/24/17 05:55 Dose: 40 mg Paroxetine HCl (Paxil) 10 mg PO HS [facility] Last Admin: 12/23/17 21:46 Dose: 10 mg Polyethylene Glycol (Miralax) 17 gm PO BID [facility] Last Admin: 12/24/17 09:31 Dose: Not Given Rivaroxaban (Xarelto) 15 mg PO BID [facility] PRN Reason: Protocol Last Admin: 12/24/17 09:30 Dose: 15 mg - Labs Labs: 12/24/17 05:30 12/24/17 05:30 PT 17.3 SECONDS (9.4-12.5) H 12/10/17 19:45 INR 1.50 (0.93-1.08) H 12/10/17 19:45 APTT 61.4 Seconds (25.1-36.5) H 12/15/17 05:30 - Constitutional Appears: No Acute Distress - Head Exam Head Exam: NORMAL INSPECTION - Neurological Exam Neurological Exam: Alert, Awake Neuro motor strength exam: Left Upper Extremity: 5, Right Upper Extremity: 5, Left Lower Extremity: 4, Right Lower Extremity: 4 Additional comments: Neurological unchanged from previous examination. Assessment and Plan (1) Leg weakness Assessment & Plan: Case discussed with Dr. Garcia, continue all current medical, physical therapies. If patient will be discharge today to see Dr. Zuhair Vann for [employer]/ EMG to further evaluate her leg weakness. Status: Acute
--- NOTE | 2017-12-24 15:55 | CP.PCM.DIS ---
<Ava Fitzpatrick - Last Filed: 12/24/17 15:50> Provider - Provider Date of Admission: 12/09/17 22:06 Attending physician: Long Liu MD Primary care physician: Susan Dexter MD Consults: Cardio: Dewey HemOnc: Marlon ID: [id number] Neuro: Radha Time Spent in preparation of Discharge (in minutes): 65 Diagnosis - Discharge Diagnosis (1) Saddle embolism of pulmonary artery Status: Acute (2) DVT (deep venous thrombosis) Status: Acute (3) Leg weakness Status: Acute Priority: High (4) Pneumonia Status: Acute Hospital Course - Lab Results Lab Results: Micro Results 12/10/17 02:35 Naris MRSA Culture (Admit) - Final MRSA NOT DETECTED Most Recent Lab Values WBC 5.5 10^3/ul (4.5-11.0) 12/24/17 05:30 RBC 3.26 10^6/uL (3.5-6.1) L 12/24/17 05:30 Hgb 11.0 g/dL (12.0-16.0) L 12/24/17 05:30 Hct 35.9 % (36.0-48.0) L 12/24/17 05:30 MCV 110.1 fl (80.0-105.0) H 12/24/17 05:30 MCH 33.7 pg (25.0-35.0) 12/24/17 05:30 MCHC 30.6 g/dl (31.0-37.0) L 12/24/17 05:30 RDW 15.2 % (11.5-14.5) H 12/24/17 05:30 Plt Count 488 10^3/uL (120.0-450.0) H 12/24/17 05:30 MPV 9.4 fl (7.0-11.0) 12/24/17 05:30 Gran % 61.5 % (50.0-68.0) 12/24/17 05:30 Lymph % (Auto) 26.6 % (22.0-35.0) 12/24/17 05:30 [place] % (Auto) 7.4 % (1.0-6.0) H 12/24/17 05:30 Eos % (Auto) 4.0 % (1.5-5.0) 12/24/17 05:30 Baso % (Auto) 0.5 % (0.0-3.0) 12/24/17 05:30 Gran # 3.39 (1.4-6.5) 12/24/17 05:30 Lymph # (Auto) 1.5 (1.2-3.4) 12/24/17 05:30 [place] # (Auto) 0.4 (0.1-0.6) 12/24/17 05:30 Eos # (Auto) 0.2 (0.0-0.7) 12/24/17 05:30 Baso # (Auto) 0.03 K/mm3 (0.0-2.0) 12/24/17 05:30 Retic Count 1.49 % (0.5-1.5) 12/13/17 10:20 ESR 47 mm/hr (0.0-20.0) H 12/20/17 05:45 Haptoglobin 214 mg/dL (43-212) H 12/13/17 09:50 PT 17.3 SECONDS (9.4-12.5) H 12/10/17 19:45 INR 1.50 (0.93-1.08) H 12/10/17 19:45 APTT 61.4 Seconds (25.1-36.5) H 12/15/17 05:30 Thrombin Time 79 sec (13-19) H 12/10/17 11:00 Lupus Anticoagulant see note 12/10/17 11:00 LA PTT Screen 127 sec (<=40) H 12/10/17 11:00 dRVVT Mixing Study 44 sec (<=45) 12/10/17 11:00 dRVVT Mix Interpret Not indicated 12/10/17 11:00 Hexagonal Phase Confirm Weak positive (Negative) H 12/10/17 11:00 Protein C Antigen 88 % (70-140) 12/10/17 07:40 Protein C Activity 101 % (70-180) 12/10/17 11:00 Protein S Activity 86 % (60-140) 12/10/17 11:00 Protein S Antigen 126 % (70-140) 12/10/17 11:00 Antithrombin III Activ 89 % activity (80-120) 12/10/17 11:00 Factor V see note 12/10/17 11:00 pO2 83 mm/Hg (30-55) H 12/10/17 22:45 VBG pH 7.44 (7.32-7.43) H 12/10/17 22:45 VBG pCO2 32.0 (40-60) L 12/10/17 22:45 VBG HCO3 21.7 mmol/l (21-28) 12/10/17 22:45 VBG Total CO2 22.7 mmol.L (22-28) 12/10/17 22:45 VBG O2 Sat (Calc) 98.1 % (40-65) H 12/10/17 22:45 VBG Base Excess -1.6 mmol/L (0.0-2.0) L 12/10/17 22:45 VBG Potassium 3.6 mmol/L (3.6-5.2) 12/10/17 22:45 Sodium 139.0 mmol/L (132-148) 12/10/17 22:45 Chloride 112.0 mmol/L (98-107) H 12/10/17 22:45 Glucose 121 mg/dl (65-105) H 12/10/17 22:45 Lactate 0.9 mmol/L (0.7-2.1) 12/10/17 22:45 FiO2 21.0 % 12/10/17 22:45 Sodium 144 mmol/L (132-148) 12/24/17 05:30 Potassium 4.1 mmol/L (3.6-5.0) 12/24/17 05:30 Chloride 107 mmol/L (98-107) 12/24/17 05:30 Carbon Dioxide 26 mmol/L (21-33) 12/24/17 05:30 Anion Gap 15 (10-20) 12/24/17 05:30 BUN 9 mg/dL (7-21) 12/24/17 05:30 Creatinine 0.7 mg/dl (0.7-1.2) 12/24/17 05:30 Est GFR ( Amer) > 60 12/24/17 05:30 Est GFR (Non-Af Amer) > 60 12/24/17 05:30 Random Glucose 87 mg/dL (70-110) 12/24/17 05:30 Calcium 10.0 mg/dL (8.4-10.5) 12/24/17 05:30 Phosphorus 5.0 mg/dL (2.5-4.5) H 12/12/17 05:00 Magnesium 2.2 mg/dL (1.7-2.2) 12/12/17 05:00 Iron 13 ug/dL (45-180) L 12/11/17 08:00 TIBC 251 ug/dL (265-497) L 12/11/17 08:00 % Saturation 5 % (20-55) L 12/11/17 08:00 Ferritin 43.7 ng/mL 12/11/17 08:00 Total Bilirubin 0.3 mg/dL (0.2-1.3) 12/24/17 05:30 AST 25 U/L (14-36) 12/24/17 05:30 ALT 40 U/L (7-56) 12/24/17 05:30 Alkaline Phosphatase 63 U/L (38-126) 12/24/17 05:30 Lactate Dehydrogenase 874 U/L (333-699) H 12/10/17 11:00 Total Creatine Kinase 145 U/L (35-230) 12/10/17 11:00 Troponin I < 0.01 ng/mL 12/10/17 11:00 NT-Pro-B Natriuret Pep 36.3 pg/mL (0-450) 12/10/17 05:30 Total Protein 6.5 g/dL (5.8-8.3) 12/24/17 05:30 Albumin 3.6 g/dL (3.0-4.8) 12/24/17 05:30 Globulin 2.9 gm/dL 12/24/17 05:30 Albumin/Globulin Ratio 1.2 (1.1-1.8) 12/24/17 05:30 Lipase 99 U/L (23-300) 12/09/17 17:00 Vitamin B12 < 159 pg/mL (239-931) L 12/11/17 08:00 Folate > 20.0 ng/mL 12/11/17 08:00 Procalcitonin 0.14 NG/ML (0.19-0.49) L 12/11/17 15:00 TSH 3rd Generation 2.84 mIU/mL (0.46-4.68) 12/11/17 04:45 Venous Blood Potassium 3.6 mmol/L (3.6-5.2) 12/10/17 22:45 Urine Color Yellow (YELLOW) 12/09/17 13:42 Urine Appearance Turbid (CLEAR) 12/09/17 13:42 Urine pH 5.5 (4.7-8.0) 12/09/17 13:42 Ur Specific [place] >= 1.030 (1.005-1.035) 12/09/17 13:42 Urine Protein 100 mg/dL (<30 mg/dL) H 12/09/17 13:42 Urine Glucose (UA) Negative mg/dL (NEGATIVE) 12/09/17 13:42 Urine Ketones Negative mg/dL (NEGATIVE) 12/09/17 13:42 Urine Blood Large (NEGATIVE) H 12/09/17 13:42 Urine Nitrate Negative (NEGATIVE) 12/09/17 13:42 Urine Bilirubin Negative (NEGATIVE) 12/09/17 13:42 Urine Urobilinogen 1.0 E.U./dL (<1 E.U./dL) H 12/09/17 13:42 Ur Leukocyte Esterase Negative Saad/uL (NEGATIVE) 12/09/17 13:42 Urine RBC 10 - 15 /hpf (0-2) 12/09/17 13:42 Urine WBC 0 - 2 /hpf (0-6) 12/09/17 13:42 Ur Epithelial Cells 6 - 8 /hpf (0-5) 12/09/17 13:42 Urine Bacteria Few (NEG) 12/09/17 13:42 MECHELLE Screen Negative (Negative) 12/10/17 11:00 [id number] Ab <9 MARY KAY (<=20) 12/10/17 11:00 Beta-2 GPI IgG Ab <9 SGU (<=20) 12/10/17 11:00 Beta-2 GPI IgM Ab <9 SMU (<=20) 12/10/17 11:00 Phosphatidylserine IgG <10 U/mL (<10) 12/10/17 11:00 Phosphatidylserine IgA <20 U/mL (<20) 12/10/17 11:00 Phosphatidylserine IgM <25 U/mL (<25) 12/10/17 11:00 Anti-Phospholipid Intrp see note 12/10/17 11:00 Anti-Cardiolipin IgG Ab <14 GPL (<=14) 12/10/17 11:00 Anti-Cardiolipin IgA Ab <11 APL (<=11) 12/10/17 11:00 Anti-Cardiolipin IgM Ab <12 MPL (<=12) 12/10/17 11:00 Hepatitis A IgM Ab Negative (NEGATIVE) 12/12/17 05:00 Hep Bs Antigen Negative (NEGATIVE) 12/12/17 05:00 Hep B Core IgM Ab Negative (NEGATIVE) 12/12/17 05:00 Hepatitis C Antibody Negative (NEGATIVE) 12/12/17 05:00 HIV 1&2 Ag/Ab, 4th Gen Nonreactive (Nonreactive) 12/10/17 11:00 Influenza Typ A,B (EIA) Negative for flu a/b (NEGATIVE) 12/09/17 14:45 Ur L.pneumophila Ag Negative (NEGATIVE) 12/10/17 19:00 Prothrombin Mut Interp see note 12/10/17 11:00 Prothrombin Gene Mutate see note 12/10/17 11:00 Prothromb Gene Review see note 12/10/17 11:00 - Hospital Course Hospital Course: 27 year old female with past medical history of ovarian cysts who was admitted for evaluation and treatment of cough with blood tinged sputum production. Patient was found to have a pulmonary saddle embolus and a large DVT. She was initially monitored and treated in the ICU with heparin drip, which was eventually converted to an oral anticoagulant. DVT and PE were unprovoked according to the patient's history. Extensive hypercoagulable workup was done, which was all negative, though much of it was done while on heparin drip, and will have to be rechecked off anticoagulation in 9-12 months. Patient was hemodynamically stable, and eventually downgraded first to telemetry, then to med/surg. She was also treated for a pneumonia. While in med/surg, patient was also evaluated and teated for bilateral leg weakness. Extensive neurological and rheumatological workup was also negative. Patient was seen and treated by physical therapy while hospitalized, and was eventually able to get out of bed on her own and ambulate with a walker. Patient was noted to be severely anxious , and a psychosomatic component could not be ruled out. Today, patient was again seen by physical therapy, who recommended AYDIN vs HWS. She does have family members at home who will be able to assist her with her ADLs. Patient was given prescriptions for all her medications, as well as instructions on follow up. All questions were answered to her satisfaction, and she was discharged to home. Discharge Exam - Head Exam Head Exam: NORMAL INSPECTION Additional comments: Please see progress note written earlier today for physical exam findings Discharge Plan - Discharge Medications Prescriptions: Cyanocobalamin [Vitamin B12 1000 mcg Tab] 1,000 mcg PO DAILY #30 tab Docusate [Colace] 100 mg PO BID #60 cap Ferrous Sulfate [Feosol] 324 mg PO TID #90 ect PARoxetine [Paxil] 10 mg PO HS #30 tab Polyethylene Glycol 3350 [Miralax] 17 gm PO BID #30 packet Rivaroxaban [Xarelto] 15 mg PO BID #36 tab Zaleplon [Sonata] 5 mg PO HS PRN #14 cap PRN Reason: Insomnia - Follow Up Plan Condition: FAIR Disposition: HOME/ ROUTINE Instructions: Pulmonary Embolism (DC), Deep Venous Thrombosis (DC) Additional Instructions: 1. Continue taking Xarelto twice daily for 12 more days, then decrease to once daily (STARTING 01/05) 2. Continue taking Xanax three times daily as needed for anxiety 3. Continue taking Colace three times daily for constipation 4. Continue taking Miralax twice daily for constipation 5. Continue taking Feosol (iron supplement) three times daily for anemia 6. Continue taking Sonata nightly as needed for insomnia 7. Follow up with your primary care doctor within one week 8. Follow up with Dr. Mason within 1-2 weeks 9 Please followup with Psyciatrist as per PMD 10. Please take precautions in ambulating - a rolling walker has been provided 11. For any new or worsening concerns, contact your PCP immediately or return to the ER FOLLOW UP WITH DR. GIPSON [phone] Referrals: Susan Dexter MD [Primary Care Provider] - Chidi Mason MD [Medical Doctor] - Cheo Gipson MD [Staff Provider] - <Long Liu - Last Filed: 12/25/17 13:35> Provider - Provider Date of Admission: 12/09/17 22:06 Attending physician: Long Liu MD Primary care physician: Susan Dexter MD Hospital Course - Lab Results Lab Results: Micro Results 12/10/17 02:35 Naris MRSA Culture (Admit) - Final MRSA NOT DETECTED Most Recent Lab Values WBC 5.5 10^3/ul (4.5-11.0) 12/24/17 05:30 RBC 3.26 10^6/uL (3.5-6.1) L 12/24/17 05:30 Hgb 11.0 g/dL (12.0-16.0) L 12/24/17 05:30 Hct 35.9 % (36.0-48.0) L 12/24/17 05:30 MCV 110.1 fl (80.0-105.0) H 12/24/17 05:30 MCH 33.7 pg (25.0-35.0) 12/24/17 05:30 MCHC 30.6 g/dl (31.0-37.0) L 12/24/17 05:30 RDW 15.2 % (11.5-14.5) H 12/24/17 05:30 Plt Count 488 10^3/uL (120.0-450.0) H 12/24/17 05:30 MPV 9.4 fl (7.0-11.0) 12/24/17 05:30 Gran % 61.5 % (50.0-68.0) 12/24/17 05:30 Lymph % (Auto) 26.6 % (22.0-35.0) 12/24/17 05:30 [place] % (Auto) 7.4 % (1.0-6.0) H 12/24/17 05:30 Eos % (Auto) 4.0 % (1.5-5.0) 12/24/17 05:30 Baso % (Auto) 0.5 % (0.0-3.0) 12/24/17 05:30 Gran # 3.39 (1.4-6.5) 12/24/17 05:30 Lymph # (Auto) 1.5 (1.2-3.4) 12/24/17 05:30 [place] # (Auto) 0.4 (0.1-0.6) 12/24/17 05:30 Eos # (Auto) 0.2 (0.0-0.7) 12/24/17 05:30 Baso # (Auto) 0.03 K/mm3 (0.0-2.0) 12/24/17 05:30 Retic Count 1.49 % (0.5-1.5) 12/13/17 10:20 ESR 47 mm/hr (0.0-20.0) H 12/20/17 05:45 Haptoglobin 214 mg/dL (43-212) H 12/13/17 09:50 PT 17.3 SECONDS (9.4-12.5) H 12/10/17 19:45 INR 1.50 (0.93-1.08) H 12/10/17 19:45 APTT 61.4 Seconds (25.1-36.5) H 12/15/17 05:30 Thrombin Time 79 sec (13-19) H 12/10/17 11:00 Lupus Anticoagulant see note 12/10/17 11:00 LA PTT Screen 127 sec (<=40) H 12/10/17 11:00 dRVVT Mixing Study 44 sec (<=45) 12/10/17 11:00 dRVVT Mix Interpret Not indicated 12/10/17 11:00 Hexagonal Phase Confirm Weak positive (Negative) H 12/10/17 11:00 Protein C Antigen 88 % (70-140) 12/10/17 07:40 Protein C Activity 101 % (70-180) 12/10/17 11:00 Protein S Activity 86 % (60-140) 12/10/17 11:00 Protein S Antigen 126 % (70-140) 12/10/17 11:00 Antithrombin III Activ 89 % activity (80-120) 12/10/17 11:00 Factor V see note 12/10/17 11:00 pO2 83 mm/Hg (30-55) H 12/10/17 22:45 VBG pH 7.44 (7.32-7.43) H 12/10/17 22:45 VBG pCO2 32.0 (40-60) L 12/10/17 22:45 VBG HCO3 21.7 mmol/l (21-28) 12/10/17 22:45 VBG Total CO2 22.7 mmol.L (22-28) 12/10/17 22:45 VBG O2 Sat (Calc) 98.1 % (40-65) H 12/10/17 22:45 VBG Base Excess -1.6 mmol/L (0.0-2.0) L 12/10/17 22:45 VBG Potassium 3.6 mmol/L (3.6-5.2) 12/10/17 22:45 Sodium 139.0 mmol/L (132-148) 12/10/17 22:45 Chloride 112.0 mmol/L (98-107) H 12/10/17 22:45 Glucose 121 mg/dl (65-105) H 12/10/17 22:45 Lactate 0.9 mmol/L (0.7-2.1) 12/10/17 22:45 FiO2 21.0 % 12/10/17 22:45 Sodium 144 mmol/L (132-148) 12/24/17 05:30 Potassium 4.1 mmol/L (3.6-5.0) 12/24/17 05:30 Chloride 107 mmol/L (98-107) 12/24/17 05:30 Carbon Dioxide 26 mmol/L (21-33) 12/24/17 05:30 Anion Gap 15 (10-20) 12/24/17 05:30 BUN 9 mg/dL (7-21) 12/24/17 05:30 Creatinine 0.7 mg/dl (0.7-1.2) 12/24/17 05:30 Est GFR ( Amer) > 60 12/24/17 05:30 Est GFR (Non-Af Amer) > 60 12/24/17 05:30 Random Glucose 87 mg/dL (70-110) 12/24/17 05:30 Calcium 10.0 mg/dL (8.4-10.5) 12/24/17 05:30 Phosphorus 5.0 mg/dL (2.5-4.5) H 12/12/17 05:00 Magnesium 2.2 mg/dL (1.7-2.2) 12/12/17 05:00 Iron 13 ug/dL (45-180) L 12/11/17 08:00 TIBC 251 ug/dL (265-497) L 12/11/17 08:00 % Saturation 5 % (20-55) L 12/11/17 08:00 Ferritin 43.7 ng/mL 12/11/17 08:00 Total Bilirubin 0.3 mg/dL (0.2-1.3) 12/24/17 05:30 AST 25 U/L (14-36) 12/24/17 05:30 ALT 40 U/L (7-56) 12/24/17 05:30 Alkaline Phosphatase 63 U/L (38-126) 12/24/17 05:30 Lactate Dehydrogenase 874 U/L (333-699) H 12/10/17 11:00 Total Creatine Kinase 145 U/L (35-230) 12/10/17 11:00 Troponin I < 0.01 ng/mL 12/10/17 11:00 NT-Pro-B Natriuret Pep 36.3 pg/mL (0-450) 12/10/17 05:30 Total Protein 6.5 g/dL (5.8-8.3) 12/24/17 05:30 Albumin 3.6 g/dL (3.0-4.8) 12/24/17 05:30 Globulin 2.9 gm/dL 12/24/17 05:30 Albumin/Globulin Ratio 1.2 (1.1-1.8) 12/24/17 05:30 Lipase 99 U/L (23-300) 12/09/17 17:00 Vitamin B12 < 159 pg/mL (239-931) L 12/11/17 08:00 Folate > 20.0 ng/mL 12/11/17 08:00 Procalcitonin 0.14 NG/ML (0.19-0.49) L 12/11/17 15:00 TSH 3rd Generation 2.84 mIU/mL (0.46-4.68) 12/11/17 04:45 Venous Blood Potassium 3.6 mmol/L (3.6-5.2) 12/10/17 22:45 Urine Color Yellow (YELLOW) 12/09/17 13:42 Urine Appearance Turbid (CLEAR) 12/09/17 13:42 Urine pH 5.5 (4.7-8.0) 12/09/17 13:42 Ur Specific [place] >= 1.030 (1.005-1.035) 12/09/17 13:42 Urine Protein 100 mg/dL (<30 mg/dL) H 12/09/17 13:42 Urine Glucose (UA) Negative mg/dL (NEGATIVE) 12/09/17 13:42 Urine Ketones Negative mg/dL (NEGATIVE) 12/09/17 13:42 Urine Blood Large (NEGATIVE) H 12/09/17 13:42 Urine Nitrate Negative (NEGATIVE) 12/09/17 13:42 Urine Bilirubin Negative (NEGATIVE) 12/09/17 13:42 Urine Urobilinogen 1.0 E.U./dL (<1 E.U./dL) H 12/09/17 13:42 Ur Leukocyte Esterase Negative Saad/uL (NEGATIVE) 12/09/17 13:42 Urine RBC 10 - 15 /hpf (0-2) 12/09/17 13:42 Urine WBC 0 - 2 /hpf (0-6) 12/09/17 13:42 Ur Epithelial Cells 6 - 8 /hpf (0-5) 12/09/17 13:42 Urine Bacteria Few (NEG) 12/09/17 13:42 MECHELLE Screen Negative (Negative) 12/10/17 11:00 [id number] Ab <9 MARY KAY (<=20) 12/10/17 11:00 Beta-2 GPI IgG Ab <9 SGU (<=20) 12/10/17 11:00 Beta-2 GPI IgM Ab <9 [facility]U (<=20) 12/10/17 11:00 Phosphatidylserine IgG <10 U/mL (<10) 12/10/17 11:00 Phosphatidylserine IgA <20 U/mL (<20) 12/10/17 11:00 Phosphatidylserine IgM <25 U/mL (<25) 12/10/17 11:00 Anti-Phospholipid Intrp see note 12/10/17 11:00 Anti-Cardiolipin IgG Ab <14 GPL (<=14) 12/10/17 11:00 Anti-Cardiolipin IgA Ab <11 APL (<=11) 12/10/17 11:00 Anti-Cardiolipin IgM Ab <12 MPL (<=12) 12/10/17 11:00 Hepatitis A IgM Ab Negative (NEGATIVE) 12/12/17 05:00 Hep Bs Antigen Negative (NEGATIVE) 12/12/17 05:00 Hep B Core IgM Ab Negative (NEGATIVE) 12/12/17 05:00 Hepatitis C Antibody Negative (NEGATIVE) 12/12/17 05:00 HIV 1&2 Ag/Ab, 4th Gen Nonreactive (Nonreactive) 12/10/17 11:00 Influenza Typ A,B (EIA) Negative for flu a/b (NEGATIVE) 12/09/17 14:45 Ur L.pneumophila Ag Negative (NEGATIVE) 12/10/17 19:00 Prothrombin Mut Interp see note 12/10/17 11:00 Prothrombin Gene Mutate see note 12/10/17 11:00 Prothromb Gene Review see note 12/10/17 11:00 Attending/Attestation - Attestation I have personally seen and examined this patient.: Yes I have fully participated in the care of the patient.: Yes I have reviewed all pertinent clinical information, including history, physical exam and plan: Yes Notes (Text): 12/25/17 13:33 Attending note; Patient seen and examined with resident. social services assistant by the bedside. Patient is a 27 year old female who was admitted with first episode of unprovoked saddle pulmonary embolism and right lower extremity DVT. currently with stable respiratory status.on Xarelto. neurology evaluation appreciated. Recommend nerve conduction study and EMG as outpatient. MRI of lumbosacral spine/MRI thoracic spine and CTA Abdomen which was also normal. MRI of the cervical spine is normal. patient was started on paxil by psychiatrist. Continue xanax for anxiety. PT evaluation appreciated. Patient is ambulating with walker. Walker provided by the hospital. description medication given. the patient needs to complete paperwork for Medicaid. distillery worker general assistance appreciated. advised to follow-up with [facility] clinic or PMD of choice. needs close neurology follow-up as outpatient. diagnosis; Pulmonary embolism Chronic back pain Gait instability anxiety depression 12/25/17 13:35
[2017-12-24 18:34] VITALS: BP 136/75; PULSE 88; TEMP 98.5; O2SAT 96
== END 2017-12-24 17:33 | disposition home or self-care (01) | DRG 541 ==
LOC: ED 10:01 → ERH 22:06 → 2RSO 12-10 00:47 → ICU 12-10 02:44 → 3RNO 12-16 18:38
PROVIDERS: ADMIT Internal Medicine; ATTEND Internal Medicine
DX: I26.92 Saddle embolus of pulmonary artery without acute cor pulmonale (principal); I82.411 Acute embolism and thrombosis of right femoral vein; I82.431 Acute embolism and thrombosis of right popliteal vein; J18.9 Pneumonia, unspecified organism; J96.91 Respiratory failure, unspecified with hypoxia; R65.20 Severe sepsis without septic shock; N83.209 Unspecified ovarian cyst, unspecified side; F41.1 Generalized anxiety disorder; D64.9 Anemia, unspecified; F32.9 Major depressive disorder, single episode, unspecified; F63.9 Impulse disorder, unspecified; I27.20 Pulmonary hypertension, unspecified; E66.9 Obesity, unspecified; R26.2 Difficulty in walking, not elsewhere classified; M54.5 Low back pain; K59.00 Constipation, unspecified; G89.29 Other chronic pain; Y95 Nosocomial condition; Z68.31 Body mass index [BMI] 31.0-31.9, adult; Z87.891 Personal history of nicotine dependence; Z87.81 Personal history of (healed) traumatic fracture